=== PATIENT | female | born 1935 | race Caucasian/White ===

== ENCOUNTER 2019-08-16 16:30 | Observation (INO) ==
[2019-08-16] MEDS ORDERED: SODIUM CHLORIDE 0.9% 1000ML 1,000 ML IV SCH (18:30)
--- NOTE | 2019-08-16 18:51 | XRay Report ---
XR chest 1V portable CLINICAL HISTORY: syncope dyspnea COMPARISON STUDY: 08/16/2019 FINDINGS: The bones soft tissues and hemidiaphragms are normal. The cardiomediastinal silhouette is n ormal. The lungs are clear. The pulmonary vasculature is normal. IMPRESSION: Negative chest. ACT 112: Negative or not required by law. The above report was generated using voice recognition software. It may contain grammatical, syntax or spelling errors. Electronically signed by: Zachary Salguero M.D. 08/16/2019 6:50 PM
[2019-08-16 19:50] LABS: Basophils # (auto) 0.01 K/uL (0-0.2); Basophils % (auto) 0.1 %; Eosinophils # (auto) 0.06 K/uL (0-0.5); Eosinophils % (auto) 0.6 %; Hematocrit (blood only) 39.6 % (37-47); Hemoglobin 13.3 g/dL (12.0-16.0); Immature Granulocytes # (auto) 0.02 K/uL (0.00-0.02); Immature Granulocytes % (auto) 0.2 %; Lymphocytes # (auto) 1.38 K/uL (1.2-3.4); Lymphocytes % (auto) 14.8 %; Mean Corpuscular Hemoglobin 31.2 pg (25-34); Mean Corpuscular Hgb Conc 33.6 g/dL (32-36); Mean Platelet Volume 11.1 fL (7.4-10.4); Monocytes # (auto) 1.05 K/uL (0.11-0.59); Monocytes % (auto) 11.2 %; Neutrophils # (auto) 6.83 K/uL (1.4-6.5); Neutrophils % (auto) 73.1 %; Platelet Count 149 K/uL (130-400); RDW Coefficient of Variation 13.9 % (11.5-14.5); RDW Standard Deviation 46.9 fL (36.4-46.3); Red Blood Count 4.26 M/uL (4.2-5.4); White Blood Count 9.35 K/uL (4.8-10.8)
[2019-08-16 19:55] LABS: Appearance Urine Clear (Clear); Bilirubin Urine Negative (Negative); Blood Urine Negative (Negative); Color Urine Yellow; Glucose Urine UA Negative (Negative); Ketones Urine Negative (Negative); Leukocyte Esterase Urine 1+ (Negative); Nitrite Urine Negative (Negative); Protein Urine Negative (Negative); Specific Gravity Urine 1.005 (1.000-1.030); Urobilinogen Urine Negative (Negative)
[2019-08-16 20:02] LABS: Alanine Aminotransferase 17 U/L (12-78); Albumin Level 3.2 gm/dl (3.4-5.0); Aspartate Aminotransferase 14 U/L (15-37); BUN Creatinine Ratio 19.9 (10-20); Blood Urea Nitrogen 16 mg/dl (7-18); Carbon Dioxide 27 mmol/L (21-32); Chloride 98 mmol/L (98-107); Creatinine Clr Calc Pharmacy 47.9 ml/min; Est GFR (African American) 77.8; Est GFR (Non-African American) 67.1; Glucose 117 mg/dl (70-99); Magnesium 2.3 mg/dl (1.8-2.4); Sodium 132 mmol/L (136-145)
[2019-08-16 20:03] LABS: Bacteria Urine Automated Negative (Negative); Cast Urine Automated 0 /lpf (0-5); RBC Urine Automated 0-4 /hpf (0-4)
[2019-08-16 20:13] LABS: Albumin Globulin Ratio 0.8 (0.9-2); Alkaline Phosphatase 85 U/L (45-117); Bilirubin,Total 0.5 mg/dl (0.2-1); Globulin 4.1 gm/dl (2.5-4.0); Total Protein 7.3 gm/dl (6.4-8.2); Troponin I < 0.015 ng/ml (0-0.045)
--- NOTE | 2019-08-16 20:29 | CT Scan Report ---
HEAD CT NONCONTRAST CT DOSE: 537.48 mGy.cm HISTORY: syncope hit head TECHNIQUE: Multiaxial CT images of the head were performed without the use of intravenous contrast. A utomated exposure control was utilized for this study. A dose lowering technique was utilized adheri ng to the principles of ALARA. Comparison: None. Findings: The paranasal sinuses and mastoid air cells are clear. The calvarium and skull base are int act. There is no mass, hematoma, midline shift, acute infarct. White matter hypodensity is nonspecifi c but suggestive of microvascular ischemic change. The ventricles and sulci demonstrate mild age-rela dary involutional changes. Impression: No acute intracranial abnormality. Atrophy and microvascular ischemic changes. ACT 112: Negative or not required by law. Electronically signed by: Carter Edward M.D. 08/16/2019 8:28 PM
[2019-08-16] MEDS ORDERED: LABETALOL HCL IV 5 MG/ML 20ML IV STA (20:53)
--- NOTE | 2019-08-16 23:31 | Emergency Department Note ---
Entered by Bushra Bedolla acting as a scribe for Teo Molina DO History of Present Illness General Chief complaint: Syncope Stated complaint: REF'D BY DOCTOR, FAINTED THIS MORNING Source: patient Limitations: no limitations History of Present Illness Onset (ago): hour(s) (10.5) Location: head Pain Consistency: + other (episode) Maximum Pain Intensity: 8 Quality: + other (syncope ) Associated symptoms: no chest pain, no nausea/vomiting and no shortness of breath The patient is an 83 year old female who presents to the Emergency Room with complaints of a syncope episode that occurred at 08:00 this morning, about 10.5 hours ago. She reports that she felt lightheaded and woozy after making breakfast, noting that she's had a syncopal episode immediately after the symptoms. The patient reports that she fell backwards and hit her head on the handle of the oven door. The patient complains of right upper extremity soreness and back "tightness." She denies any chest pain, SOB, nausea/vomiting, urinary symptoms, and chest palpitations. The patient denies any history of heart disease and HTN. She notes a family history of heart disease. The patient reports that she was seen by her PCP, and she was referred here. Home Medications Home Medications Medication Instructions Recorded Confirmed Type ascorbic acid (vitamin C) 500 mg PO QAM #0 03/16/15 08/16/19 History Aqua-E Concentrate 0 unit PO QAM #0 03/29/18 08/16/19 History calcium carbonate-vitamin D3 1 tab PO QAM #0 03/29/18 08/16/19 History [Calcium 500 + D] cholecalciferol (vitamin D3) 1,000 unit PO QAM #0 03/29/18 08/16/19 History Allergies Allergy/AdvReac Type Severity Reaction Status Date / Time Sulfa (Sulfonamide Allergy Severe Hives Verified 08/16/19 18:41 Antibiotics) Past Med/Surg History Medical History Breast abscess LEFT BREAST, STAPH INFECTION DRAINED UNDER ANESTHESIA Surgical History History of colonoscopy 10 YR AGO S/P cataract extraction and insertion of intraocular lens Right cataract 04/24/18 Social History Preferred Language: Sri Lankan Communication Ability: Effective Procurement Director Required: No Beliefs That Will Affect Care: Taoist Taoist Beliefs: BAPTISM Current Living Situation: Spouse and Other Current Living Situation Comment: 55+ COMMUNITY Feels Safe at Home: Yes Smoking Status: Never smoker Second Hand Exposure: Yes (FATHER SMOKED) ; Hx Alcohol Use: Yes Hx Substance Use: No Review of Systems See HPI for pertinent positives & negatives. and A total of 10 systems reviewed and were otherwise negative Physical Exam Vital Signs Vital Signs - 24 hr 08/16/19 16:59 08/16/19 19:40 08/16/19 19:42 Temperature 36.8 C Temperature Source Oral Pulse Rate 96 H Pulse Rate [Left] 91 H Pulse Rate from SpO2 Sensor Pulse Rhythm Regular Pulse Rhythm [Left] Regular Pulse Strength Normal Respiratory Rate 20 24 Respiratory Effort / Characteristics Non-Labored Spontaneous Non-Labored Respiratory Depth Normal Normal Respiratory Pattern Regular Regular Blood Pressure 196/108 H Blood Pressure [Left Arm] 197/100 H Blood Pressure Mean 137 Blood Pressure Mean [Left Arm] 132 Blood Pressure Position Sitting Pulse Oximetry 95 96 97 Oxygen Delivery Method Room Air Room Air Room Air Sepsis Recent Fever Within 48 Hours No Sepsis New/Unexplained Change in Mental Status No Sepsis Action Taken by Nursing No Action Required 08/16/19 20:00 08/16/19 21:12 08/16/19 21:30 Temperature Temperature Source Pulse Rate 84 91 H 85 Pulse Rate [Left] 92 H Pulse Rate from SpO2 Sensor 85 92 H 86 Pulse Rhythm Pulse Rhythm [Left] Regular Pulse Strength Respiratory Rate 20 20 19 Respiratory Effort / Characteristics Non-Labored Respiratory Depth Normal Respiratory Pattern Regular Blood Pressure 182/94 H 195/95 H 167/75 H Blood Pressure [Left Arm] 195/95 H Blood Pressure Mean 111 159 89 Blood Pressure Mean [Left Arm] 128 Blood Pressure Position Pulse Oximetry 96 95 94 Oxygen Delivery Method Room Air Sepsis Recent Fever Within 48 Hours Sepsis New/Unexplained Change in Mental Status Sepsis Action Taken by Nursing 08/16/19 21:31 08/16/19 22:00 08/16/19 22:30 Temperature Temperature Source Pulse Rate 79 83 Pulse Rate [Left] 86 Pulse Rate from SpO2 Sensor 79 83 Pulse Rhythm Pulse Rhythm [Left] Regular Pulse Strength Respiratory Rate 20 35 H 15 Respiratory Effort / Characteristics Non-Labored Respiratory Depth Normal Respiratory Pattern Regular Blood Pressure 168/77 H 161/75 H Blood Pressure [Left Arm] 167/75 H Blood Pressure Mean 104 88 Blood Pressure Mean [Left Arm] 105 Blood Pressure Position Pulse Oximetry 93 96 96 Oxygen Delivery Method Room Air Sepsis Recent Fever Within 48 Hours Sepsis New/Unexplained Change in Mental Status Sepsis Action Taken by Nursing 08/16/19 23:00 Temperature Temperature Source Pulse Rate 88 Pulse Rate [Left] Pulse Rate from SpO2 Sensor 89 Pulse Rhythm Pulse Rhythm [Left] Pulse Strength Respiratory Rate 17 Respiratory Effort / Characteristics Respiratory Depth Respiratory Pattern Blood Pressure 161/79 H Blood Pressure [Left Arm] Blood Pressure Mean 92 Blood Pressure Mean [Left Arm] Blood Pressure Position Pulse Oximetry 96 Oxygen Delivery Method Sepsis Recent Fever Within 48 Hours Sepsis New/Unexplained Change in Mental Status Sepsis Action Taken by Nursing GENERAL: sitting up in bed, alert, well appearing, well nourished, no distress, non-toxic HEAD: contusion to the right frontal region EYE EXAM: normal conjunctiva OROPHARYNX: no exudate, no erythema, lips, buccal mucosa, and tongue normal and mucous membranes are moist NECK: supple, no nuchal rigidity, no adenopathy, non-tender LUNGS: Clear to auscultation. Normal chest wall mechanics HEART: no murmurs, S1 normal and S2 normal ABDOMEN: abdomen soft, non-tender, normo-active bowel sounds, no masses, no rebound or guarding. BACK: Back is symmetrical on inspection and there is no deformity, no midline tenderness, no CVA tenderness. SKIN: no rashes and no bruising UPPER EXTREMITIES: upper extremities are grossly normal. LOWER EXTREMITIES: No pitting edema. NEURO EXAM: Normal sensorium, cranial nerves II-XII intact, normal speech, no weakness of arms, no weakness of legs. No drift. Finger to nose intact. Gross sensation intact. GCS 15. Course Course ED COURSE: Vital signs were reviewed and showed hypertension. The patients medical record was reviewed The above diagnostic studies were performed and reviewed. ED treatments and interventions as stated above. 1828: The patient was evaluated in room C12B. A complete history and physical examination was performed. 2258: Upon reevaluation, the patient is stable. I discussed my findings with the patient and she understands and agrees with the treatment plan. 2101: [facility], about the patient's case. He will further evaluate the patient. Based on the patients age, coexisting illnesses, exam and lab findings the decision to treat as an inpatient was made. The patient remained stable while under my care. The patient will be evaluated for further management. Administered Medications Discontinued Medications Sodium Chloride (Nss 1000ml) 1,000 mls @ 999 mls/hr IV .Q1H1M KIRK Stop: 08/16/19 19:30 Last Infusion: 08/16/19 20:50 Dose: 0 mls/hr Documented by: [id number] Admin: 08/16/19 19:45 Dose: 999 mls/hr Documented by: [id number] Labetalol HCl (Normodyne) 10 mg IV NOW STA Stop: 08/16/19 20:54 Last Admin: 08/16/19 21:27 Dose: 10 mg Documented by: [id number] Cosigned by: [id number] Medical Decision Making Differential Diagnosis Differential diagnosis includes etiologies such as vasovagal event, infection, hypoglycemia, electrolyte abnormalities, cardiac sources, intracerebral event, toxicologic, neurologic, as well as others were entertained. Medical Records Attestation: I reviewed the patient's medical records. Home Medications Current Medication List: was personally reviewed by me Laboratory Data Attestation: I reviewed the patient's lab results. Result diagrams: 08/16/19 19:25 08/16/19 19:25 Lab Results 08/16/19 08/16/19 08/16/19 Range/Units 19:25 19:25 19:40 WBC 9.35 (4.8-10.8) K/uL RBC 4.26 (4.2-5.4) M/uL Hgb 13.3 (12.0-16.0) g/dL Hct 39.6 (37-47) % MCV 93.0 (80-100) fL MCH 31.2 (25-34) pg MCHC 33.6 (32-36) g/dL RDW Std Deviation 46.9 H (36.4-46.3) fL RDW Coeff of Clarence 13.9 (11.5-14.5) % Plt Count 149 (130-400) K/uL MPV 11.1 H (7.4-10.4) fL Immature Gran % (Auto) 0.2 % Neut % (Auto) 73.1 % Lymph % (Auto) 14.8 % [place] % (Auto) 11.2 % Eos % (Auto) 0.6 % Baso % (Auto) 0.1 % Immature Gran # (Auto) 0.02 (0.00-0.02) K/uL Neut # (Auto) 6.83 H (1.4-6.5) K/uL Lymph # (Auto) 1.38 (1.2-3.4) K/uL [place] # (Auto) 1.05 H (0.11-0.59) K/uL Eos # (Auto) 0.06 (0-0.5) K/uL Baso # (Auto) 0.01 (0-0.2) K/uL Sodium 132 L (136-145) mmol/L Potassium 4.0 (3.5-5.1) mmol/L Chloride 98 (98-107) mmol/L Carbon Dioxide 27 (21-32) mmol/L Anion Gap 7.0 (3-11) BUN 16 (7-18) mg/dl Creatinine 0.82 (0.6-1.2) mg/dl Est Cr Clr Drug Dosing 47.9 ml/min Est GFR ( Amer) 77.8 Est GFR (Non-Af Amer) 67.1 BUN/Creatinine Ratio 19.9 (10-20) Glucose 117 H (70-99) mg/dl Calcium 9.0 (8.5-10.1) mg/dl Magnesium 2.3 (1.8-2.4) mg/dl Total Bilirubin 0.5 (0.2-1) mg/dl AST 14 L (15-37) U/L ALT 17 (12-78) U/L Alkaline Phosphatase 85 (45-117) U/L Troponin I < 0.015 (0-0.045) ng/ml Total Protein 7.3 (6.4-8.2) gm/dl Albumin 3.2 L (3.4-5.0) gm/dl Globulin 4.1 H (2.5-4.0) gm/dl Albumin/Globulin Ratio 0.8 L (0.9-2) TSH 1.440 (0.300-4.500) uIu/ml Urine Color Yellow Urine Appearance Clear (Clear) Urine pH 7.0 (4.5-7.5) Ur Specific [place] 1.005 (1.000-1.030) Urine Protein Negative (Negative) Urine Glucose (UA) Negative (Negative) Urine Ketones Negative (Negative) Urine Blood Negative (Negative) Urine Nitrite Negative (Negative) Urine Bilirubin Negative (Negative) Urine Urobilinogen Negative (Negative) Ur Leukocyte Esterase 1+ H (Negative) Urine WBC (Auto) 1-5 (0-5) /hpf Urine RBC (Auto) 0-4 (0-4) /hpf U Hyaline Cast (Auto) 0 (0-5) /lpf U Epithel Cells (Auto) 10-20 H (0-5) /lpf Urine Bacteria (Auto) Negative (Negative) Imaging Data Radiologist's Impression: Radiology results as stated below per my review and the radiologist's interpretation: XR chest 1V portable CLINICAL HISTORY: syncope dyspnea COMPARISON STUDY: 08/16/2019 FINDINGS: The bones soft tissues and hemidiaphragms are normal. The cardiomediastinal silhouette is normal. The lungs are clear. The pulmonary vasculature is normal. IMPRESSION: Negative chest. ACT 112: Negative or not required by law. The above report was generated using voice recognition software. It may contain grammatical, syntax or spelling errors. Electronically signed by: Zachary Salguero M.D. 08/16/2019 6:[address] CT DOSE: 537.48 mGy.cm HISTORY: syncope hit head TECHNIQUE: Multiaxial CT images of the head were performed without the use of intravenous contrast. Automated exposure control was utilized for this study. A dose lowering technique was utilized adhering to the principles of ALARA. Comparison: None. Findings: The paranasal sinuses and mastoid air cells are clear. The calvarium and skull base are intact. There is no mass, hematoma, midline shift, acute infarct. White matter hypodensity is nonspecific but suggestive of microvascular ischemic change. The ventricles and sulci demonstrate mild age-related involutional changes. Impression: No acute intracranial abnormality. Atrophy and microvascular ischemic changes. ACT 112: Negative or not required by law. Electronically signed by: Carter Edward M.D. 08/16/2019 8:28 PM ECG Data Attestation: I personally reviewed and interpreted this ECG as follows: Indication: + syncope Rate (beats per minute): 90 Rhythm: + sinus rhythm ECG Findings: + Other (normal QTC); no PVCs Blood Pressure Blood Pressure Findings: Elevated blood pressure Blood Pressure Disposition: further management by hospitalist SHANE Narrative Patient is an 83-year-old female who presents the ER for syncopal episode which occurred earlier today. She notes that she felt lightheaded and she passed out. She did hit the back of her head. She has no other complaints at this time. IV was established blood work was obtained. Labs show no significant leukocytosis or anemia. BMP with mild hyponatremia. LFTs bilirubin troponin was negative. TSH unremarkable. UA was negative. Chest x-ray along with CT head was unremarkable. EKG was benign. Patient takes no medications. Blood pressure was 199 on 2 separate occasions. This in combination with her syncopal episode did feel was prudent and further evaluation was warranted by the hospitalist. Patient was given IV labetalol and blood pressures trended down to 160s. Patient was updated bedside and discussed with the hospitalist for observation. Impression & Plan Syncope, Hypertensive urgency, Acute hyponatremia Discharge Plan Visit Data Chief Complaint: Syncope Stated Complaint: REF'D BY DOCTOR, FAINTED THIS MORNING ED Provider: Teo Molina Discharge Problem: Syncope, Hypertensive urgency, Acute hyponatremia Patient Disposition: Being Evaluated by Hospitalist Forms Stand Alone Forms: My [facility] Prescriptions Prescriptions: No Action ascorbic acid (vitamin C) 500 mg Capsule, Extended Release 500 mg PO QAM Qty: 0 RF: 0 cholecalciferol (vitamin D3) 1,000 unit Capsule 1,000 unit PO QAM Qty: 0 RF: 0 calcium carbonate-vitamin D3 [Calcium 500 + D] 500 mg(1,250mg) -200 unit Tablet 1 tab PO QAM Qty: 0 RF: 0 Aqua-E Concentrate 75 unit/mL Drops 0 unit PO QAM Qty: 0 RF: 0 Referrals Referrals: Emiyl Mcdermott DO [Primary Care Provider] - Discharge Problem: Syncope Qualifiers: Syncope type: unspecified Qualified Code(s): R55 - Syncope and collapse The scribe's documentation has been prepared under my direction and personally reviewed by me in its entirety. I confirm that the note above accurately reflect s all work, treatment, procedures, and medical decision making performed by me.
[2019-08-17] MEDS ORDERED: OXYCODONE HCL IR 5 MG TAB (IMMEDIATE RELEASE) PO STA (00:30)
--- NOTE | 2019-08-17 00:30 | History & Physical Report ---
Date of Service August 17, 2019 Assessment & Plan (1) Syncope: Possible orthostasis Possible mild clinical dehydration given hyponatremia Hypertensive urgency secondary to posttraumatic back pain, right shoulder pain Rule out bony injury Asymptomatic pyuria OBS PCU Check orthostatic vitals, TTE for syncope work-up Analgesia Hold maintenance antihypertensives for now until we have objective evidence of chronic BP elevation. CT thoracic/lumbar spine RE posttraumatic back pain Right shoulder x-ray Re: Right shoulder pain PT OT eval Following urine cultures, hold antibiotics for now DVT prophylaxis per Lovenox subcu Full code History of Present Illness Chief Complaint: Syncope, back pain Primary Care Provider: Emily Mcdermott, DO History obtained from patient, family, and records. Medical history significant for skin cancer status post surgery, osteoporosis. Patient's had dry cough symptoms for about 2 days, no fever, no chills. Yesterday morning, patient was getting ready to eat breakfast when she started feeling faint like she was going to fall down. Unwitnessed syncopal event. Patient found by who heard her fall down. Patient may have been out for about 2 minutes as per at the most. Patient denies chest pain, S OB prior to fall. No witnessed seizures, tongue biting. Prior episodes in the past which patient attributes to not drinking enough water. Upper back and right shoulder pain, right-sided headache upon waking up. Patient seen at PCPs office and directed to the ER. At the ER, SBP noted to be 190s. Labetalol given at the ER. 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 Allergies Allergy/AdvReac Type Severity Reaction Status Date / Time Sulfa (Sulfonamide Allergy Severe Hives Verified 08/16/19 18:41 Antibiotics) Home Medications Home Medications Medication Instructions Recorded Confirmed Type ascorbic acid (vitamin C) 500 mg PO QAM #0 03/16/15 08/16/19 History Aqua-E Concentrate 0 unit PO QAM #0 03/29/18 08/16/19 History calcium carbonate-vitamin D3 1 tab PO QAM #0 03/29/18 08/16/19 History [Calcium 500 + D] cholecalciferol (vitamin D3) 1,000 unit PO QAM #0 03/29/18 08/16/19 History Past Med/Surg History Medical History Breast abscess LEFT BREAST, STAPH INFECTION DRAINED UNDER ANESTHESIA Surgical History History of colonoscopy 10 YR AGO S/P cataract extraction and insertion of intraocular lens Right cataract 04/24/18 Social History Preferred Language: Angolan Communication Ability: Effective Grey Tender Required: No Beliefs That Will Affect Care: None Current Living Situation: Spouse Current Living Situation Comment: 55+ COMMUNITY Other Information That Helps Us Care for You: No Feels Safe at Home: Yes Safety Concerns: Feels Safe At This Time Smoking Status: Never smoker Do You Dip or Chew Tobacco: No ; Second Hand Exposure: No ; Tobacco Cessation Education Requested by Patient: No Hx Alcohol Use: No Hx Substance Use: No Review of Systems Review of Systems: As per HPI, all 10 systems reviewed, all other ROS negative Physical Exam Physical Exam: GENERAL: Comfortable, pleasant, looks younger for stated age, no respiratory distress SKIN: Normal color, warm HEENT: [place] palpebral conjunctivae, no ptosis, dry buccal mucosa NECK : Supple, no tenderness CHEST : CTA, no tenderness HEART : RRR, no obvious murmurs BACK : Upper back tenderness ABDOMEN: Some distention, nontender EXTREMITIES : No LE swelling/tenderness, no other conspicuous deformities noted NEUROLOGIC : Coherent, no facial asymmetry, no other gross focality Results & Data Vital Signs (Past 12 Hours) Vital Signs Temp Pulse Pulse Resp BP BP Pulse Ox 08/16/19 23:00 88 17 161/79 H 96 08/16/19 22:30 83 15 161/75 H 96 08/16/19 22:00 79 35 H 168/77 H 96 08/16/19 21:31 86 20 167/75 H 93 08/16/19 21:30 85 19 167/75 H 94 08/16/19 21:12 91 H 92 H 20 195/95 H 195/95 H 95 08/16/19 20:00 84 20 182/94 H 96 08/16/19 19:42 97 08/16/19 19:40 91 H 24 197/100 H 96 08/16/19 16:59 36.8 C 96 H 20 196/108 H 95 Laboratory Results Laboratory Results WBC 9.35 K/uL (4.8-10.8) 08/16/19 19: RBC 4.26 M/uL (4.2-5.4) 08/16/19 19: Hgb 13.3 g/dL (12.0-16.0) 08/16/19 19:25 Hct 39.6 % (37-47) 08/16/19 19: MCV 93.0 fL (80-100) 08/16/19: MCH 31.2 pg (25-34) 08/16/19: MCHC 33.6 g/dL (32-36) 08/16/19: RDW Std Deviation 46.9 fL (36.4-46.3) H 08/16/19: RDW Coeff of Clarence 13.9 % (11.5-14.5) 08/16/19: Plt Count 149 K/uL (130-400) 08/16/19: MPV 11.1 fL (7.4-10.4) H 08/16/19 19:25 Immature Gran % (Auto) 0.2 % 08/16/19 19: Neut % (Auto) 73.1 % 08/16/19: Lymph % (Auto) 14.8 % 08/16/19: [place] % (Auto) 11.2 % 08/16/19:25 Eos % (Auto) 0.6 % 08/16/19: Baso % (Auto) 0.1 % 08/16/19: Immature Gran # (Auto) 0.02 K/uL (0.00-0.02) 08/16/19: Neut # (Auto) 6.83 K/uL (1.4-6.5) H 08/16/19: Lymph # (Auto) 1.38 K/uL (1.2-3.4) 08/16/19: [place] # (Auto) 1.05 K/uL (0.11-0.59) H 08/16/19 19:25 Eos # (Auto) 0.06 K/uL (0-0.5) 08/16/19: Baso # (Auto) 0.01 K/uL (0-0.2) 08/16/19 19:25 Sodium 132 mmol/L (136-145) L 08/16/19 19:25 Potassium 4.0 mmol/L (3.5-5.1) 08/16/19 19:25 Chloride 98 mmol/L (98-107) 08/16/19 19:25 Carbon Dioxide 27 mmol/L (21-32) 08/16/19 19:25 Anion Gap 7.0 (3-11) 08/16/19 19:25 BUN 16 mg/dl (7-18) 08/16/19 19:25 Creatinine 0.82 mg/dl (0.6-1.2) 08/16/19 19:25 Est Cr Clr Drug Dosing 47.9 ml/min 08/16/19 19:25 Est GFR ( Amer) 77.8 08/16/19 19:25 Est GFR (Non-Af Amer) 67.1 08/16/19 19:25 BUN/Creatinine Ratio 19.9 (10-20) 08/16/19 19:25 Glucose 117 mg/dl (70-99) H 08/16/19 19:25 Calcium 9.0 mg/dl (8.5-10.1) 08/16/19 19:25 Magnesium 2.3 mg/dl (1.8-2.4) 08/16/19 19:25 Total Bilirubin 0.5 mg/dl (0.2-1) 08/16/19 19:25 AST 14 U/L (15-37) L 08/16/19 19:25 ALT 17 U/L (12-78) 08/16/19 19:25 Alkaline Phosphatase 85 U/L (45-117) 08/16/19 19:25 Troponin I < 0.015 ng/ml (0-0.045) 08/16/19 19:25 Total Protein 7.3 gm/dl (6.4-8.2) 08/16/19 19:25 Albumin 3.2 gm/dl (3.4-5.0) L 08/16/19 19:25 Globulin 4.1 gm/dl (2.5-4.0) H 08/16/19 19:25 Albumin/Globulin Ratio 0.8 (0.9-2) L 08/16/19 19:25 TSH 1.440 uIu/ml (0.300-4.500) 08/16/19 19:25 Urine Color Yellow 08/16/19 19:40 Urine Appearance Clear (Clear) 08/16/19 19:40 Urine pH 7.0 (4.5-7.5) 08/16/19 19:40 Ur Specific [place] 1.005 (1.000-1.030) 08/16/19 19:40 Urine Protein Negative (Negative) 08/16/19 19:40 Urine Glucose (UA) Negative (Negative) 08/16/19 19:40 Urine Ketones Negative (Negative) 08/16/19 19:40 Urine Blood Negative (Negative) 08/16/19 19:40 Urine Nitrite Negative (Negative) 08/16/19 19:40 Urine Bilirubin Negative (Negative) 08/16/19 19:40 Urine Urobilinogen Negative (Negative) 08/16/19 19:40 Ur Leukocyte Esterase 1+ (Negative) H 08/16/19 19:40 Urine WBC (Auto) 1-5 /hpf (0-5) 08/16/19 19:40 Urine RBC (Auto) 0-4 /hpf (0-4) 08/16/19 19:40 U Hyaline Cast (Auto) 0 /lpf (0-5) 08/16/19 19:40 U Epithel Cells (Auto) 10-20 /lpf (0-5) H 08/16/19 19:40 Urine Bacteria (Auto) Negative (Negative) 08/16/19 19:[address] head: No acute intracranial abnormality. Atrophy and microvascular ischemic changes. Chest x-ray: Negative EKG as per my interpretation: Rate 90, NSR, normal axis, no ischemia (1) Syncope Syncope type: unspecified Qualified Code(s): R55 - Syncope and collapse
[2019-08-17] MEDS ORDERED: NITROGLYCERIN SL 0.4 MG/TAB TAB SL PRN (02:35)
[2019-08-17] MEDS ORDERED: PROMETHAZINE HCL 12.5 MG in SODIUM CHLORIDE 0.9% 50 ML IV PRN (02:35)
[2019-08-17] MEDS ORDERED: SODIUM CHLORIDE 0.9% 1000ML 1,000 ML IV ONE (02:35)
[2019-08-17] MEDS ORDERED: OXYCODONE HCL IR 5 MG TAB (IMMEDIATE RELEASE) PO PRN (02:35)
--- NOTE | 2019-08-17 05:53 | XRay Report ---
XR shoulder RT min 2V routine CLINICAL HISTORY: pain pain COMPARISON: None. DISCUSSION: The bones and joint spaces appear intact. There is no evidence of fracture, dislocation o r bony disease. Minimal degenerative change acromioclavicular joint. IMPRESSION: Minimal degenerative change. No acute process. ACT 112: Negative or not required by law. The above report was generated using voice recognition software. It may contain grammatical, syntax or spelling errors. Electronically signed by: Zachary Salguero M.D. 08/17/2019 5:52 AM
--- NOTE | 2019-08-17 06:05 | CT Scan Report ---
CT thoracic spine wo con CT DOSE: HISTORY: Pain back pain TECHNIQUE: Multiaxial CT images of the thoracic spine were performed and reformatted in the sagittal and coronal plane without the use of contrast. A dose lowering technique was utilized adhering to th e principles of ALARA. COMPARISON: None. FINDINGS: Mild compression deformity T3. Minimal retropulsion of the inferior endplate estimated 2.5 mm. Moderate degenerative disc changes throughout the remainder of the thoracic region. No additional acu te compression deformity. IMPRESSION: 1. Mild compression deformities of T3 with slight posterior retropulsion of the inferior endplate. 2. Mild degenerative disc changes throughout the remainder of the thoracic region. ACT 112: Negative or not required by law. The above report was generated using voice recognition software. It may contain grammatical, syntax or spelling errors. Electronically signed by: Zachary Salguero M.D. 08/17/2019 6:04 AM
--- NOTE | 2019-08-17 06:06 | CT Scan Report ---
CT lumbar spine wo con CT DOSE: 720.27 mGy.cm HISTORY: Pain back pain TECHNIQUE: Multiaxial CT images of the lumbar spine were performed and reformatted in the sagittal an d coronal plane without the use of contrast. A dose lowering technique was utilized adhering to the principles of ALARA. COMPARISON: None. FINDINGS: Significant degenerative disc change L5-S1. Otherwise negative CT of the lumbar spine. No major compromise of the spinal canal. IMPRESSION: Significant degenerative disc change L5-S1. Otherwise negative study. ACT 112: Negative or not required by law. The above report was generated using voice recognition software. It may contain grammatical, syntax or spelling errors. Electronically signed by: Zachary Salguero M.D. 08/17/2019 6:05 AM
[2019-08-17] MEDS: LIDOCAINE 5% 1 PATCH TD SCH (06:12)
[2019-08-17 06:50] LABS: Basophils # (auto) 0.01 K/uL (0-0.2); Basophils % (auto) 0.1 %; Eosinophils % (auto) 1.4 %; Hemoglobin 11.8 g/dL (12.0-16.0); Immature Granulocytes # (auto) 0.02 K/uL (0.00-0.02); Immature Granulocytes % (auto) 0.3 %; Lymphocytes # (auto) 1.61 K/uL (1.2-3.4); Lymphocytes % (auto) 22.1 %; Mean Corpuscular Hemoglobin 30.9 pg (25-34); Mean Corpuscular Hgb Conc 32.8 g/dL (32-36); Mean Corpuscular Volume 94.2 fL (80-100); Mean Platelet Volume 10.7 fL (7.4-10.4); Monocytes # (auto) 0.96 K/uL (0.11-0.59); Monocytes % (auto) 13.2 %; Neutrophils % (auto) 62.9 %; Platelet Count 138 K/uL (130-400); RDW Coefficient of Variation 13.7 % (11.5-14.5); RDW Standard Deviation 47.4 fL (36.4-46.3); Red Blood Count 3.82 M/uL (4.2-5.4)
[2019-08-17 07:22] LABS: BUN Creatinine Ratio 13.4 (10-20); Calcium 8.2 mg/dl (8.5-10.1); Creatinine Clr Calc Pharmacy 47.9 ml/min; Est GFR (African American) 77.8; Est GFR (Non-African American) 67.1; Potassium 3.9 mmol/L (3.5-5.1)
[2019-08-17] MEDS ORDERED: ENOXAPARIN INJ 30 MG/0.3 ML SYR SQ SCH (09:00)
[2019-08-17] MEDS ORDERED: TRAMADOL HCL 50 MG TABLET PO PRN (12:06)
--- NOTE | 2019-08-17 12:11 | Hospitalist Progress Note ---
Date of Service August 17, 2019 Assessment & Plan (1) Syncope: SYNCOPAL EPISODE r/o Orthostasis Orthostatic VS gentle IV fluids given r/o Arrhythmia Tele monitoring If unrevealing patient may need outpatient ZIO Patch monitor r/o Cardiac Structural Abnormalities Echo: pending CVA ruled out: CT head negative ACS ruled out : EKG no signs of acute ischemia unlikely Seizure Hypertensive urgency secondary to posttraumatic back pain, right shoulder pain BP normal at outpatient clinic visit prior to admission given Labetalol IV one dose at the ER, BP improved usually well controlled per patient Mild Thoracic Compression Fracture T 3, Disch Herniation s/p Fall PRN Tylenol, Tramadol PT OT eval DVT prophylaxis SCDs for now in light of recent fall Full code Disposition anticipate d/c home tomorrow when medically stable will need outpatient Senior Director [employer] Case and plan of care discussed with patient and her , daughter and son-in-law in detail at length Questions answered They are comfortable, understanding, agreeable with the plan of care Total time spent around 40 minutes Subjective Follow-up for syncopal episode Seen with patient's family at bedside visiting Patient is awake alert oriented x3, in good spirits, smiling States she feels fine overall Denies headache, dizziness, palpitations, chest pain, shortness of breath, nausea, abdominal pain, dysuria No cough or congestion today Patient reports that she was preparing breakfast at the kitchen, standing, chopping fruits and mixing cereal, when she suddenly felt "clammy" all over, denies feeling dizzy but did feel that she was going to pass out, she then fell while trying to walk to the chair. She reports she may have passed out for a minute but was able to awaken and stand up on her own, back to the chair. No confusion. Family and patient recounts that last June 2019, while at [employer], after prolonged period of standing, the patient felt "clammy" like to feeling of passing out but she sat down and did not pass out. Symptoms resolved after a few minutes. Review of Systems Review of Systems: All systems reviewed & are unremarkable except as noted in HPI & below Physical Exam Physical Exam: General- oriented x 3, not in distress, speaks in sentences with no effort or accessory muscle use Head-positive faint hematoma on the right forehead Eyes- PERRL, EOMI, anicteric ENT- oropharynx clear Neck- supple, no JVD, no adenopathy, no thyromegaly; carotids +2/2, no bruits appreciated Lungs- clear to auscultation bilaterally, no rales/wheezes Heart- normal rate, regular rhythm; no murmur, no gallop, no rub appreciated Abdomen- normal bowel sounds, nondistended, soft, nontender, no masses or hepatosplenomegaly Extremities- no pretibial edema, no calf tenderness; peripheral pulses intact Back-Lidoderm patch in place, mild tenderness upper thoracic area Neuro- alert, oriented x 3; CN 2-12 grossly intact; motor 5/5 bilaterally;sensation 100% on all extremities; no other gross focal neurologic deficits Skin- warm & dry Results & Data Vital Signs (Past 12 Hours) Vital Signs Temp Pulse Pulse Resp BP BP Pulse Ox 08/17/19 07:14 37.3 C 82 17 130/55 L 92 08/17/19 03:03 08/17/19 02:45 37.2 C 81 16 155/61 H 94 08/17/19 02:33 37.1 C 91 H 18 170/87 H 96 08/17/19 01:01 83 16 93 08/17/19 01:00 84 14 153/77 H 93 08/17/19 00:47 92 H 19 171/83 H 90 08/17/19 00:46 91 H 20 177/85 H 08/17/19 00:45 91 H 24 158/80 H 92 08/17/19 00:31 84 19 95 08/17/19 00:30 84 17 162/80 H 95 Pulse Ox 08/17/19 07:14 08/17/19 03:03 95 08/17/19 02:45 08/17/19 02:33 08/17/19 01:01 08/17/19 01:00 08/17/19 00:47 08/17/19 00:46 08/17/19 00:45 08/17/19 00:31 08/17/19 00:30 Laboratory Results Laboratory Results - last 24 hr 08/16/19 08/16/19 08/16/19 19:25 19:25 19:40 WBC 9.35 RBC 4.26 Hgb 13.3 Hct 39.6 MCV 93.0 MCH 31.2 MCHC 33.6 RDW Std Deviation 46.9 H RDW Coeff of Clarence 13.9 Plt Count 149 MPV 11.1 H Immature Gran % (Auto) 0.2 Neut % (Auto) 73.1 Lymph % (Auto) 14.8 [place] % (Auto) 11.2 Eos % (Auto) 0.6 Baso % (Auto) 0.1 Immature Gran # (Auto) 0.02 Neut # (Auto) 6.83 H Lymph # (Auto) 1.38 [place] # (Auto) 1.05 H Eos # (Auto) 0.06 Baso # (Auto) 0.01 Sodium 132 L Potassium 4.0 Chloride 98 Carbon Dioxide 27 Anion Gap 7.0 BUN 16 Creatinine 0.82 Est Cr Clr Drug Dosing 47.9 Est GFR ( Amer) 77.8 Est GFR (Non-Af Amer) 67.1 BUN/Creatinine Ratio 19.9 Glucose 117 H Calcium 9.0 Magnesium 2.3 Total Bilirubin 0.5 AST 14 L ALT 17 Alkaline Phosphatase 85 Troponin I < 0.015 Total Protein 7.3 Albumin 3.2 L Globulin 4.1 H Albumin/Globulin Ratio 0.8 L TSH 1.440 Urine Color Yellow Urine Appearance Clear Urine pH 7.0 Ur Specific [place] 1.005 Urine Protein Negative Urine Glucose (UA) Negative Urine Ketones Negative Urine Blood Negative Urine Nitrite Negative Urine Bilirubin Negative Urine Urobilinogen Negative Ur Leukocyte Esterase 1+ H Urine WBC (Auto) 1-5 Urine RBC (Auto) 0-4 U Hyaline Cast (Auto) 0 U Epithel Cells (Auto) 10-20 H Urine Bacteria (Auto) Negative 08/17/19 08/17/19 06:25 06:25 WBC 7.30 RBC 3.82 L Hgb 11.8 L Hct 36.0 L MCV 94.2 MCH 30.9 MCHC 32.8 RDW Std Deviation 47.4 H RDW Coeff of Clarence 13.7 Plt Count 138 MPV 10.7 H Immature Gran % (Auto) 0.3 Neut % (Auto) 62.9 Lymph % (Auto) 22.1 [place] % (Auto) 13.2 Eos % (Auto) 1.4 Baso % (Auto) 0.1 Immature Gran # (Auto) 0.02 Neut # (Auto) 4.60 Lymph # (Auto) 1.61 [place] # (Auto) 0.96 H Eos # (Auto) 0.10 Baso # (Auto) 0.01 Sodium 138 Potassium 3.9 Chloride 105 Carbon Dioxide 28 Anion Gap 5.0 BUN 11 Creatinine 0.82 Est Cr Clr Drug Dosing 47.9 Est GFR ( Amer) 77.8 Est GFR (Non-Af Amer) 67.1 BUN/Creatinine Ratio 13.4 Glucose 104 H Calcium 8.2 L Magnesium Total Bilirubin AST ALT Alkaline Phosphatase Troponin I Total Protein Albumin Globulin Albumin/Globulin Ratio TSH Urine Color Urine Appearance Urine pH Ur Specific [place] Urine Protein Urine Glucose (UA) Urine Ketones Urine Blood Urine Nitrite Urine Bilirubin Urine Urobilinogen Ur Leukocyte Esterase Urine WBC (Auto) Urine RBC (Auto) U Hyaline Cast (Auto) U Epithel Cells (Auto) Urine Bacteria (Auto) (1) Syncope Syncope type: unspecified Qualified Code(s): R55 - Syncope and collapse
--- NOTE | 2019-08-17 12:53 | Electrocardiogram Report ---
Test Reason : Blood Pressure : / mmHG Vent. Rate : 090 BPM Atrial Rate : 090 BPM P-R Int : 150 ms QRS Dur : 082 ms QT Int : 344 ms P-R-T Axes : 067 015 059 degrees QTc Int : 420 ms Poor data quality, interpretation may be adversely affected Normal sinus rhythm Normal ECG No previous ECGs available Confirmed by Justin Farooq ([id number]) on 08/17/2019 12:52:55 PM Referred By: Emily Mcdermott Confirmed By:Justin Farooq
[2019-08-18] MEDS: ACETAMINOPHEN 325 MG TAB PO PRN ×2 (04:02→14:34)
[2019-08-18 06:14] LABS: Basophils # (auto) 0.02 K/uL (0-0.2); Basophils % (auto) 0.2 %; Eosinophils # (auto) 0.12 K/uL (0-0.5); Eosinophils % (auto) 1.4 %; Hemoglobin 12.6 g/dL (12.0-16.0); Immature Granulocytes # (auto) 0.02 K/uL (0.00-0.02); Immature Granulocytes % (auto) 0.2 %; Lymphocytes # (auto) 1.05 K/uL (1.2-3.4); Lymphocytes % (auto) 12.2 %; Mean Corpuscular Hemoglobin 31.3 pg (25-34); Mean Corpuscular Hgb Conc 33.2 g/dL (32-36); Mean Corpuscular Volume 94.3 fL (80-100); Mean Platelet Volume 11.3 fL (7.4-10.4); Monocytes # (auto) 1.09 K/uL (0.11-0.59); Monocytes % (auto) 12.7 %; Neutrophils # (auto) 6.28 K/uL (1.4-6.5); Neutrophils % (auto) 73.3 %; Platelet Count 158 K/uL (130-400); RDW Coefficient of Variation 13.7 % (11.5-14.5); RDW Standard Deviation 47.6 fL (36.4-46.3); Red Blood Count 4.03 M/uL (4.2-5.4); White Blood Count 8.58 K/uL (4.8-10.8)
[2019-08-18 06:44] LABS: BUN Creatinine Ratio 17.5 (10-20); Calcium 7.9 mg/dl (8.5-10.1); Creatinine Clr Calc Pharmacy 43.2 ml/min; Est GFR (African American) 68.6; Est GFR (Non-African American) 59.2; Potassium 4.1 mmol/L (3.5-5.1)
[2019-08-18] MEDS: LIDOCAINE 5% 1 PATCH TD SCH (09:11)
[2019-08-18] MEDS ORDERED: AMLODIPINE BESYLATE 5 MG TAB PO ONE (12:29)
--- NOTE | 2019-08-18 13:09 | Cardiology Consultation ---
Date of Consultation August 18, 2019 Assessment & Plan (1) Syncope: Patient presents with her second syncopal episode in about a 3-month interval. Her blood pressure is uncharacteristically high for her, it does appear to be trending down however compared to yesterday. At present, I recommend a carotid duplex, this is likely low yield, but I think it would be helpful to exclude significant obstruction. There is no arrhythmia noted on telemetry thus far, however her symptoms are certainly concerning for arrhythmia. I counseled her that she should abstain from driving pending further evaluation of her loss of consciousness episodes, typically for 6 months unless we find an etiology. I am going to arrange for a 2-week cardiac heart monitor to be worn as an outpatient. If this is unrevealing, I would have a low threshold for consideration of EP consultation to consider placing a LINQ implantable loop recorder. Pt stable for discharge from my standpoint if carotid duplex is OK. 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 She and her moved to [place] a few years ago and have family including grandchildren in the area. She is blessed with good health, and is not on any routine prescription medications. Yesterday, she woke up, and reports that she was in her normal state of health. She got up to get some cereal for breakfast, and all of a sudden felt "clammy "and lost consciousness falling backwards, and hitting her back, right shoulder, and head on the oven door. Her heard the noise of her falling, and by the time he came to the kitchen, she was standing by the kitchen sink using the kitchen counter for balance. He subsequently brought her to the emergency department. Work-up on arrival was notable for significant hypertension with initial blood pressure of 196/108. She received 1 dose of labetalol, and her blood pressures have trended down in the interim time. She denies any chest discomfort or shortness of breath. She describes herself as being physically active at baseline, she participates in a [employer] class without any change in activity tolerance. She notes a similar episode of loss of consciousness during a muslim service in June,. On telemetry, sinus rhythm in the range of 60 to 90 bpm has been present, without any significant tachycardia or bradycardia and without any other arrhythmia. Allergies Allergy/AdvReac Type Severity Reaction Status Date / Time Sulfa (Sulfonamide Allergy Severe Hives Verified 08/16/19 18:41 Antibiotics) Home Medications Home Medications Medication Instructions Recorded Confirmed Type ascorbic acid (vitamin C) 500 mg PO QAM #0 03/16/15 08/16/19 History Aqua-E Concentrate 0 unit PO QAM #0 03/29/18 08/16/19 History calcium carbonate-vitamin D3 1 tab PO QAM #0 03/29/18 08/16/19 History [Calcium 500 + D] cholecalciferol (vitamin D3) 1,000 unit PO QAM #0 03/29/18 08/16/19 History Patient History Medical History Breast abscess LEFT BREAST, STAPH INFECTION DRAINED UNDER ANESTHESIA Surgical History History of colonoscopy 10 YR AGO S/P cataract extraction and insertion of intraocular lens Right cataract 04/24/18 Family History Brother Coronary heart disease CABG Social History Preferred Language: Ukrainian Communication Ability: Effective Gift Manager Required: No Beliefs That Will Affect Care: None Current Living Situation: Spouse Current Living Situation Comment: 55+ [facility] Other Information That Helps Us Care for You: No Feels Safe at Home: Yes Safety Concerns: Feels Safe At This Time Smoking Status: Never smoker Do You Dip or Chew Tobacco: No ; Second Hand Exposure: No ; Tobacco Cessation Education Requested by Patient: No Hx Alcohol Use: No Hx Substance Use: No Review of Systems Review of Systems: All systems reviewed & are unremarkable except as noted in HPI & below Physical Exam Physical Exam: Temp Pulse Resp BP Pulse Ox 36.8 C 92 H 22 161/85 H 96 08/18/19 11:44 08/18/19 11:44 08/18/19 11:44 08/18/19 11:44 08/18/19 11:47 Constitutional: WD/WN, vitals as above Neck: trachea midline, no thyromegaly Respiratory: normal respiratory effort, lungs clear to auscultation Cardiovascular: RRR, no murmur, no edema Gastrointestinal (Abdomen): normal bowel sounds, soft, nontender, no hepatosplenomegaly Neurologic: PERRL, EOMI, accommodation nl, no face palsy, no dysarthria Psychiatric: A+Ox3, euthymic affect Results & Data Vital Signs (Past 12 Hours) Vital Signs Temp Pulse Resp BP Pulse Ox 08/18/19 11:47 96 08/18/19 11:44 36.8 C 92 H 22 161/85 H 98 08/18/19 07:27 37.0 C 77 18 113/52 L 94 08/18/19 03:31 38.8 C H 91 H 16 146/74 H 91 Laboratory Results CBC 08/18/19 Range/Units 05:29 WBC 8.58 (4.8-10.8) K/uL RBC 4.03 L (4.2-5.4) M/uL Hgb 12.6 (12.0-16.0) g/dL Hct 38.0 (37-47) % Plt Count 158 (130-400) K/uL Neut # (Auto) 6.28 (1.4-6.5) K/uL Lymph # (Auto) 1.05 L (1.2-3.4) K/uL [place] # (Auto) 1.09 H (0.11-0.59) K/uL Eos # (Auto) 0.12 (0-0.5) K/uL Baso # (Auto) 0.02 (0-0.2) K/uL Comprehensive Metabolic Panel 08/18/19 Range/Units 05:29 Sodium 132 L (136-145) mmol/L Potassium 4.1 (3.5-5.1) mmol/L Chloride 101 (98-107) mmol/L Carbon Dioxide 27 (21-32) mmol/L BUN 16 (7-18) mg/dl Creatinine 0.91 (0.6-1.2) mg/dl Glucose 114 H (70-99) mg/dl Calcium 7.9 L (8.5-10.1) mg/dl Intake and Output 08/17/19 08/18/19 08/18/19 22:59 06:59 14:59 Intake Total 1399 Balance 1399 Intake: IV 1000 / 1000 Nss 1000ML 1,000 ml @ 60 mls/hr 1000 / 1000 IV .[id number] ONE Rx#:[id number] Oral 400 / 795 Other: Weight 56.4 kg (1) Syncope Syncope type: unspecified Qualified Code(s): R55 - Syncope and collapse
--- NOTE | 2019-08-18 16:59 | Ultrasound Report ---
US carotid doppler BI HISTORY: Mental status change syncope COMPARISON: None. TECHNIQUE: Real-time, grayscale, and color Doppler sonography of the carotid arteries was performed. Imaging reviewed in the transverse and longitudinal planes. All measurements were calculated based on NASCET criteria. FINDINGS: Antegrade flow is seen in the bilateral vertebral arteries. The brachial pressures are hemodynamically similar. Mild plaque formation bilaterally The peak systolic velocity within the right ICA is 57. The right systolic ratio is 0.5. The peak systolic velocity within the left ICA is 110. The left systolic ratio is 0.98. IMPRESSION: No hemodynamically significant stenosis seen within the carotid arteries. Mild bilateral plaque forma tion ACT 112: Negative or not required by law. The above report was generated using voice recognition software. It may contain grammatical, syntax or spelling errors. Electronically signed by: Zachary Salguero M.D. 08/18/2019 4:57 PM
--- NOTE | 2019-08-18 17:45 | Hospitalist Progress Note ---
Date of Service August 18, 2019 Assessment & Plan (1) Syncope: SYNCOPAL EPISODE, status post fall 2 episodes in a 3-month period Patient's symptoms and presentation may represent underlying arrhythmia During observation in the hospital, telemetry monitoring did not reveal any arrhythmia No recurrence of presyncope or syncopal episodes Echocardiogram: No significant valvular abnormalities, mild concentric LVH, left ventricular wall motion is normal, EF 55 to 60% Carotid Doppler: No significant stenosis Gear Machine Operator consulted, Dr. Bryson, recommend 2-week cardiac monitoring to be arranged by the cardiology clinic If unrevealing, patient will be referred to faith doctor for implantable a&p technician Advised not to drive for at least 6 months or until work-up for syncope has been completed Orthostasis ruled out CVA ruled out: CT head negative Acute coronary syndrome ruled out: EKG no signs of ischemia Unlikely seizure episodes Hypertensive urgency secondary to posttraumatic back pain, right shoulder pain BP systolic 190s during admission, systolic 150s during observation in telemetry unit given Labetalol IV one dose at the ER, BP improved Will start amlodipine 2.5 mg p.o. daily Continue to monitor as an outpatient, and titrate amlodipine accordingly Mild Thoracic Compression Fracture T 3, Disch Herniation s/p Fall Thoracic spine CT: 1. Mild compression deformities of T3 with slight posterior retropulsion of the inferior endplate. 2. Mild degenerative disc changes throughout the remainder of the thoracic region. No acute fracture on shoulder x-ray, lumbar spine CT scan Pain improving Continue to monitor as an outpatient Disposition Discharge to home Follow-up with primary care physician this week, patient to be called by schedule Zio patch placement as an outpatient Case and plan of care discussed with patient and her , daughter and son-in-law in detail at length All questions answered They are comfortable, understanding, agreeable with the plan of care Total time spent around 40 minutes Subjective Follow-up for syncope Seen resting in bed, comfortable, in good spirits, very pleasant States she feels fine overall, back to baseline No recurrence of syncope or presyncope Denies chest pain palpitations, shortness of breath, dizziness Ambulating the room with no problems Back pain improving, no neurologic symptoms Denies other symptoms States she is ready and would like to be discharged today Review of Systems Review of Systems: All systems reviewed & are unremarkable except as noted in HPI & below Physical Exam Physical Exam: General- oriented x 3, not in distress, speaks in sentences with no effort or accessory muscle use Eyes- anicteric Neck- no JVD Lungs- clear breath sounds BL Heart- normal rate, regular rhythm; no murmurs Abdomen- normal bowel sounds, nondistended, soft, tenderness Extremities- no pretibial edema, no calf tenderness Back-Lidoderm patch in place, no tenderness Neuro- alert, oriented x 3; no gross focal neurologic deficits Skin- warm & dry Results & Data Vital Signs (Past 12 Hours) Vital Signs Temp Pulse Resp BP Pulse Ox 08/18/19 15:13 36.9 C 86 18 138/81 95 08/18/19 11:47 96 08/18/19 11:44 36.8 C 92 H 22 161/85 H 98 08/18/19 07:27 37.0 C 77 18 113/52 L 94 (1) Syncope Syncope type: unspecified Qualified Code(s): R55 - Syncope and collapse
--- NOTE | 2019-08-18 18:27 | Discharge Summary ---
Date of Service August 18, 2019 Admission HPI Per Admitting Provider History obtained from patient, family, and records. Medical history significant for skin cancer status post surgery, osteoporosis. Patient's had dry cough symptoms for about 2 days, no fever, no chills. Yesterday morning, patient was getting ready to eat breakfast when she started feeling faint like she was going to fall down. Unwitnessed syncopal event. Patient found by who heard her fall down. Patient may have been out for about 2 minutes as per at the most. Patient denies chest pain, S OB prior to fall. No witnessed seizures, tongue biting. Prior episodes in the past which patient attributes to not drinking enough water. Upper back and right shoulder pain, right-sided headache upon waking up. Patient seen at PCPs office and directed to the ER. At the ER, SBP noted to be 190s. Labetalol given at the ER. 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 Admission Exam Per Admitting Provider GENERAL: Comfortable, pleasant, looks younger for stated age, no respiratory distress SKIN: Normal color, warm HEENT: Cylinder palpebral conjunctivae, no ptosis, dry buccal mucosa NECK : Supple, no tenderness CHEST : CTA, no tenderness HEART : RRR, no obvious murmurs BACK : Upper back tenderness ABDOMEN: Some distention, nontender EXTREMITIES : No LE swelling/tenderness, no other conspicuous deformities noted NEUROLOGIC : Coherent, no facial asymmetry, no other gross focality Principal Diagnosis Syncope Discharge Exam General- oriented x 3, not in distress, speaks in sentences with no effort or accessory muscle use Eyes- anicteric Neck- no JVD Lungs- clear breath sounds BL Heart- normal rate, regular rhythm; no murmurs Abdomen- normal bowel sounds, nondistended, soft, tenderness Extremities- no pretibial edema, no calf tenderness Back-Lidoderm patch in place, no tenderness Neuro- alert, oriented x 3; no gross focal neurologic deficits Skin- warm & dry Discharge Data Allergies Allergy/AdvReac Type Severity Reaction Status Date / Time Sulfa (Sulfonamide Allergy Severe Hives Verified 08/16/19 18:41 Antibiotics) Consultations 08/16/19 21:09 ED Decision to Admit Stat 08/17/19 02:35 Consult Case Management - Discharge Planning Routine 08/18/19 08:05 Consult Cardiology Routine Ordered Studies 08/16/19 18:34 CT head/brain wo con Stat Impression: No acute intracranial abnormality. Atrophy and microvascular ischemic changes. 08/17/19 00:31 CT lumbar spine wo con Urgent IMPRESSION: Significant degenerative disc change L5-S1. Otherwise negative study. CT thoracic spine wo con Urgent 1. Mild compression deformities of T3 with slight posterior retropulsion of the inferior endplate. 2. Mild degenerative disc changes throughout the remainder of the thoracic region. 08/18/19 13:00 US carotid doppler BI Urgent IMPRESSION: No hemodynamically significant stenosis seen within the carotid arteries. Mild bilateral plaque formation. Hospital Course (1) Syncope: SYNCOPAL EPISODE, status post fall 2 episodes in a 3-month period Patient's symptoms and presentation may represent underlying arrhythmia During observation in the hospital, telemetry monitoring did not reveal any arr hythmia No recurrence of presyncope or syncopal episodes Echocardiogram: No significant valvular abnormalities, mild concentric LVH, left ventricular wall motion is normal, EF 55 to 60% Carotid Doppler: No significant stenosis Asp Web Developer consulted, Dr. Bryson, recommend 2-week cardiac monitoring to be arranged by the cardiology clinic If unrevealing, patient will need to be referred to locomotive lubricating systems clerk for implantable monitoring and evaluation advisor Advised not to drive for at least 6 months or until work-up for syncope has been completed Orthostasis ruled out CVA ruled out: CT head negative Acute coronary syndrome ruled out: EKG no signs of ischemia Unlikely seizure episodes Hypertensive urgency secondary to posttraumatic back pain, right shoulder pain BP systolic 190s during admission, systolic 150s during observation in telemetry unit given Labetalol IV one dose at the ER, BP improved started amlodipine 2.5 mg p.o. daily, blood pressure improving Continue to monitor as an outpatient, and titrate amlodipine accordingly Mild Thoracic Compression Fracture T 3, Disch Herniation s/p Fall Thoracic spine CT: 1. Mild compression deformities of T3 with slight posterior retropulsion of the inferior endplate. 2. Mild degenerative disc changes throughout the remainder of the thoracic region. No acute fracture on shoulder x-ray, lumbar spine CT scan Pain improving Continue to monitor as an outpatient Disposition Discharge to home Follow-up with primary care physician this week, patient to be called by scheduling department Zio patch placement as an outpatient care of cardiology clinic Case and plan of care discussed with patient and her in detail and at length All questions answered They are comfortable, understanding, agreeable with the plan of care Total Time Total Time Spent Total Time Spent (In Minutes): 45 minutes Discharge Plan Discharge Items Patient Disposition: Home - Self-Care Reason For Visit: HTN URGENCY SYNCOPE Discharge Diagnosis: SYNCOPE Activity: As commented below Activity Comment: RESUME ACTIVITY GRADUALLY TOLERATED, NO HEAVY EXERTION Lifting: Wait until after follow-up appointment Exercise/Sports: Wait until after follow-up appointment Driving/Machine Use: No driving until evaluation for passing out has been completed, and cleared by primary care physician Non-emergency contact: Primary Care Provider Call non-emergency contact if: you have any medication questions, your symptoms worsen, your pain is not controlled, your pain is worsening, your pain is unusual for you, your pain is concerning for you and you have a fever Follow-up/Referrals: Emily Mcdermott DO [Primary Care Provider] - Diet: Heart Healthy Addtl Attending Provider Instructions: Your new medication is for blood pressure control: Amlodipine 2.5 mg by mouth daily. Always stay well-hydrated. Do not stand up too quickly. No driving for at least 6 months, until evaluation for loss of consciousness has been completed and cleared by primary care physician. Call primary care physician or return to the ER immediately if with recurrence of symptoms, worsening of back pain. Follow-up with primary care physician this coming week. The clinic will be calling you for an appointment. Pending Studies at Discharge: Yes Studies:: Heart monitor placement by cardiology clinic. The clinic will be montserrat ng you for details. Stand-Alone Forms: My [facility] [employer], Smoking Cessation Medications and DC Order Prescriptions: New amlodipine 2.5 mg tablet 2.5 mg PO DAILY Qty: 30 RF: 2 Continued ascorbic acid (vitamin C) 500 mg Capsule, Extended Release 500 mg PO QAM Qty: 0 RF: 0 cholecalciferol (vitamin D3) 1,000 unit Capsule 1,000 unit PO QAM Qty: 0 RF: 0 calcium carbonate-vitamin D3 [Calcium 500 + D] 500 mg(1,250mg) -200 unit Tablet 1 tab PO QAM Qty: 0 RF: 0 Aqua-E Concentrate 75 unit/mL Drops 0 unit PO QAM Qty: 0 RF: 0 Discharge Orders: Discharge Order (Routine); Ordered 08/18/19 Ordered By: Shukri Clements Admission Data Admit Date/Time: 08/17/19 00:35 Attending Provider: Shukri Clements Admit Provider: Mikie Noland Primary Care Provider: Emily Mcdermott Other Providers: Mikie Noland ; Lul Bryson Other Interventions: Discharge Summary Assessment (RN) Last Done: 08/18/19 18:10
== END 2019-08-18 18:32 | disposition home or self-care (01) ==
LOC: ED 16:30 → 2E 16:30

== ENCOUNTER 2024-07-20 08:19 | Inpatient (IN) ==
[2024-07-20 08:48] LABS: Basophils # (auto) 0.03 K/uL (0.00-0.20); Basophils % (auto) 0.6 %; Eosinophils # (auto) 0.13 K/uL (0.00-0.50); Eosinophils % (auto) 2.7 %; Hematocrit (blood only) 44.3 % (37.0-47.0); Hemoglobin 14.6 g/dl (12.0-16.0); Immature Granulocytes # (auto) 0.02 K/uL (0.01-0.20); Immature Granulocytes % (auto) 0.4 %; Lymphocytes # (auto) 1.14 K/uL (1.20-3.40); Lymphocytes % (auto) 23.3 %; Mean Corpuscular Hemoglobin 31.1 pg (25.0-34.0); Mean Corpuscular Volume 94.5 fL (80.0-100.0); Mean Platelet Volume 10.7 fL (9.4-12.4); Monocytes # (auto) 0.51 K/uL (0.11-0.59); Monocytes % (auto) 10.4 %; Neutrophils # (auto) 3.06 K/uL (1.40-6.50); Neutrophils % (auto) 62.6 %; Platelet Count 145 K/uL (130-400); RDW Coefficient of Variation 13.6 % (11.5-14.5); RDW Standard Deviation 47.4 fL (36.4-46.3); Red Blood Count 4.69 M/uL (4.20-5.40); White Blood Count 4.89 K/ul (4.8-10.8)
--- NOTE | 2024-07-20 08:57 | Emergency Department Note ---
Impression & Plan Chest pain, Hypertension, Leg weakness ED Provider Note Provider: Donnell Rea MD CHIEF COMPLAINT: Chest discomfort, leg twitching HISTORY OF PRESENT ILLNESS: Patient is a 88-year-old female past history of hypertension and hyponatremia presenting here today the ambulance from home. Patient states she was well yesterday without complaint or illness. States she got up around 6 AM and walked to the bathroom. On the way back to the bathroom developed pain to the right and left chest constant in nature. No syncope or falls. Denies discoordination on the way to the bed. No shortness of breath. No radiation of the pain to the abdomen jaw back or arms. No history of similar pain reported. No syncope. After getting back into bed did notice that her legs seem to be a little bit jumpy but not really having cramps. Maybe had this happen once before but she does not remember all details and this is not normal. No significant numbness or tingling reported. Called her daughter regarding this around 7:15 AM and ambulance was called. Patient reports maybe 6 out of 10 pain initially although pain is maybe 1 out of 10 right now. States that she was given 4 baby aspirin in the ambulance. Do not yet have breakfast this morning. No cardiac history reported for the patient. Noted to be hypertensive here however states that she was told that she does not need her blood pressure medicine anymore by her doctor. Not currently on antihypertensives. Did travel to the [facility] the beginning of June. Daughter who arrives states patient has had some memory issues but was however walking okay and not complaining of any pain yesterday evening when she dropped her off around 7:30 PM. PAST MEDICAL HISTORY: As noted above MEDICATIONS: Reviewed home medications with her and states she stopped her blood pressure medicine sometime ago as she was told she did not need SOCIAL HISTORY: Non-smoker, PHYSICAL EXAM: GENERAL: alert and oriented in no acute distress on stretcher Head: normocephalic and atraumatic EYES: No injection, discharge or icterus. EOMI. NECK: Trachea midline. ENT: Mucous membranes pink and moist. LUNGS: Airway patent. No retractions. Breath sounds clear with good air entry bilaterally. HEART: Regular rate and rhythm. No chest wall tenderness ABDOMEN: Soft and non-tender, without guarding or rebound. SKIN: Acyanotic, warm, dry, without rashes EXTREMITIES: Without swelling, tenderness or deformity NEUROLOGICAL: No aphasia. No facial droop or slurred speech. Normal strength and tone in the upper extremities. Maybe some mild weakness 3/5 in the left lower extremity. Intact strength in the right lower extremity. Sensation to gross touch normal in all extremities prickly lower extremities. EK bpm normal sinus rhythm. No PVC or PAC. No acute ST segment elevation or depression with a QTc of 444. CONTINUOUS CARDIAC MONITORING: was ordered and showed a heart rate of 70s to 80s bpm in normal sinus rhythm Patient's laboratory studies and imaging reviewed. Differential includes Cardiac ischemia, aortic dissection, pulmonary embolism, pneumothorax, pneumonia, pericarditis, myocarditis, esophageal rupture, GERD, cholecystitis, pancreatitis, musculoskeletal, electrolyte abnormality, DVT as well as other pathologies. IMPRESSION/MEDICAL DECISION MAKING: Patient with minimal discomfort now maybe 1 out of 10. Does not describe it necessarily as a sharp or pressure. No radiation. Benign abdomen. Lower suspicion for acute intra-abdominal pathology based on exam and history. EKG obtained without significant abnormality notable. Is hypertensive here. Reports that she was told she did not need her blood pressure medicine anymore. Reviewed last office note available from March 08 from the [facility]. Records at that time indicate that there were some concerns about memory. Does have some baseline kidney dysfunction creatinine of 1.1 then and [facility] 1.2. Do not see any clear documentation the patient versus to stop her antihypertensives. Do question with the documented concerns about memory if she is actually supposed to have stopped her amlodipine. Patient without evidence of significant swelling in the lower extremities on exam here. Patient is not describing cramping but a little bit of jumpiness of the legs. Not involving the arms. Doubt DVT based on exam. No travel over the last several weeks. Also not hypoxic or having significant shortness of breath and lower suspicion for PE. Not having severe tearing chest pain and doubt dissection. No other neurological symptoms. Doubt acute CVA or meningitis. Doubt seizure at this time. Will see if electrolytes are abnormal or signs of thyroid dysfunction. Troponin was sent and chest x-ray obtained in addition to basic labs and LFTs/lipase. No nausea or vomiting reported. Blood work obtained today and reassuring. No findings of significant anemia or leukocytosis with a normal platelet count today. Doubt hepatitis or pancreatitis based on history and labs. No significant electrolyte abnormality signs of acute renal dysfunction today. Troponin returns today at 17. No priors for comparison. 1 view chest x-ray per my interpretation without evidence of pneumothorax, pneumonia, cardiomegaly, or free air. No mediastinal widening noted. Testing here without obvious evidence of electrolyte abnormality or findings to indicate cause of some "jumpiness "and twitching occasionally at the lower extremities. Reviewed no other neurological deficit. Does seem to be fairly hypertensive. Blood work reassuring other than very slightly elevated troponin of 17 however no prior baseline unsure if this is her chronic level as it is still quite low. While here patient had to urinate. Was too weak to stand even with assistance. Straight cath performed for clear urine sent for UA. Again no report of any significant abdominal or back pain. Does have neurology appointment in August given some of the memory issues for further evaluation. Will obtain a head CT and angiogram to exclude an occult bleed or vascular abnormality. Seems atypical but cannot entirely exclude CVA. Again not giving other symptoms of back discomfort concern for cauda equina or spinal abscess/infection. Patient again not reporting any dizziness symptoms. Daughter reports she is noted recently increasing memory issues. Seems like the patient probably did get up and use the bathroom earlier but is quite weak now. Given the nonspecific nature, questionable last known well, and lack of focality do not believe the patient qualifies for any thrombolytics or stroke alert at this point. As were doing CT angiograms will complete a CT of the chest to exclude PE. Not again having back or abdominal pain and doubt aortic dissection. CTA of the head and neck and CT head per radiology report are reassuring without acute abnormalities notable. CT of the chest without evidence of PE questioning some bronchitis but no pneumonia findings. Some esophageal thickening is noted. Will give a dose of some Protonix. Discussed with patient and her daughter at bedside findings. Recommended given her age, poorly controlled hypertension, still slight chest discomfort with borderline troponin here of 17, and her ambulatory dysfunction we bring her in for further evaluation and care. Still need to further elucidate why her increased leg weakness has occurred. Question of the chest pain may have would be more esophageal in nature. DIAGNOSIS: Chest pain, hypertension, leg weakness DISPOSITION: Hospitalist will evaluate Patient was agreeable with this plan. Past Med/Surg History Problem List (Updated 07/20/24 @ 13:[address] PA-C) Stroke-like symptoms Leg weakness (Acute) Hypertension (Acute) Chest pain (Acute) Non-healing wound of left lower extremity (Acute) Syncope (Acute) Hypertensive urgency (Acute) Acute hyponatremia (Acute) Encounter for pre-operative examination Finger avulsion (Acute) Medical History (Updated 07/20/24 @ 13:[address] PA-C) Breast abscess LEFT BREAST, STAPH INFECTION DRAINED UNDER ANESTHESIA Surgical History S/P cataract extraction and insertion of intraocular lens Right cataract 04/24/18 History of colonoscopy 10 YR AGO Family History Brother Coronary heart disease CABG Social History Smoking Status: Never smoker Second Hand Exposure: No; Do You Dip or Chew Tobacco: No; Hx Alcohol Use: No Hx Substance Use: No Preferred Language: Georgian Communication Ability: Effective [employer] Required: No Beliefs That Will Affect Care: None Current Living Situation: Alone Current Living Situation Comment: 55+ COMMUNITY Feels Safe at Home: Yes Assistive Devices: None Allergies Allergies Allergy/AdvReac Type Severity Reaction Status Date / Time Sulfa (Sulfonamide Allergy Severe Hives Verified 10/10/22 10:00 Antibiotics) Home Meds Home Medications Medication Instructions Recorded Confirmed ascorbic acid (vitamin C) 500 mg 500 mg PO QAM ##0 03/16/15 07/20/24 capsule,extended release calcium 500 mg (as 1 tab PO QAM ##0 03/29/18 07/20/24 carbonate)-vitamin D3 5 mcg (200 unit) tablet (Calcium 500 + D) cholecalciferol (vitamin D3) 25 1,000 unit PO QAM ##0 03/29/18 07/20/24 mcg (1,000 unit) capsule amlodipine 2.5 mg tablet 2.5 mg PO UD 07/20/24 07/20/24 carboxymethylcellulose sodium 0.5 1 drp ophthalmic (eye) TID 07/20/24 07/20/24 % eye drops (Refresh Tears) Results & Data (ED) Vital Signs Vital Signs - 24 hr 07/20/24 08:19 07/20/24 08:24 07/20/24 08:32 Temperature 36.7 C Temperature Source Oral Pulse Rate 79 Respiratory Rate 19 Blood Pressure 177/104 H Blood Pressure Mean 128 Pulse Oximetry 94 95 96 Oxygen Delivery Method Room Air Room Air Room Air Sepsis Recent Fever Within 48 Hours No Sepsis New/Unexplained Change in Mental Status N/A Sepsis Action Taken by Nursing No Action Required 07/20/24 08:34 07/20/24 09:00 07/20/24 09:30 Temperature Temperature Source Pulse Rate 75 Respiratory Rate Blood Pressure 169/75 H 182/92 H Blood Pressure Mean 111 122 Pulse Oximetry Oxygen Delivery Method Sepsis Recent Fever Within 48 Hours Sepsis New/Unexplained Change in Mental Status Sepsis Action Taken by Nursing 07/20/24 09:30 07/20/24 09:33 07/20/24 09:38 Temperature Temperature Source Pulse Rate 73 Respiratory Rate 22 Blood Pressure 182/92 H 167/89 H Blood Pressure Mean 122 122 Pulse Oximetry Oxygen Delivery Method Sepsis Recent Fever Within 48 Hours Sepsis New/Unexplained Change in Mental Status Sepsis Action Taken by Nursing 07/20/24 09:42 07/20/24 09:51 07/20/24 09:54 Temperature Temperature Source Pulse Rate 80 75 76 Respiratory Rate 17 13 24 Blood Pressure Blood Pressure Mean Pulse Oximetry Oxygen Delivery Method Sepsis Recent Fever Within 48 Hours Sepsis New/Unexplained Change in Mental Status Sepsis Action Taken by Nursing 07/20/24 10:00 07/20/24 10:06 Temperature Temperature Source Pulse Rate 76 Respiratory Rate 24 Blood Pressure 173/94 H Blood Pressure Mean 111 Pulse Oximetry 95 Oxygen Delivery Method Sepsis Recent Fever Within 48 Hours Sepsis New/Unexplained Change in Mental Status Sepsis Action Taken by Nursing Laboratory Data 07/20/24 08:26 07/20/24 08:26 Lab Results 07/20/24 07/20/24 Range/Units 08:26 09:39 WBC 4.89 (4.8-10.8) K/ul RBC 4.69 (4.20-5.40) M/uL Hgb 14.6 (12.0-16.0) g/dl Hct 44.3 (37.0-47.0) % MCV 94.5 (80.0-100.0) fL MCH 31.1 (25.0-34.0) pg MCHC 33.0 (32.0-36.0) g/dL RDW Std Deviation 47.4 H (36.4-46.3) fL RDW Coeff of Clarence 13.6 (11.5-14.5) % Plt Count 145 (130-400) K/uL MPV 10.7 (9.4-12.4) fL Immature Gran % (Auto) 0.4 % Neut % (Auto) 62.6 % Lymph % (Auto) 23.3 % [place] % (Auto) 10.4 % Eos % (Auto) 2.7 % Baso % (Auto) 0.6 % Neut # (Auto) 3.06 (1.40-6.50) K/uL Lymph # (Auto) 1.14 L (1.20-3.40) K/uL [place] # (Auto) 0.51 (0.11-0.59) K/uL Eos # (Auto) 0.13 (0.00-0.50) K/uL Baso # (Auto) 0.03 (0.00-0.20) K/uL Immature Gran # (Auto) 0.02 (0.01-0.20) K/uL PT 10.0 (9.0-12.0) Seconds INR 0.9 (0.9-1.1) Sodium 140 (136-145) mmol/L Potassium 4.0 (3.5-5.1) mmol/L Chloride 106 (98-107) mmol/L Carbon Dioxide 28 (21-32) mmol/L Anion Gap 6 (3-11) BUN 26 H (6-23) mg/dl Creatinine 0.93 (0.6-1.2) mg/dl Est Cr Clr Drug Dosing 36.7 ml/min eGFR 59.86 BUN/Creatinine Ratio 28.0 H (10-20) Glucose 112 H (70-99(Fasting)) mg/dl Calcium 8.9 (8.6-10.3) mg/dl Magnesium 2.2 (1.7-2.4) mg/dl Total Bilirubin 0.5 (0.2-1.0) mg/dl AST 20 (13-39) U/L ALT 20 (7-52) U/L Alkaline Phosphatase 72 (34-104) U/L Troponin I High Sens 17.2 H (0-14) pg/ml Total Protein 7.0 (6.0-8.3) gm/dl Albumin 3.8 (3.4-5.0) gm/dl Globulin 3.2 (2.5-4.0) gm/dl Albumin/Globulin Ratio 1.2 (0.9-2) Lipase 27 (11-82) U/L TSH 1.122 (0.300-4.500) uIu/ml Urine Color Yellow Urine Appearance Clear (Clear) Urine pH 7.5 (4.5-7.5) Ur Specific [place] 1.009 (1.000-1.030) Urine Protein Negative (Negative) Urine Glucose (UA) Negative (Negative) Urine Ketones Negative (Negative) Urine Blood Negative (Negative) Urine Nitrite Negative (Negative) Urine Bilirubin Negative (Negative) Urine Urobilinogen Negative (Negative) Ur Leukocyte Esterase Negative (Negative) Administered Medications Discontinued Medications Pantoprazole Sodium (Protonix) 40 mg in 10 mls @ 5 mls/min IV NOW ONE Stop: 07/20/24 11:15 Last Admin: 07/20/24 12:41 Dose: 5 mls/min Documented By: GLORIA Ioversol (Optiray 320 125ml) 112 ml IV ONCE ONE Stop: 07/20/24 10:16 Last Admin: 07/20/24 10:16 Dose: 112 ml Documented By: CAMRON Imaging Data Radiologist's Impression: Chest X-Ray 07/20/24 08:29 XR chest 1V portable HISTORY: 88 years-old Female Chest pain, nonspecific COMPARISON: CTA chest of same day TECHNIQUE: AP view of the chest FINDINGS: Cardiac silhouette is enlarged. Ill-defined interstitial coarsening corresponds with the groundglass densities seen on the same day CTA chest. No pneumothorax, pleural effusion or overt pulmonary edema. IMPRESSION: 1. No airspace consolidation typical for pneumonia. 2. Please refer to the CTA chest of same day for additional findings. ACT 112: Negative or not required by law. The above report was generated using voice recognition software. It may contain grammatical, syntax or spelling errors. Electronically signed by: Vernon Srinivasan M.D. 07/20/2024 10:38 AM Chest CTA 07/20/24 10:03 CT angio chest PE protocol HISTORY: 88 years-old Female with PE, CP, leg weakness. Acute chest pain with shortness of breath TECHNIQUE: Multiple CTA images of the chest were obtained after the intravenous administration of 112 ml Optiray. Coronal and sagittal MIPS were obtained from the axial data set and were submitted for review. All measurements were obtained according to NASCET criteria. A dose lowering technique was utilized adhering to the principles of ALARA. COMPARISON: CT thoracic spine 08/17/2019 FINDINGS: CTA: Moderate cardiomegaly. No pericardial effusion. There is prominent atherosclerosis of the descending and imaged upper abdominal aorta. No thoracic aortic aneurysm or dissection. No pulmonary emboli. CT CHEST: Unremarkable thyroid. Calcified mediastinal and hilar lymph nodes. There is circumferential wall thickening noted throughout the majority of the esophagus. There is no pneumothorax, pleural effusion or pulmonary edema. Mild biapical pleural-parenchymal scarring. Ground glass densities with intermixed mosaic attenuation. Areas of mucous plugging are noted within the lung bases. Bronchial wall thickening. No suspicious pulmonary nodules or masses. 4 mm subpleural solid nodule within the lateral segment right middle lobe on image 65 is of low clinical suspicion. Calcified granulomata spleen and liver. No acute fracture. Healed chronic lateral left rib fractures. IMPRESSION: 1. No pulmonary emboli. 2. Findings suggestive of bronchitis bronchitis with mucus plugging, bilateral atelectasis and air trapping. 3. No pleural effusion or airspace consolidation typical for pneumonia. 4. Prior granulomatous disease. 5. Nonspecific diffuse esophageal wall thickening suspicious for esophagitis. ACT 112: Negative or not required by law. The above report was generated using voice recognition software. It may contain grammatical, syntax or spelling errors. Electronically signed by: Vernon Srinivasan M.D. 07/20/2024 11:[address] 07/20/24 10:03 CT angio head w con, CT head/brain wo con, CT angio neck with con CLINICAL HISTORY: 88 years-old Female with leg weakness. Acute stroke like symptoms with lower extremity muscle spasms and hypertension COMPARISON STUDY: CT head 08/16/2019, CT thoracic spine 08/17/2019. TECHNIQUE: Unenhanced axial CT scan of the brain is performed. Subsequently, following the IV administration of 112 cc of Optiray, CT angiogram of the head and was performed. Images are reviewed in the axial, sagittal, and coronal planes. 3-D MIPS images are created and assessed. IV contrast was administered without complication. All measurements were obtained according to NASCET criteria. A dose lowering technique was utilized adhering to the principles of ALARA. CT DOSE: 1387.1 mGy.cm FINDINGS: CT BRAIN: There is no acute intracranial hemorrhage, midline shift, hydrocephalus, intracranial mass, territorial ischemia or abnormal extra-axial collections. No abnormal intra-axial or extra-axial enhancement. Involutional changes with chronic microvascular ischemic disease. Mastoid air cells and middle ear cavities are clear. No calvarial fracture. Paranasal sinuses are clear. Benign- appearing 10 mm calcified lesion of the superior left frontal scalp on image [address] ANGIOGRAM OF THE HEAD AND NECK: Atherosclerosis of the thoracic aortic arch. The imaged pulmonary arteries unremarkable. Common and internal carotid arteries are patent. Atherosclerosis of the supraclinoid segment right ICA on image 109 causes moderate stenosis. Atherosclerosis of the left greater than right carotid bulbs and proximal internal carotid arteries. Dominant right vertebral artery. The vertebral arteries are patent bilaterally. The bilateral anterior and middle cerebral arteries are also patent. Moderate multifocal stenoses throughout the left posterior cerebral artery. No aneurysm, dissection or arterial occlusion identified. Lung apices are clear without pneumothorax. Biapical pleural parenchymal scarring. Unremarkable soft tissues. Moderate chronic T3 compression deformity with progressive vertebral body height loss. Degenerative changes of the spine. Mild nonspecific proximal esophageal wall thickening. IMPRESSION: 1. No acute intracranial abnormality. 2. Unremarkable CTA of the head and neck. 3. Nonspecific esophageal wall thickening. Correlate clinically to exclude esophagitis. ACT 112: Negative or not required by law. The above report was generated using voice recognition software. It may contain grammatical, syntax or spelling errors. Electronically signed by: Vernon Srinivasan M.D. 07/20/2024 11:03 AM Head CTA 07/20/24 10:03 CT angio head w con, CT head/brain wo con, CT angio neck with con CLINICAL HISTORY: 88 years-old Female with leg weakness. Acute stroke like symptoms with lower extremity muscle spasms and hypertension COMPARISON STUDY: CT head 08/16/2019, CT thoracic spine 08/17/2019. TECHNIQUE: Unenhanced axial CT scan of the brain is performed. Subsequently, following the IV administration of 112 cc of Optiray, CT angiogram of the head and was performed. Images are reviewed in the axial, sagittal, and coronal planes. 3-D MIPS images are created and assessed. IV contrast was administered without complication. All measurements were obtained according to NASCET criteria. A dose lowering technique was utilized adhering to the principles of ALARA. CT DOSE: 1387.1 mGy.cm FINDINGS: CT BRAIN: There is no acute intracranial hemorrhage, midline shift, hydrocephalus, intracranial mass, territorial ischemia or abnormal extra-axial collections. No abnormal intra-axial or extra-axial enhancement. Involutional changes with chronic microvascular ischemic disease. Mastoid air cells and middle ear cavities are clear. No calvarial fracture. Paranasal sinuses are clear. Benign- appearing 10 mm calcified lesion of the superior left frontal scalp on image [address] ANGIOGRAM OF THE HEAD AND NECK: Atherosclerosis of the thoracic aortic arch. The imaged pulmonary arteries unremarkable. Common and internal carotid arteries are patent. Atherosclerosis of the supraclinoid segment right ICA on image 109 causes moderate stenosis. Atherosclerosis of the left greater than right carotid bulbs and proximal internal carotid arteries. Dominant right vertebral artery. The vertebral arteries are patent bilaterally. The bilateral anterior and middle cerebral arteries are also patent. Moderate multifocal stenoses throughout the left posterior cerebral artery. No aneurysm, dissection or arterial occlusion identified. Lung apices are clear without pneumothorax. Biapical pleural parenchymal scarring. Unremarkable soft tissues. Moderate chronic T3 compression deformity with progressive vertebral body height loss. Degenerative changes of the spine. Mild nonspecific proximal esophageal wall thickening. IMPRESSION: 1. No acute intracranial abnormality. 2. Unremarkable CTA of the head and neck. 3. Nonspecific esophageal wall thickening. Correlate clinically to exclude esophagitis. ACT 112: Negative or not required by law. The above report was generated using voice recognition software. It may contain grammatical, syntax or spelling errors. Electronically signed by: Vernon Srinivasan M.D. 07/20/2024 11:03 AM Neck CTA 07/20/24 10:03 CT angio head w con, CT head/brain wo con, CT angio neck with con CLINICAL HISTORY: 88 years-old Female with leg weakness. Acute stroke like symptoms with lower extremity muscle spasms and hypertension COMPARISON STUDY: CT head 08/16/2019, CT thoracic spine 08/17/2019. TECHNIQUE: Unenhanced axial CT scan of the brain is performed. Subsequently, following the IV administration of 112 cc of Optiray, CT angiogram of the head and was performed. Images are reviewed in the axial, sagittal, and coronal planes. 3-D MIPS images are created and assessed. IV contrast was administered without complication. All measurements were obtained according to NASCET criteria. A dose lowering technique was utilized adhering to the principles of ALARA. CT DOSE: 1387.1 mGy.cm FINDINGS: CT BRAIN: There is no acute intracranial hemorrhage, midline shift, hydrocephalus, intracranial mass, territorial ischemia or abnormal extra-axial collections. No abnormal intra-axial or extra-axial enhancement. Involutional changes with chronic microvascular ischemic disease. Mastoid air cells and middle ear cavities are clear. No calvarial fracture. Paranasal sinuses are clear. Benign- appearing 10 mm calcified lesion of the superior left frontal scalp on image [address] ANGIOGRAM OF THE HEAD AND NECK: Atherosclerosis of the thoracic aortic arch. The imaged pulmonary arteries unremarkable. Common and internal carotid arteries are patent. Atherosclerosis of the supraclinoid segment right ICA on image 109 causes moderate stenosis. Atherosclerosis of the left greater than right carotid bulbs and proximal internal carotid arteries. Dominant right vertebral artery. The vertebral arteries are patent bilaterally. The bilateral anterior and middle cerebral arteries are also patent. Moderate multifocal stenoses throughout the left posterior cerebral artery. No aneurysm, dissection or arterial occlusion identified. Lung apices are clear without pneumothorax. Biapical pleural parenchymal scarring. Unremarkable soft tissues. Moderate chronic T3 compression deformity with progressive vertebral body height loss. Degenerative changes of the spine. Mild nonspecific proximal esophageal wall thickening. IMPRESSION: 1. No acute intracranial abnormality. 2. Unremarkable CTA of the head and neck. 3. Nonspecific esophageal wall thickening. Correlate clinically to exclude esophagitis. ACT 112: Negative or not required by law. The above report was generated using voice recognition software. It may contain grammatical, syntax or spelling errors. Electronically signed by: Vernon Srinivasan M.D. 07/20/2024 11:03 AM Discharge Plan Visit Data Chief Complaint: Chest Pain Stated Complaint: CHEST PAIN, UNSTEADY ON FEET ED Provider: Donnell Rea Discharge Problem: Chest pain, Hypertension, Leg weakness Patient Disposition: Admitted As Inpatient Discharge Instructions Interventions: ED Discharge Assessment Last Done: 07/20/24 14:45 Discharge Problem: Chest pain Qualifiers: Chest pain type: unspecified Qualified Code(s): R07.9 - Chest pain, unspecified Hypertension Qualifiers: Hypertension type: primary hypertension Qualified Code(s): I10 - Essential (primary) hypertension
[2024-07-20 09:01] LABS: Albumin Globulin Ratio 1.2 (0.9-2); Albumin Level 3.8 gm/dl (3.4-5.0); Bilirubin,Total 0.5 mg/dl (0.2-1.0); Calcium 8.9 mg/dl (8.6-10.3); Creatinine Clr Calc Pharmacy 36.7 ml/min; Globulin 3.2 gm/dl (2.5-4.0); Magnesium 2.2 mg/dl (1.7-2.4)
[2024-07-20 09:07] LABS: Troponin I High Sensitivity 17.2 pg/ml (0-14)
[2024-07-20 09:16] LABS: INR 0.9 (0.9-1.1); Thyroid Stimulating Hormone 1.122 uIu/ml (0.300-4.500)
[2024-07-20 10:14] LABS: Appearance Urine Clear (Clear); Bilirubin Urine Negative (Negative); Blood Urine Negative (Negative); Color Urine Yellow; Glucose Urine UA Negative (Negative); Ketones Urine Negative (Negative); Leukocyte Esterase Urine Negative (Negative); Nitrite Urine Negative (Negative); Protein Urine Negative (Negative); Specific Gravity Urine 1.009 (1.000-1.030); Urobilinogen Urine Negative (Negative); pH Urine 7.5 (4.5-7.5)
[2024-07-20] MEDS: OPTIRAY 320 125ml IV ONE (10:16)
--- NOTE | 2024-07-20 10:39 | XRay Report ---
XR chest 1V portable HISTORY: 88 years-old Female Chest pain, nonspecific COMPARISON: CTA chest of same day TECHNIQUE: AP view of the chest FINDINGS: Cardiac silhouette is enlarged. Ill-defined interstitial coarsening corresponds with the groundglass densities seen on the same day CTA chest. No pneumothorax, pleural effusion or overt pulmonary edema. IMPRESSION: 1. No airspace consolidation typical for pneumonia. 2. Please refer to the CTA chest of same day for additional findings. ACT 112: Negative or not required by law. The above report was generated using voice recognition software. It may contain grammatical, syntax o r spelling errors. Electronically signed by: Vernon Srinivasan M.D. 07/20/2024 10:38 AM
--- NOTE | 2024-07-20 11:06 | CT Scan Report ---
CT angio head w con, CT head/brain wo con, CT angio neck with con CLINICAL HISTORY: 88 years-old Female with leg weakness. Acute stroke like symptoms with lower ext remity muscle spasms and hypertension COMPARISON STUDY: CT head 08/16/2019, CT thoracic spine 08/17/2019. TECHNIQUE: Unenhanced axial CT scan of the brain is performed. Subsequently, following the IV adminis tration of 112 cc of Optiray, CT angiogram of the head and was performed. Images are reviewed in the axial, sagittal, and coronal planes. 3-D MIPS images are created and assessed. IV contrast was admini stered without complication. All measurements were obtained according to NASCET criteria. A dose lowe ring technique was utilized adhering to the principles of ALARA. CT DOSE: 1387.1 mGy.cm FINDINGS: CT BRAIN: There is no acute intracranial hemorrhage, midline shift, hydrocephalus, intracranial mass, territori al ischemia or abnormal extra-axial collections. No abnormal intra-axial or extra-axial enhancement. Involutional changes with chronic microvascular ischemic disease. Mastoid air cells and middle ear ca vities are clear. No calvarial fracture. Paranasal sinuses are clear. Benign-appearing 10 mm calcifie d lesion of the superior left frontal scalp on image [address] ANGIOGRAM OF THE HEAD AND NECK: Atherosclerosis of the thoracic aortic arch. The imaged pulmonary arteries unremarkable. Common and i nternal carotid arteries are patent. Atherosclerosis of the supraclinoid segment right ICA on image 1 09 causes moderate stenosis. Atherosclerosis of the left greater than right carotid bulbs and proxima l internal carotid arteries. Dominant right vertebral artery. The vertebral arteries are patent bilat erally. The bilateral anterior and middle cerebral arteries are also patent. Moderate multifocal sten oses throughout the left posterior cerebral artery. No aneurysm, dissection or arterial occlusion lien ntified. Lung apices are clear without pneumothorax. Biapical pleural parenchymal scarring. Unremarkable soft tissues. Moderate chronic T3 compression deformity with progressive vertebral body height loss. Degen erative changes of the spine. Mild nonspecific proximal esophageal wall thickening. IMPRESSION: 1. No acute intracranial abnormality. 2. Unremarkable CTA of the head and neck. 3. Nonspecific esophageal wall thickening. Correlate clinically to exclude esophagitis. ACT 112: Negative or not required by law. The above report was generated using voice recognition software. It may contain grammatical, syntax o r spelling errors. Electronically signed by: Vernon Srinivasan M.D. 07/20/2024 11:03 AM
--- NOTE | 2024-07-20 11:12 | CT Scan Report ---
CT angio chest PE protocol HISTORY: 88 years-old Female with PE, CP, leg weakness. Acute chest pain with shortness of breath TECHNIQUE: Multiple CTA images of the chest were obtained after the intravenous administration of 112 ml Optiray. Coronal and sagittal MIPS were obtained from the axial data set and were submitted for review. All measurements were obtained according to NASCET criteria. A dose lowering technique was u tilized adhering to the principles of ALARA. COMPARISON: CT thoracic spine 08/17/2019 FINDINGS: CTA: Moderate cardiomegaly. No pericardial effusion. There is prominent atherosclerosis of the descending and imaged upper abdominal aorta. No thoracic aortic aneurysm or dissection. No pulmonary emboli. CT CHEST: Unremarkable thyroid. Calcified mediastinal and hilar lymph nodes. There is circumferential wall thic kening noted throughout the majority of the esophagus. There is no pneumothorax, pleural effusion or pulmonary edema. Mild biapical pleural-parenchymal scarring. Ground glass densities with intermixed m osaic attenuation. Areas of mucous plugging are noted within the lung bases. Bronchial wall thickenin g. No suspicious pulmonary nodules or masses. 4 mm subpleural solid nodule within the lateral segment right middle lobe on image 65 is of low clinical suspicion. Calcified granulomata spleen and liver. No acute fracture. Healed chronic lateral left rib fractures. IMPRESSION: 1. No pulmonary emboli. 2. Findings suggestive of bronchitis bronchitis with mucus plugging, bilateral atelectasis and air tr apping. 3. No pleural effusion or airspace consolidation typical for pneumonia. 4. Prior granulomatous disease. 5. Nonspecific diffuse esophageal wall thickening suspicious for esophagitis. ACT 112: Negative or not required by law. The above report was generated using voice recognition software. It may contain grammatical, syntax o r spelling errors. Electronically signed by: Vernon Srinivasan M.D. 07/20/2024 11:10 AM
--- NOTE | 2024-07-20 11:40 | History & Physical Report ---
Date of Service July 20, 2024 Assessment & Plan (1) Stroke-like symptoms: (2) Leg weakness: (3) Hypertension: (4) Chest pain: Plan This is an 88-year-old female with PMH of hypertension, CKD 3, prediabetes, memory changes without formal dementia diagnosis and other medical problems listed below who presents from home after episode of chest pain earlier today. LLE weakness L>R, noted since arrival and unclear last known well given patient lives alone with memory impairment (estimates 6AM today) CT head, CTA head/neck without acute deficits Non-compliant with amlodipine for past 6 weeks after running out No known CVA hx but has formal eval with neuro in Aug for dementia Given aspirin en route Plavix 75mg x 1 now, start statin Brain MRI, echo with bubble study, neuro consulted PT/OT/speech evals Neuro checks, fall precautions Fasting lipid panel, a1c in AM HTN Non-compliant with amlodipine for past 6 weeks after running out Continue to hold amlodipine 2.5mg for now to allow for permissive HTN Chest pain Episode this AM around 6AM, has resolved Received aspirin en route Continuing aspirin, statin as above EKG without acute changes HS trop 17.2 Trend troponin, telemetry, echo as above Esophagitis Seen on CTA chest - given 40mg IV protonix in ED Asymptomatic Dysphagia screen as above, speech eval ordered ?Bronchitis CTA chest with suggestion of bronchitis, however asymptomatic and O2 sat 98% on room air. No tx indicated for now DVT Ppx: SQ heparin Code status: FULL PCP: Baldemar Dispo: Admitted to PCU Patient seen in collaboration with Dr. Argueta. Please see addendum. I spent a total of 75 minutes coordinating, documenting, and providing care for this patient excluding time spent in the performance of separately billed services. History of Present Illness Chief Complaint: CP Primary Care Provider: Emily Mcdermott, This is an 88-year-old female with PMH of hypertension, CKD 3, prediabetes, memory changes without formal dementia diagnosis and other medical problems listed below who presents from home after episode of chest pain earlier today. Slept well but when ambulating back from the bathroom this morning developed chest pain, which prompted ED visit. Patient lives alone and was in normal state of health when she went to bed. Did ambulate to the bathroom around 6 AM and when she got back in bed felt chest tightness across her chest that lasted for at least a few minutes but is unable to determine full timeline. Pain was nonradiating. Denies any associated shortness of breath, nausea, vomiting or diaphoresis. Was able to get a hold of her daughter by 7 AM and she called EMS to bring patient in for further evaluation of chest pain. When EMS arrived, patient was weak getting out of bed and had difficulty ambulating. Was unable to determine when she developed that weakness but thinks it was early this morning. Was given aspirin en route. When evaluated for admission, patient no longer had chest pain at rest. Was noted by ED staff to have lower extremity weakness, L>R when they tried to ambulate her. Patient is not completely sure when that started but has gotten much more significant since 6AM. This is not typical for her as she ambulates independently at baseline. The ED staff tried to ambulate her earlier, noted weakness on left extremity. Now having difficulty lifting left leg off the bed. Patient ambulates independently at baseline. Ran out of amlodipine mid-May and has not refilled. Otherwise takes vitamins only. Due for formal neuro evaluation in August given progressive memory changes. Denies any fever, chills, cough, congestion, chest pain, palpitations, shortness of breath, nausea, vomiting, abdominal pain, dysuria, diarrhea or constipation. Denies any personal history of known coronary or stroke history. Allergies Allergy/AdvReac Type Severity Reaction Status Date / Time Sulfa (Sulfonamide Allergy Severe Hives Verified 10/10/22 10:00 Antibiotics) Home Medications Medication Instructions Recorded Confirmed Type ascorbic acid (vitamin C) 500 mg 500 mg PO QAM ##0 03/16/15 07/20/24 History capsule,extended release calcium 500 mg (as 1 tab PO QAM ##0 03/29/18 07/20/24 History carbonate)-vitamin D3 5 mcg (200 unit) tablet (Calcium 500 + D) cholecalciferol (vitamin D3) 25 1,000 unit PO QAM ##0 03/29/18 07/20/24 History mcg (1,000 unit) capsule amlodipine 2.5 mg tablet 2.5 mg PO UD 07/20/24 07/20/24 History carboxymethylcellulose sodium 0.5 1 drp ophthalmic (eye) TID 07/20/24 07/20/24 History % eye drops (Refresh Tears) Past Med/Surg History Problem List (Updated 07/20/24 @ 13:[address] PA-C) Stroke-like symptoms Leg weakness (Acute) Hypertension (Acute) Chest pain (Acute) Non-healing wound of left lower extremity (Acute) Syncope (Acute) Hypertensive urgency (Acute) Acute hyponatremia (Acute) Encounter for pre-operative examination Finger avulsion (Acute) Medical History (Updated 07/20/24 @ 13:[address] PA-C) Breast abscess LEFT BREAST, STAPH INFECTION DRAINED UNDER ANESTHESIA Surgical History S/P cataract extraction and insertion of intraocular lens Right cataract 04/24/18 History of colonoscopy 10 YR AGO Family History Brother Coronary heart disease CABG Social History Smoking Status: Never smoker Second Hand Exposure: No; Do You Dip or Chew Tobacco: No; Hx Alcohol Use: No Hx Substance Use: No Preferred Language: Swedish Communication Ability: Effective Clinical Data Research Required: No Beliefs That Will Affect Care: None Current Living Situation: Spouse Current Living Situation Comment: 55+ COMMUNITY Feels Safe at Home: Yes Assistive Devices: None Review of Systems Review of Systems: At least ten systems reviewed and negative except as noted in the HPI. Physical Exam Physical Exam: General Appearance: WD/WN, vitals as above, NAD, sitting up in bed, pleasant, conversing easily Head: normocephalic, atraumatic Eyes: normal inspection, PERRL, conjunctivae normal, anicteric sclerae ENT: external ear and nose normal, oropharynx normal Neck: normal visual inspection, trachea midline, no thyromegaly Respiratory: normal respiratory effort, diminished breath sounds bilaterally, , no wheeze, rales. No accessory muscle use Cardiovascular: regular rate, rhythm, normal peripheral pulses, no BLE edema. Vessels: no JVD Chest: normal inspection of chest Abdomen/GI: normal bowel sounds, soft, nontender, no hepatosplenomegaly Extremities/Musculoskeletal: no cyanosis or clubbing, extremities motor st rengt 5/5 Neurologic: PERRL, EOMI, accommodation nl, no face palsy, no dysarthria, CN's II-XI intact bilaterally. BUE active ROM, 5/5 strength. RLE 5/5 strength, LLE 3+/5, sensation intact Psychiatric: A+Ox3, euthymic affect Skin: no rashes, normal color, warm/dry Results & Data Results & Data Vital Signs (Past 12 Hours) Vital Signs Temp Pulse Resp BP Pulse Ox O2 Del Method 07/20/24 10:06 76 24 95 07/20/24 10:00 173/94 H 07/20/24 09:54 76 24 07/20/24 09:51 75 13 07/20/24 09:42 80 17 07/20/24 09:38 167/89 H 07/20/24 09:33 73 22 07/20/24 09:30 182/92 H 07/20/24 09:30 182/92 H 07/20/24 09:00 169/75 H 07/20/24 08:34 75 07/20/24 08:32 96 Room Air 07/20/24 08:24 95 Room Air 07/20/24 08:19 36.7 C 79 19 177/104 H 94 Room Air Laboratory Results Short CBC 07/20/24 Range/Units 08:26 WBC 4.89 (4.8-10.8) K/ul Hgb 14.6 (12.0-16.0) g/dl Hct 44.3 (37.0-47.0) % Plt Count 145 (130-400) K/uL BMP 07/20/24 08:26 Sodium 140 Potassium 4.0 Chloride 106 Carbon Dioxide 28 BUN 26 H Creatinine 0.93 Glucose 112 H Calcium 8.9 Liver Function 07/20/24 Range/Units 08:26 Total Bilirubin 0.5 (0.2-1.0) mg/dl AST 20 (13-39) U/L ALT 20 (7-52) U/L Alkaline Phosphatase 72 (34-104) U/L Albumin 3.8 (3.4-5.0) gm/dl Urine 07/20/24 Range/Units 09:39 Urine Color Yellow Urine Appearance Clear (Clear) Urine pH 7.5 (4.5-7.5) Ur Specific [place] 1.009 (1.000-1.030) Urine Protein Negative (Negative) Urine Glucose (UA) Negative (Negative) ECG Additional Comments: NSR [address] changes Code Status & VTE Plan VTE Prophylaxis Plan VTE Prophylaxis will be ordered: Yes (3) Hypertension Hypertension type: primary hypertension Qualified Code(s): I10 - Essential (primary) hypertension (4) Chest pain Chest pain type: unspecified Qualified Code(s): R07.9 - Chest pain, unspecifi ed
--- NOTE | 2024-07-20 11:57 | Electrocardiogram Report ---
Test Reason : Blood Pressure : */* mmHG Vent. Rate : 74 BPM Atrial Rate : 74 BPM P-R Int : 150 ms QRS Dur : 74 ms QT Int : 400 ms P-R-T Axes : 76 26 61 degrees QTcB Int : 444 ms Normal sinus rhythm Low voltage QRS Borderline ECG When compared with ECG of 16-Aug-2019 19:15, No significant change was found Confirmed by Ladarius Bella ([id number]) on 07/20/2024 11:57:26 AM Referred By: REFERRED SELF Confirmed By: Ladarius Bella
[2024-07-20] MEDS: PANTOprazole 40 MG/10 ML SYR IV ONE (12:41)
[2024-07-20 13:52] LABS: Adenovirus PCR Not Detected (NotDetected); Bordetella parapertussis PCR Not Detected (NotDetected); Bordetella pertussis PCR Not Detected (NotDetected); Chlamydia pneumoniae PCR Not Detected (NotDetected); Coronavirus 229E PCR Not Detected (NotDetected); Coronavirus CoV-2 (COVID19)PCR Not Detected (NotDetected); Coronavirus HKU1 PCR Not Detected (NotDetected); Coronavirus NL63 PCR Not Detected (NotDetected); Coronavirus OC43PCR Not Detected (NotDetected); Human Metapneumovirus PCR Not Detected (NotDetected); Influenza A PCR Not Detected (NotDetected); Influenza B PCR Not Detected (NotDetected); Mycoplasma pneumoniae PCR Not Detected (NotDetected); Parainfluenza Virus 1 PCR Not Detected (NotDetected); Parainfluenza Virus 2 PCR Not Detected (NotDetected); Parainfluenza Virus 3 PCR Not Detected (NotDetected); Parainfluenza Virus 4 PCR Not Detected (NotDetected); Respiratory Syncytial VirusPCR Not Detected (NotDetected); Rhinovirus/Enterovirus PCR Not Detected (NotDetected)
[2024-07-20] MEDS ORDERED: PHARMACIST DISCHARGE MED REC CONSULT PRN (14:25)
[2024-07-20] MEDS ORDERED: ONDANSETRON INJ 2 MG/ML 2 ML VIAL IV PRN (14:25)
[2024-07-20] MEDS ORDERED: POLYETHYLENE (MIRALAX) 17 GM PACK PO PRN (14:25)
[2024-07-20] MEDS ORDERED: INFLUENZA VACC TS2024-25(65y+)/PF (IIV3) 0.5mL Syr IM ONE (14:57)
--- NOTE | 2024-07-20 16:09 | Magnetic Resonance Report ---
EXAM: MR brain wo con CLINICAL HISTORY: left lower extremity weakness, memory issues TECHNIQUE: MRI of the brain was performed without contrast with multiplanar sequences obtained. COMPARISON: CT 09/12/2019 FINDINGS: Brain Parenchyma: Periventricular white matter signal lateration are likely related to small vessel disease together with mild global brain atrophy represent aging brain changes No evidence of acute infarction or hemorrhage. Normal nguyen-white matter differentiation. No mass lesions or focal cortical abnormalities identified. Ventricles and Sulci: Prominant ventricular system , cortical sulci and basal cisterns. No evidence of hydrocephalus . Posterior Fossa: Cerebellum and brainstem appear normal without evidence of mass lesions or signal abnormalities. Cranial Nerves: Normal course and appearance of cranial nerves identified. Orbits and Skull Base: Incidental oblong shape 13x7mm lesion seen in the left paraphryngeal space require dedicated study for proper evaluation. Small left lobe region epidermal cyst stable IMPRESSION: 1. No acute intracranial abnormality identified. 2. Changes related to small vessel disease with mild aging brain atrophy. Stable 3. Incidental oblong shape 13x7mm lesion seen in the left paraphryngeal space require dedicated study for proper evaluation. New findings Electronically signed by Poonam Corea 07-20-2024 4:09 PM
[2024-07-20] MEDS: CLOPIDOGREL BISULFATE 75 MG TAB PO ONE (17:27)
[2024-07-20] MEDS: ACETAMINOPHEN 325 MG TAB PO PRN (19:57)
[2024-07-20] MEDS: ATORVASTATIN 40 MG TAB PO SCH (20:55)
[2024-07-20] MEDS: MELATONIN 3 MG TAB PO PRN (20:56)
[2024-07-20] MEDS: HEPARIN SOD 5,000 UNIT/0.5 ML VIAL SQ SCH (21:00)
[2024-07-20] MEDS: ARTIFICIAL TEARS OP SCH (21:08)
--- NOTE | 2024-07-21 02:23 | Magnetic Resonance Report ---
EXAM: MR lumbar spine wo con CLINICAL HISTORY: left lower extremity weakness No syncope or falls, her legs seem to be a little bit jumpy but not really having cramps No significant numbness or tingling reported patient was not holding still, moving legs and back during the exam, spoke to her and she said she would try but still moves, used some propeller sequences, best images possible TECHNIQUE: MRI of the lumbar spine was performed without the administration of intravenous contrast acquiring multiple sequences. COMPARISON: Prior CT study dated 08/17/2019. FINDINGS: Vertebral Alignment: Normal alignment of the lumbar spine without evidence of fracture or malalignment. No evidence of scoliosis is observed. Marrow signals are normal. Vertebral Bodies and Intervertebral Discs: Mild spondylosis of the lumbar spine with fine marginal osteophytosis and desiccated all examined disc materials. [id number].5.1.1 T12 /OBX.5.1.1OBX.5.1.2 L2 vertebral body hemangiomas are seen following fat intensity./OBX.5.1.2/OBX.5.1 Normal vertebral body height, no fracture identified. No lytic or sclerotic lesions. Normal bone marrow signal intensity. Intervertebral discs demonstrate normal hydration and no evidence of herniation or degenerative changes. Uecel-sn-bhjxs analysis: T12-L1: There is no significant disc pathology. No spinal canal stenosis. No neural foraminal stenosis.No ligamentum flavum hypertrophy and facet joint arthropathy. L1-L2: There is no significant disc pathology. No spinal canal stenosis. No neural foraminal stenosis.No ligamentum flavum hypertrophy and facet joint arthropathy. L2-L3: There is a 2.4 mm disc bulge that flattens the ventral theca with subtle lower extent exit neural foraminal encroachment. No spinal canal stenosis. No gross neural foraminal stenosis.Mild ligamentum flavum hypertrophy and minimal facet joint effusion were noted. L3-L4: There is a 2.5 mm disc bulge that flattens the ventral theca with subtle lower extent exit neural foraminal encroachment, No spinal canal stenosis. No gross neural foraminal stenosis.No ligamentum flavum hypertrophy and facet joint arthropathy. L4-L5: There is a 5.8 mm diffuse disc bulge that compresses the ventral theca with moderate bilateral exit neural foraminal encroachment. Moderate spinal canal stenosis. Mild bilateral neural foraminal stenosis, bilateral ligamentum flavum hypertrophy, and facet joint arthropathy with effusion noted. L5-S1: There is a 3.4 mm diffuse disc bulge indents the ventral theca with mild bilateral lower extent exit neural formainal encroachment No spinal canal stenosis. No ligamentum flavum hypertrophy and facet joint arthropathy. Spinal Cord and Nerve Roots: Conus medullaris terminates at the L1 level without abnormality. Nerve roots appear unremarkable bilaterally. The lower thoracic spinal cord, conus medullaris, and cauda equina nerve roots are unremarkable. Soft Tissues: Paraspinal soft tissues appear normal without evidence of abnormal signal intensity or mass lesions. IMPRESSION: 1. Mild spondylosis of the Lumbar spine. 2. Multilevel degenerative disc lesions as described above, are more pronounced in L4-5 disc level. 3. L4-5 degenerative spinal canal stenosis noted. 4. T12 and L2 vertebral body hemangiomas appreciated. Electronically signed by Poonam Corea 07-21-2024 02:20 AM
[2024-07-21 08:09] LABS: Hematocrit (blood only) 42.5 % (37.0-47.0); Hemoglobin 14.3 g/dl (12.0-16.0); Mean Corpuscular Hemoglobin 31.6 pg (25.0-34.0); Mean Corpuscular Hgb Conc 33.6 g/dL (32.0-36.0); Mean Corpuscular Volume 93.8 fL (80.0-100.0); Mean Platelet Volume 11.2 fL (9.4-12.4); Platelet Count 153 K/uL (130-400); RDW Coefficient of Variation 13.4 % (11.5-14.5); RDW Standard Deviation 46.4 fL (36.4-46.3); Red Blood Count 4.53 M/uL (4.20-5.40); White Blood Count 6.86 K/ul (4.8-10.8)
[2024-07-21 08:25] LABS: BUN Creatinine Ratio 26.2 (10-20); Calcium 8.3 mg/dl (8.6-10.3); Chol HDL Ratio 2.8 (0-5); Creatinine Clr Calc Pharmacy 40.4 ml/min; Potassium 3.8 mmol/L (3.5-5.1)
[2024-07-21 08:26] LABS: Estimated Average Glucose 114 mg/dl; Hemoglobin A1C 5.6 % (4.5-5.6)
--- NOTE | 2024-07-21 08:33 | Electrocardiogram Report ---
Test Reason : Blood Pressure : */* mmHG Vent. Rate : 75 BPM Atrial Rate : 75 BPM P-R Int : 150 ms QRS Dur : 74 ms QT Int : 422 ms P-R-T Axes : 80 47 79 degrees QTcB Int : 471 ms Normal sinus rhythm Biatrial enlargement Abnormal ECG When compared with ECG of 20-Jul-2024 08:22, Low voltage QRS no longer present Confirmed by Ladarius Bella ([id number]) on 07/21/2024 8:33:25 AM Referred By: REFERRED SELF Confirmed By: Ladarius Bella
[2024-07-21] MEDS ORDERED: amLODIPine BESYLATE 5 MG TAB PO SCH (09:30)
--- NOTE | 2024-07-21 09:31 | Hospitalist Progress Note ---
Date of Service July 21, 2024 Assessment & Plan (1) Paraparesis of both lower limbs: Plan: Etiology of this so far cannot be explained by the MRI of the brain or MRI of the lumbar spine. However both studies were without enhancement, I will complete the workup with ordering MRI of the cervical spine and thoracic spine with and without contrast. Will discontinue treatment for stroke as MRI did not show any finding.However I am interested getting an echocardiogram. PT OT has already been consulted which will see the patient tomorrow. (2) Urinary retention: Plan: This was discovered yesterday in the emergency room when patient was ambulated and was taken to the bathroom and she was unable to void, Kessler catheter was introduced. Again this has never been noticed before and patient does not reported before. This seems to be because of a neurological involvement of some acute nature. Continue with draining catheter and complete the neurological workup. (3) Hypertension: Plan: Blood pressure is controlled, restart home medication with amlodipine 2.5 mg daily (4) Chest pain: Plan: Initial troponin was slightly elevated but the second 1 was normal, echocardiogram showed grade 1 diastolic LV dysfunction in the ejection fraction of 65 to 70% with no wall motion abnormality. No further workup is needed at this point, EKG was pretty much unremarkable with biatrial enlargement, no ST-T changes, some low voltage QRS but no ST-T changes. (5) Neck mass: Plan: Patient was found to have incidentally a left parapharyngeal mass, nature of this is not quite clear, I have called ENT for consult for further review. Plan Will review the case with neurology, awaiting their input, await MRI of the cervical spine and thoracic spine with and without contrast, ENT consult has already been notified to be done tomorrow for the incidental finding of left parapharyngeal mass. Continue with Kessler catheter. Admission and Anticipated Discharge Date Admission Date: July 20, 2024 Subjective Patient is a very pleasant 88-year-old female with prior history of CKD stage III, hypertension and some cognitive impairment likely related to her age who all of a sudden yesterday started developing bilateral lower extremity weakness to the point that she was unable to ambulate, she also remembers having some chest discomfort and throat discomfort. Prior to this she has been pretty much ambulatory and independent, I had a chance to speak to her daughter at bedside today and she confirmed the information provided by patient herself. On my examination patient was found to have significant lower extremity weakness bilaterally. Patient was admitted for the workup of stroke, MRI of the brain was done which was unremarkable showing no acute event. There was some element of chronic small vessel disease. Incidentally she was found to have an oblong shape 13 x 7 mm lesion in the left parapharyngeal space. Patient was seen and examined, clinically stable awaiting completion of the workup. Physical Exam Physical Exam: VITALS: Reviewed. WEIGHT/BMI reviewed. GEN: Healthy appearing, well-developed, NAD.memory, mood, and affect. NECK: Supple, did not feel any mass on examination of the neck CV: RRR, no m/r/g. LUNGS: CTAB, no w/r/c. ABD: Soft, NT/ND, NBS, no masses or organomegaly. SKIN: Warm, well perfused. No skin rashes or abnormal lesions. MSK: No deformities, Normal gait. EXT: No clubbing, cyanosis, or edema. NEURO: Patient has normal sensory and motor exam in upper extremities b ilaterally, cranial nerves II to XII intact, on lower extremity, she has motor strength of 3/5 on bilateral lower extremities. She probably is a little worse on the left side. Results & Data Results & Data Vital Signs (Past 12 Hours) Vital Signs Temp Pulse Pulse Resp BP Pulse Ox O2 Del Method 07/21/24 08:24 36.6 C 77 18 146/80 H 99 Room Air 07/21/24 07:12 67 07/21/24 02:41 36.6 C 77 16 145/75 H 95 Room Air 07/20/24 23:40 92 H 07/20/24 22:25 36.8 C 85 18 142/60 H 98 Room Air Laboratory Results Laboratory Results - last 24 hr 07/20/24 07/20/24 07/20/24 09:39 12:45 15:18 WBC RBC Hgb Hct MCV MCH MCHC RDW Std Deviation RDW Coeff of Clarence Plt Count MPV Sodium Potassium Chloride Carbon Dioxide Anion Gap BUN Creatinine Est Cr Clr Drug Dosing eGFR BUN/Creatinine Ratio Glucose Estimat Average Glucose Hemoglobin A1c Calcium Troponin I High Sens 19.8 H Triglycerides Cholesterol LDL Cholesterol, Calc VLDL Cholesterol, Calc HDL Cholesterol Cholesterol/HDL Ratio Urine Color Yellow Urine Appearance Clear Urine pH 7.5 Ur Specific [place] 1.009 Urine Protein Negative Urine Glucose (UA) Negative Urine Ketones Negative Urine Blood Negative Urine Nitrite Negative Urine Bilirubin Negative Urine Urobilinogen Negative Ur Leukocyte Esterase Negative Adenovirus (PCR) Not Detected B. pertussis DNA (PCR) Not Detected B.parapertussis DNA PCR Not Detected C. pneumoniae DNA (PCR) Not Detected Coronavirus OC43 (PCR) Not Detected Coronavirus HKU1 (PCR) Not Detected Coronavirus 229E (PCR) Not Detected SARS-CoV-2 (PCR) Not Detected Coronavirus NL63 (PCR) Not Detected Human Metapneumovir PCR Not Detected Influenza Type A (PCR) Not Detected Influenza Type B (PCR) Not Detected M. pneumoniae (PCR) Not Detected Parainfluenza 1 (PCR) Not Detected Parainfluenza 2 (PCR) Not Detected Parainfluenza 3 (PCR) Not Detected Parainfluenza 4 (PCR) Not Detected RSV (PCR) Not Detected Entero/Rhino (PCR) Not Detected 07/20/24 07/21/24 20:25 07:24 WBC 6.86 RBC 4.53 Hgb 14.3 Hct 42.5 MCV 93.8 MCH 31.6 MCHC 33.6 RDW Std Deviation 46.4 H RDW Coeff of Clarence 13.4 Plt Count 153 MPV 11.2 Sodium 137 Potassium 3.8 Chloride 106 Carbon Dioxide 25 Anion Gap 6 BUN 22 Creatinine 0.84 Est Cr Clr Drug Dosing 40.4 eGFR 67.63 BUN/Creatinine Ratio 26.2 H Glucose 116 H Estimat Average Glucose 114 Hemoglobin A1c 5.6 Calcium 8.3 L Troponin I High Sens 12.6 D Triglycerides 123 Cholesterol 207 H LDL Cholesterol, Calc 107 VLDL Cholesterol, Calc 25 HDL Cholesterol 75 Cholesterol/HDL Ratio 2.8 Urine Color Urine Appearance Urine pH Ur Specific [place] Urine Protein Urine Glucose (UA) Urine Ketones Urine Blood Urine Nitrite Urine Bilirubin Urine Urobilinogen Ur Leukocyte Esterase Adenovirus (PCR) B. pertussis DNA (PCR) B.parapertussis DNA PCR C. pneumoniae DNA (PCR) Coronavirus OC43 (PCR) Coronavirus HKU1 (PCR) Coronavirus 229E (PCR) SARS-CoV-2 (PCR) Coronavirus NL63 (PCR) Human Metapneumovir PCR Influenza Type A (PCR) Influenza Type B (PCR) M. pneumoniae (PCR) Parainfluenza 1 (PCR) Parainfluenza 2 (PCR) Parainfluenza 3 (PCR) Parainfluenza 4 (PCR) RSV (PCR) Entero/Rhino (PCR) Diagnostic Findings Chest X-Ray 07/20/24 08:29 XR chest 1V portable HISTORY: 88 years-old Female Chest pain, nonspecific COMPARISON: CTA chest of same day TECHNIQUE: AP view of the chest FINDINGS: Cardiac silhouette is enlarged. Ill-defined interstitial coarsening corresponds with the groundglass densities seen on the same day CTA chest. No pneumothorax, pleural effusion or overt pulmonary edema. IMPRESSION: 1. No airspace consolidation typical for pneumonia. 2. Please refer to the CTA chest of same day for additional findings. ACT 112: Negative or not required by law. The above report was generated using voice recognition software. It may contain grammatical, syntax or spelling errors. Electronically signed by: Vernon Srinivasan M.D. 07/20/2024 10:38 AM Chest CTA 07/20/24 10:03 CT angio chest PE protocol HISTORY: 88 years-old Female with PE, CP, leg weakness. Acute chest pain with shortness of breath TECHNIQUE: Multiple CTA images of the chest were obtained after the intravenous administration of 112 ml Optiray. Coronal and sagittal MIPS were obtained from the axial data set and were submitted for review. All measurements were obtained according to NASCET criteria. A dose lowering technique was utilized adhering to the principles of ALARA. COMPARISON: CT thoracic spine 08/17/2019 FINDINGS: CTA: Moderate cardiomegaly. No pericardial effusion. There is prominent atherosclerosis of the descending and imaged upper abdominal aorta. No thoracic aortic aneurysm or dissection. No pulmonary emboli. CT CHEST: Unremarkable thyroid. Calcified mediastinal and hilar lymph nodes. There is circumferential wall thickening noted throughout the majority of the esophagus. There is no pneumothorax, pleural effusion or pulmonary edema. Mild biapical p leural-parenchymal scarring. Ground glass densities with intermixed mosaic attenuation. Areas of mucous plugging are noted within the lung bases. Bronchial wall thickening. No suspicious pulmonary nodules or masses. 4 mm subpleural solid nodule within the lateral segment right middle lobe on image 65 is of low clinical suspicion. Calcified granulomata spleen and liver. No acute fracture. Healed chronic lateral left rib fractures. IMPRESSION: 1. No pulmonary emboli. 2. Findings suggestive of bronchitis bronchitis with mucus plugging, bilateral atelectasis and air trapping. 3. No pleural effusion or airspace consolidation typical for pneumonia. 4. Prior granulomatous disease. 5. Nonspecific diffuse esophageal wall thickening suspicious for esophagitis. ACT 112: Negative or not required by law. The above report was generated using voice recognition software. It may contain grammatical, syntax or spelling errors. Electronically signed by: Vernon Srinivasan M.D. 07/20/2024 11:[address] 07/20/24 10:03 CT angio head w con, CT head/brain wo con, CT angio neck with con CLINICAL HISTORY: 88 years-old Female with leg weakness. Acute stroke like symptoms with lower extremity muscle spasms and hypertension COMPARISON STUDY: CT head 08/16/2019, CT thoracic spine 08/17/2019. TECHNIQUE: Unenhanced axial CT scan of the brain is performed. Subsequently, following the IV administration of 112 cc of Optiray, CT angiogram of the head and was performed. Images are reviewed in the axial, sagittal, and coronal planes. 3-D MIPS images are created and assessed. IV contrast was administered without complication. All measurements were obtained according to NASCET criteria. A dose lowering technique was utilized adhering to the principles of ALARA. CT DOSE: 1387.1 mGy.cm FINDINGS: CT BRAIN: There is no acute intracranial hemorrhage, midline shift, hydrocephalus, intracranial mass, territorial ischemia or abnormal extra-axial collections. No abnormal intra-axial or extra-axial enhancement. Involutional changes with chronic microvascular ischemic disease. Mastoid air cells and middle ear cavities are clear. No calvarial fracture. Paranasal sinuses are clear. Benign- appearing 10 mm calcified lesion of the superior left frontal scalp on image [address] ANGIOGRAM OF THE HEAD AND NECK: Atherosclerosis of the thoracic aortic arch. The imaged pulmonary arteries unremarkable. Common and internal carotid arteries are patent. Atherosclerosis of the supraclinoid segment right ICA on image 109 causes moderate stenosis. Atherosclerosis of the left greater than right carotid bulbs and proximal internal carotid arteries. Dominant right vertebral artery. The vertebral arteries are patent bilaterally. The bilateral anterior and middle cerebral arteries are also patent. Moderate multifocal stenoses throughout the left posterior cerebral artery. No aneurysm, dissection or arterial occlusion identified. Lung apices are clear without pneumothorax. Biapical pleural parenchymal scarring. Unremarkable soft tissues. Moderate chronic T3 compression deformity with progressive vertebral body height loss. Degenerative changes of the spine. Mild nonspecific proximal esophageal wall thickening. IMPRESSION: 1. No acute intracranial abnormality. 2. Unremarkable CTA of the head and neck. 3. Nonspecific esophageal wall thickening. Correlate clinically to exclude esophagitis. ACT 112: Negative or not required by law. The above report was generated using voice recognition software. It may contain grammatical, syntax or spelling errors. Electronically signed by: Vernon Srinivasan M.D. 07/20/2024 11:03 AM Head CTA 07/20/24 10:03 CT angio head w con, CT head/brain wo con, CT angio neck with con CLINICAL HISTORY: 88 years-old Female with leg weakness. Acute stroke like symptoms with lower extremity muscle spasms and hypertension COMPARISON STUDY: CT head 08/16/2019, CT thoracic spine 08/17/2019. TECHNIQUE: Unenhanced axial CT scan of the brain is performed. Subsequently, following the IV administration of 112 cc of Optiray, CT angiogram of the head and was performed. Images are reviewed in the axial, sagittal, and coronal planes. 3-D MIPS images are created and assessed. IV contrast was administered without complication. All measurements were obtained according to NASCET criteria. A dose lowering technique was utilized adhering to the principles of ALARA. CT DOSE: 1387.1 mGy.cm FINDINGS: CT BRAIN: There is no acute intracranial hemorrhage, midline shift, hydrocephalus, intracranial mass, territorial ischemia or abnormal extra-axial collections. No abnormal intra-axial or extra-axial enhancement. Involutional changes with chronic microvascular ischemic disease. Mastoid air cells and middle ear cavities are clear. No calvarial fracture. Paranasal sinuses are clear. Benign- appearing 10 mm calcified lesion of the superior left frontal scalp on image [address] ANGIOGRAM OF THE HEAD AND NECK: Atherosclerosis of the thoracic aortic arch. The imaged pulmonary arteries unremarkable. Common and internal carotid arteries are patent. Atherosclerosis of the supraclinoid segment right ICA on image 109 causes moderate stenosis. Atherosclerosis of the left greater than right carotid bulbs and proximal internal carotid arteries. Dominant right vertebral artery. The vertebral arteries are patent bilaterally. The bilateral anterior and middle cerebral arteries are also patent. Moderate multifocal stenoses throughout the left post erior cerebral artery. No aneurysm, dissection or arterial occlusion identified. Lung apices are clear without pneumothorax. Biapical pleural parenchymal scarring. Unremarkable soft tissues. Moderate chronic T3 compression deformity with progressive vertebral body height loss. Degenerative changes of the spine. Mild nonspecific proximal esophageal wall thickening. IMPRESSION: 1. No acute intracranial abnormality. 2. Unremarkable CTA of the head and neck. 3. Nonspecific esophageal wall thickening. Correlate clinically to exclude esophagitis. ACT 112: Negative or not required by law. The above report was generated using voice recognition software. It may contain grammatical, syntax or spelling errors. Electronically signed by: Vernon Srinivasan M.D. 07/20/2024 11:03 AM Neck CTA 07/20/24 10:03 CT angio head w con, CT head/brain wo con, CT angio neck with con CLINICAL HISTORY: 88 years-old Female with leg weakness. Acute stroke like sy mptoms with lower extremity muscle spasms and hypertension COMPARISON STUDY: CT head 08/16/2019, CT thoracic spine 08/17/2019. TECHNIQUE: Unenhanced axial CT scan of the brain is performed. Subsequently, following the IV administration of 112 cc of Optiray, CT angiogram of the head and was performed. Images are reviewed in the axial, sagittal, and coronal planes. 3-D MIPS images are created and assessed. IV contrast was administered without complication. All measurements were obtained according to NASCET criteria. A dose lowering technique was utilized adhering to the principles of ALARA. CT DOSE: 1387.1 mGy.cm FINDINGS: CT BRAIN: There is no acute intracranial hemorrhage, midline shift, hydrocephalus, intracranial mass, territorial ischemia or abnormal extra-axial collections. No abnormal intra-axial or extra-axial enhancement. Involutional changes with chronic microvascular ischemic disease. Mastoid air cells and middle ear cavities are clear. No calvarial fracture. Paranasal sinuses are clear. Benign- appearing 10 mm calcified lesion of the superior left frontal scalp on image [address] ANGIOGRAM OF THE HEAD AND NECK: Atherosclerosis of the thoracic aortic arch. The imaged pulmonary arteries unremarkable. Common and internal carotid arteries are patent. Atherosclerosis of the supraclinoid segment right ICA on image 109 causes moderate stenosis. Atherosclerosis of the left greater than right carotid bulbs and proximal internal carotid arteries. Dominant right vertebral artery. The vertebral arteries are patent bilaterally. The bilateral anterior and middle cerebral arteries are also patent. Moderate multifocal stenoses throughout the left posterior cerebral artery. No aneurysm, dissection or arterial occlusion identified. Lung apices are clear without pneumothorax. Biapical pleural parenchymal scarring. Unremarkable soft tissues. Moderate chronic T3 compression deformity with progressive vertebral body height loss. Degenerative changes of the spine. Mild nonspecific proximal esophageal wall thickening. IMPRESSION: 1. No acute intracranial abnormality. 2. Unremarkable CTA of the head and neck. 3. Nonspecific esophageal wall thickening. Correlate clinically to exclude esophagitis. ACT 112: Negative or not required by law. The above report was generated using voice recognition software. It may contain grammatical, syntax or spelling errors. Electronically signed by: Vernon Srinivasan M.D. 07/20/2024 11:03 AM Brain MRI 07/20/24 13:07 EXAM: MR brain wo con CLINICAL HISTORY: left lower extremity weakness, memory issues TECHNIQUE: MRI of the brain was performed without contrast with multiplanar sequences obtained. COMPARISON: CT 09/12/2019 FINDINGS: Brain Parenchyma: Periventricular white matter signal lateration are likely related to small vessel disease together with mild global brain atrophy represent aging brain changes No evidence of acute infarction or hemorrhage. Normal nguyen-white matter differentiation. No mass lesions or focal cortical abnormalities identified. Ventricles and Sulci: Prominant ventricular system , cortical sulci and basal cisterns. No evidence of hydrocephalus . Posterior Fossa: Cerebellum and brainstem appear normal without evidence of mass lesions or signal abnormalities. Cranial Nerves: Normal course and appearance of cranial nerves identified. Orbits and Skull Base: Incidental oblong shape 13x7mm lesion seen in the left paraphryngeal space require dedicated study for proper evaluation. Small left lobe region epidermal cyst stable IMPRESSION: 1. No acute intracranial abnormality identified. 2. Changes related to small vessel disease with mild aging brain atrophy. Stable 3. Incidental oblong shape 13x7mm lesion seen in the left paraphryngeal space require dedicated study for proper evaluation. New findings Electronically signed by Poonam Corea 07-20-2024 4:09 PM Lumbar Spine MRI 07/20/24 20:28 EXAM: MR lumbar spine wo con CLINICAL HISTORY: left lower extremity weakness No syncope or falls, her legs seem to be a little bit jumpy but not really having cramps No significant numbness or tingling reported patient was not holding still, moving legs and back during the exam, spoke to her and she said she would try but still moves, used some propeller sequences, best images possible TECHNIQUE: MRI of the lumbar spine was performed without the administration of intravenous contrast acquiring multiple sequences. COMPARISON: Prior CT study dated 08/17/2019. FINDINGS: Vertebral Alignment: Normal alignment of the lumbar spine without evidence of fracture or malalignment. No evidence of scoliosis is observed. Marrow signals are normal. Vertebral Bodies and Intervertebral Discs: Mild spondylosis of the lumbar spine with fine marginal osteophytosis and desiccated all examined disc materials. [id number] T12 /OBX.5.1.1OBX.5.1.2 L2 vertebral body hemangiomas are seen following fat intensity./OBX.5.1.2/OBX.5.1 Normal vertebral body height, no fracture identified. No lytic or sclerotic lesions. Normal bone marrow signal intensity. Intervertebral discs demonstrate normal hydration and no evidence of herniation or degenerative changes. [id number]-rs-uitor analysis: T12-L1: There is no significant disc pathology. No spinal canal stenosis. No neural foraminal stenosis.No ligamentum flavum hypertrophy and facet joint arthropathy. L1-L2: There is no significant disc pathology. No spinal canal stenosis. No neural foraminal stenosis.No ligamentum flavum hypertrophy and facet joint arthropathy. L2-L3: There is a 2.4 mm disc bulge that flattens the ventral theca with subtle lower extent exit neural foraminal encroachment. No spinal canal stenosis. No gross neural foraminal stenosis.Mild ligamentum flavum hypertrophy and minimal facet joint effusion were noted. L3-L4: There is a 2.5 mm disc bulge that flattens the ventral theca with subtle lower extent exit neural foraminal encroachment, No spinal canal stenosis. No gross neural foraminal stenosis.No ligamentum flavum hypertrophy and facet joint arthropathy. L4-L5: There is a 5.8 mm diffuse disc bulge that compresses the ventral theca with moderate bilateral exit neural foraminal encroachment. Moderate spinal canal stenosis. Mild bilateral neural foraminal stenosis, bilateral ligamentum flavum hypertrophy, and facet joint arthropathy with effusion noted. L5-S1: There is a 3.4 mm diffuse disc bulge indents the ventral theca with mild bilateral lower extent exit neural formainal encroachment No spinal canal stenosis. No ligamentum flavum hypertrophy and facet joint arthropathy. Spinal Cord and Nerve Roots: Conus medullaris terminates at the L1 level without abnormality. Nerve roots appear unremarkable bilaterally. The lower thoracic spinal cord, conus medullaris, and cauda equina nerve roots are unremarkable. Soft Tissues: Paraspinal soft tissues appear normal without evidence of abnormal signal intensity or mass lesions. IMPRESSION: 1. Mild spondylosis of the Lumbar spine. 2. Multilevel degenerative disc lesions as described above, are more pronounced in L4-5 disc level. 3. L4-5 degenerative spinal canal stenosis noted. 4. T12 and L2 vertebral body hemangiomas appreciated. Electronically signed by Poonam Corea 07-21-2024 02:20 AM Medications Administered Current Inpatient Medications Acetaminophen (Acetaminophen 325 Mg Tab) 650 mg PO Q4H PRN PRN Reason: Pain or Fever Stop: 08/19/24 14:24 Last Admin: 07/20/24 19:57 Dose: 650 mg Artificial Tears (Artificial Tears) 1 drops OP TID [facility] Stop: 08/19/24 20:59 Last Admin: 07/20/24 21:08 Dose: 1 drops Aspirin (Aspirin 81 Mg Ectab) 81 mg PO QAM [facility] Stop: 08/20/24 08:59 Atorvastatin Calcium (Atorvastatin 40 Mg Tab) 40 mg PO QAM [facility] Stop: 08/19/24 20:59 Last Admin: 07/20/24 20:55 Dose: 40 mg Heparin Sodium (Porcine) (Heparin Sod 5,000 Unit/0.5 Ml Vial) 5,000 units SQ Q12 [facility] Stop: 08/19/24 20:59 Last Admin: 07/20/24 21:00 Dose: 5,000 units Melatonin (Melatonin 3 Mg Tab) 3 mg PO HS PRN PRN Reason: Sleep Stop: 08/19/24 19:29 Last Admin: 07/20/24 22:21 Dose: 3 mg Miscellaneous Information (Pharmacist Discharge Med Rec Consult) 1 each N/A UD PRN PRN Reason: Consult Stop: 08/19/24 14:24 Ondansetron HCl (Ondansetron Inj 2 Mg/Ml 2 Ml Vial) 4 mg IV Q6H PRN PRN Reason: Nausea Stop: 08/19/24 14:24 Polyethylene Glycol (Polyethylene (Miralax) 17 Gm Pack) 17 gm PO DAILY PRN PRN Reason: Constipation Stop: 08/19/24 14:24 (3) Hypertension Hypertension type: primary hypertension Qualified Code(s): I10 - Essential (primary) hypertension (4) Chest pain Chest pain type: unspecified Qualified Code(s): R07.9 - Chest pain, unspecified
[2024-07-21] MEDS: ASPIRIN 81 MG ECTAB PO SCH (09:50)
--- NOTE | 2024-07-21 10:26 | Neurology Consultation ---
Date of Consultation July 21, 2024 Assessment & Plan (1) Paraparesis of both lower limbs: Ann Farmer is an 88 yo F with acute onset lower extremity weakness and urinary retention concerning for GBS vs spinal cord infarct/infection. Suspect infection is less likely given the lack of fever. No back pain or trauma to suspect a compressive cause. Agree with MRI T and C spine with and without. Recommend LP for albuminocytologic dissociation. Recommend transfer to [facility] [place]. -- Arranged transfer to [facility] [place] -- MR T and C spine ordered and pending -- LP should be considered post MRI. -- No specific treatment at this time while investigations are ongoing Telehealth Consultation Telehealth Information Telehealth Information: I performed this visit using a real-time telehealth connection between my location and the patients location ([facility]). After connecting through interactive tele-video, patient was identified by name and date of and/or wristband check.Patient (or authorized healthcare bilingual call center representative) was informed that this was a telemedicine visit and it was being conducted confidentially over secure lines. My office door was closed and no one else was present in the room with me.Patient (or authorized healthcare bilingual call center representative) provided consent to proceed with the visit, expressed an understanding of privacy and security of the telemedicine visit, and gave permission to have a hospital bilingual call center representative in the room in order to assist with the visit and to conduct portions of the visit, as needed. I informed the patient (or authorized healthcare bilingual call center representative) that I reviewed their record and presented the opportunity for them to ask any questions regarding the visit today. The patient agreed to participate. History of Present Illness Reason for Consultation: Lower extremity weakness Requesting Physician: Dr. Argueta Attending Physician: Soila Argueta MD History of Present Illness Ann Farmer is an 88 yo F presenting with lower extremity weakness and urinary retention that began acutely yesterday. The patient lives independently and is able to care for herself and ambulate without difficulty. She woke up to go to the bathroom overnight and felt normal, then in the morning noticed she had difficulty walking. When she first came to [facility] she primarily had weakness of the L leg, but now both legs are affected. She denies any trauma, no back pain, no recent illnesses or fevers. She has no numbness of the legs but has pain when touching her legs, especially the lower legs. She denies any respiratory weakness/shortness of breath, no double vision, dysarthria or dysphagia. No symptoms or weakness in the arms. No hx of lyme disease or tick exposure. Allergies Allergy/AdvReac Type Severity Reaction Status Date / Time Sulfa (Sulfonamide Allergy Severe Hives Verified 10/10/22 10:00 Antibiotics) Home Medications Medication Instructions Recorded Confirmed Type ascorbic acid (vitamin C) 500 mg 500 mg PO QAM ##0 03/16/15 07/20/24 History capsule,extended release calcium 500 mg (as 1 tab PO QAM ##0 03/29/18 07/20/24 History carbonate)-vitamin D3 5 mcg (200 unit) tablet (Calcium 500 + D) cholecalciferol (vitamin D3) 25 1,000 unit PO QAM ##0 03/29/18 07/20/24 History mcg (1,000 unit) capsule amlodipine 2.5 mg tablet 2.5 mg PO UD 07/20/24 07/20/24 History carboxymethylcellulose sodium 0.5 1 drp ophthalmic (eye) TID 07/20/24 07/20/24 History % eye drops (Refresh Tears) Patient History Medical History (Updated 07/21/24 @ 09:31 by Soila Argueta MD) Breast abscess LEFT BREAST, STAPH INFECTION DRAINED UNDER ANESTHESIA Surgical History S/P cataract extraction and insertion of intraocular lens Right cataract 04/24/18 History of colonoscopy 10 YR AGO Family History Brother Coronary heart disease CABG Social History Smoking Status: Never smoker Second Hand Exposure: No; Do You Dip or Chew Tobacco: No; Hx Alcohol Use: No Hx Substance Use: No Preferred Language: Slovak Communication Ability: Effective Auto Garage Attendant Required: No Beliefs That Will Affect Care: None Current Living Situation: Alone Current Living Situation Comment: 55[facility] Feels Safe at Home: Yes Assistive Devices: Cane Results & Data Vital Signs (Past 12 Hours) Vital Signs Temp Pulse Pulse Resp BP Pulse Ox O2 Del Method 07/21/24 08:24 36.6 C 77 18 146/80 H 99 Room Air 07/21/24 07:12 67 07/21/24 02:41 36.6 C 77 16 145/75 H 95 Room Air 07/20/24 23:40 92 H 07/20/24 22:25 36.8 C 85 18 142/60 H 98 Room Air Laboratory Results Abnormal lab results 07/20/24 07/21/24 Range/Units 15:18 07:24 RDW Std Deviation 46.4 H (36.4-46.3) fL BUN/Creatinine Ratio 26.2 H (10-20) Glucose 116 H (70-99(Fasting)) mg/dl Calcium 8.3 L (8.6-10.3) mg/dl Troponin I High Sens 19.8 H (0-14) pg/ml Cholesterol 207 H (0-200) mg/dl Diagnostic Findings MRI brain - Unremarkable MR L-spine - unremarkable for cauda equina
[2024-07-21] MEDS: GADOBUTROL 65ML VIAL IV ONE (11:21)
[2024-07-21] MEDS: CHOLECALCIFEROL 25 MCG (1000 UNITS) TAB PO SCH (12:29)
[2024-07-21] MEDS: CALCIUM 600MG + VIT D 400 IU TAB PO SCH (12:30)
[2024-07-21] MEDS ORDERED: STROKE PATIENT DISCHARGE STA (12:47)
--- NOTE | 2024-07-21 12:51 | Discharge Summary ---
Discharge Summary Date of Service July 21, 2024 Principal Dx & Hospital Course #1 = Principal Diagnosis (1) Paraparesis of both lower limbs: (2) Urinary retention: (3) Hypertension: (4) Chest pain: (5) Neck mass: Notes For Next Care Provider Medication Changes From Visit No medication change Admission HPI Per Admitting Provider Patient is a very pleasant 88-year-old female with prior history of CKD stage III, hypertension and some cognitive impairment likely related to her age who all of a sudden yesterday started developing bilateral lower extremity weakness to the point that she was unable to ambulate, she also remembers having some chest discomfort and throat discomfort. Prior to this she has been pretty much ambulatory and independent, I had a chance to speak to her daughter at bedside today and she confirmed the information provided by patient herself. On my examination patient was found to have significant lower extremity weakness bilaterally. Patient was admitted for the workup of stroke, MRI of the brain was done which was unremarkable showing no acute event. There was some element of chronic small vessel disease. Incidentally she was found to have an oblong shape 13 x 7 mm lesion in the left parapharyngeal space. 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 Johnson communicated with me and would like patient to be transferred to [facility], he will be the accepting physician there. I ordered MRI of the C-spine and T-spine with and without contrast which are done but yet to be interpreted. I also consulted ENT for the incidental finding of left parapharyngeal mass however in the light of his transfer to [facility], I recommend this to be done at destination facility. Updated Medication List Medication Instructions Recorded Confirmed Type ascorbic acid (vitamin C) 500 mg 500 mg PO QAM ##0 03/16/15 07/20/24 History capsule,extended release calcium 500 mg (as 1 tab PO QAM ##0 03/29/18 07/20/24 History carbonate)-vitamin D3 5 mcg (200 unit) tablet (Calcium 500 + D) cholecalciferol (vitamin D3) 25 1,000 unit PO QAM ##0 03/29/18 07/20/24 History mcg (1,000 unit) capsule carboxymethylcellulose sodium 0.5 1 drp ophthalmic (eye) TID 07/20/24 07/20/24 History % eye drops (Refresh Tears) Hospital Stay Data Consultations 07/20/24 11:27 ED Decision to Admit Stat 07/20/24 13:07 Consult Neurology Routine Diagnostic Imagining Performed 07/20/24 10:03 CT angio chest PE protocol Stat CT angio head w con Stat CT angio neck with con Stat CT head/brain wo con Stat 07/20/24 13:07 MR brain wo con Urgent 07/20/24 20:28 MRI Lumbar Spine [MR lumbar spine wo con] Stat 07/21/24 09:11 MRI Spine [MR cervical spine wo/w con] Stat MRI Spine [MR thoracic spine wo/w con] Stat Pending Results Patient Have Any Pending Studies at Discharge: Yes Discharge Instructions Given to Patient (Per Discharging Provider) Patient to be transferred to acute medical care under care by neurology service, Dr. Johnson Total Time Total Time Spent Total Time Spent (In Minutes): 45 minutes
--- NOTE | 2024-07-21 14:18 | Magnetic Resonance Report ---
MR cervical spine wo/w con HISTORY: 88 years-old Female Paraparesis of acute onset acute neck pain COMPARISON: CT neck 07/20/2024 TECHNIQUE: Multiplanar multisequence MRI the cervical spine was obtained with and without IV contrast FINDINGS: Study is motion degraded. There is no abnormal enhancement. The imaged posterior fossa structures roxana ear unremarkable. No epidural fluid collections identified. There is a lobular 1.7 cm T2 hyperintense structure noted within the left paravertebral space on image 13 series 7. Mild mucosal thickening of the maxillary sinuses. No acute fracture, subluxation, endplate erosion or marrow replacing process. Chronic appearing T3 compression deformity with retropulsion, further discussed on the same day thor acic spine MR. Normal signal of the cervical spinal cord. C2-C3: Mild intervertebral disc space narrowing with moderate facet arthrosis. Central canal is paten t. Mild bilateral foraminal narrowing. C3-C4: Mild intervertebral disc space narrowing. Tiny posterior disc osteophyte complex. Severe facet arthrosis. Patent central canal. Severe left with moderate right foraminal narrowing. C4-C5: Severe intervertebral disc space narrowing. Circumferential disc osteophyte complex with advan monisha facet arthrosis. AP dimension of the thecal sac measures 6 mm. Mild to moderate central canal marley nosis. Severe bilateral foraminal narrowing. C5-C6: Moderate intervertebral disc space narrowing. Posterior disc osteophyte complex with advanced facet arthrosis. AP dimension of the thecal sac measures 7 mm. Mild to moderate central canal stenosi s. Severe bilateral foraminal narrowing. C6-C7: Moderate intervertebral disc space narrowing with posterior annular disc bulge and advanced fa cet arthrosis. Mild central canal stenosis with AP dimension of the thecal sac measuring 7 mm. Severe right with mild to moderate left foraminal narrowing. C7-T1: 4 mm anterolisthesis secondary to the chronic severe facet arthrosis. Mild intervertebral disc space narrowing with posterior annular disc bulge and disc space uncovering Central canal is patent. No significant neural foraminal narrowing. IMPRESSION: 1. Motion degraded exam without acute fracture, subluxation or bone marrow edema. 2. Normal signal of the cervical spinal cord. 3. No abnormal enhancement. 4. Discogenic degeneration and facet arthrosis as above with multilevel central canal and foraminal n arrowing. ACT 112: Negative or not required by law. The above report was generated using voice recognition software. It may contain grammatical, syntax o r spelling errors. Electronically signed by: Vernon Srinivasan M.D. 07/21/2024 2:16 PM
--- NOTE | 2024-07-21 14:25 | Magnetic Resonance Report ---
MR thoracic spine wo/w con HISTORY: 88 years-old Female Paraparesis of acute onset acute mid back pain without reported trauma. COMPARISON: Cervical spine MRI of same day, CT chest 07/20/2024, CT thoracic spine 08/17/2019. TECHNIQUE: Multiplanar multisequence MRI of the thoracic spine was obtained with and without IV contr ast. FINDINGS: The intrathoracic structures are better seen on yesterday's CTA of the chest. A urinary bladder pacnho ter is noted. Colonic diverticulosis. The paraspinal structures appear unremarkable. Normal signal wi thin the visualized thoracic spinal cord, study however is motion degraded. There is no abnormal enha ncement. No epidural fluid collections are seen. There are a few scattered vertebral body hemangiomat a noted. No acute fracture, subluxation, endplate erosion or marrow replacing process. There is a chronic T3 compression deformity with approximately 30% vertebral body height loss and 4 m m retropulsion. There is increased thoracic kyphosis centered at this level. Additionally, there is a posterior disc osteophyte complex at this interspace with moderate facet arthrosis. Mild central can al stenosis with AP dimension of the thecal sac measuring 7 mm with deformity upon the ventral aspect of the thoracic spinal cord. There is no additional significant central canal or foraminal narrowing identified. IMPRESSION: 1. Motion degraded exam without acute fracture, subluxation or significant bone marrow edema. 2. Chronic T3 compression deformity with 4 mm retropulsion. There is increased thoracic kyphosis at t his level with mild central canal stenosis resulting in deformity upon the ventral thoracic spinal co rd. 3. No abnormal enhancement. ACT 112: Negative or not required by law. The above report was generated using voice recognition software. It may contain grammatical, syntax o r spelling errors. Electronically signed by: Vernon Srinivasan M.D. 07/21/2024 2:23 PM
[2024-07-21 15:25] VITALS: BP 130/71; PULSE 75; RESP 16; TEMP 98.2; O2SAT 97
--- OUTSIDE RECORDS SUMMARY | 2024-07-22 02:03 | External Medical Summary | Summary of Care ---
Author Name Unknown Organization [facility] Address [address] [place] [address] Phone [phone] Care Team Providers Care Refrigeration Operator Name Role Phone Emily Mcdermott DO Primary Care Provider Reason for Visit * Reason Comments Outpatient Testing Encounter Details Date Type Department Care Team (Late st Contact Info) Description 03/14/2024 8:40 AM EDT Laboratory Laboratory [facility] [address] [place] [id number] [facility] [address] [place] [address] Stage 3a chronic kidney disease (HCC); Prediabetes; Screening for lipoid disorders Allergies Active Allergy Reactions Criticality Noted Date Comments Sulfacetamide Sodium-Sulfur Hives 03/14/20 12 documented as of this encounter (statuses as of 03/14/2024) Medications Medication Sig Dispensed Refills Start Date End Date Status vitamin e (AQUASOL E) 400 UNIT Capsule Take 1 Capsule by mouth in the morning. Active Calcium Carb-Cholecalciferol (CALCIUM + D3) 600-200 MG-UNIT per tablet Take 1 Tablet by mouth in the morning. Active Denosumab 60 MG/ML Subcutaneous Solution Prefilled Syringe Inject 60 mg under the skin once. Active [place]-3 Fish Oil 1200 MG Oral Capsule Take by mouth. Activ e Vitamin C 500 MG Oral Capsule Take by mouth. 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[place]), KA-type lesion R kovacs 05/2017 Osteoporosis without current pathological fractu re 04/27/2012 documented as of this encounter (statuses as of 03/14/2024) Resolved Problems Problem Noted Date Diagnosed Date Resolved Date Chronic kidney disease, stage 3a 02/21/2022 03/24/2022 Overview: Per CKD protocol Stage 3 chronic kidney disease 02/09/2022 02/24/2022 Overview: Per CKD protocol Hypertensive kidney disease with stage 3a chronic kidney disease 02/03/2021 08/19/2022 Compression fracture of T3 vertebra 09/28/2019 08/19/2022 Viral URI 08/31/2019 02/03/2020 Kidney disease, chronic, sta ge III (GFR 30-59 ml/min) 03/27/2018 06/25/2020 Overview: Per CKD protocol #1 - documented as of this encounter (statuses as of 03/14/2024) Immunizations Name Administration Dates Next Due COVID-19 mRNA, LNP-s, No Pre serve, 2-Dose Series (Moderna) 06/29/2021,10/07/2020,09/09/2020 COVID-19, MRNA-LNP, 23-24, P F, 30 MCG/0.3 mL, 12 YRS AND ABOVE, IM (PFIZER-Comirnaty) 05/12/2023 Diptheria/Tetanus (Adult) 11/26/2009,05/24/2000 Pneumococcal Conjugate Vacc, 13 Valent (Prevnar) 03/31/2015 Pneumococcal Polysaccharide PPV23 (Pneumovax) 04/30/2003 Season Influenza, Quad, PF, Adjuvanted, 65+ Yrs, IM (FLUAD) 04/27/2023,05/01/2020 Seasonal Influenza, PF, 6 M & above, IM , (FluLaval or Fluzone) 05/03/2018 Seasonal Influenza, Quadriva lent Hd (Fluzone Hd) 04/27/2022,05/01/2021 Seasonal Influenza, Quadriva lent, No Preserve, IM 05/20/2017,05/18/2016,05/30/2015 05/30/2016 Seasonal Influenza, Split, I IV3, With Preserve, Inj 04/25/2014,03/30/2013,05/07/2012,04/16,04/29/2010,06/28/2006 TDAP (age 10 and older)(Boostrix) 04/14/2017 Varicella Zoster Vaccine (Adult) 12/30/2008 Zoster Vaccine Recombinant (Shingrix) 08/03/2020 ,04/02/2020 documented as of this encounter Social History Tobacco Use Types Packs/Day Years Used Date Smoking Tobacco: Never Smokeless Tobacco: Never Alcohol Use Standard Drinks/Week Comments Not Currently 0.8 (1 standard drink = 0.6 oz p ure alcohol) rare PHQ-2 Answer Date Recorded PHQ Adult Total Score 0 02/18/2021 Hunger Vital Sign Answer Date Recorded Within the past 12 months, y ou worried that your food would run out before you got the money to buy more. Never true 08/24/19 24 Within the past 12 months, t he food you bought just didn't last and you didn't have money to get more. Never true 08/24/2023 Childcare Answer Date Recorded Do you feel overwhelmed with taking care of a child, family member or friend? No 08/24/2023 Does your family need help f inding childcare? (Household - for ages 0-17 years) Not on file 08/24/2023 Clothing Answer Date Recorded Have you been unable to get clothing when it was really needed? No 08/24/2023 Is your family able to get c lothes or diapers when needed? (Household - for ages 0-17 years) Not on file 08/24/2023 Personal Safety Answer Date Recorded Do you feel unsafe or have concerns for your saf ety? No 08/24/2023 Do you have concerns for you r family's safety? (Household - for ages 0-17 years) Not on file 08/24/2023 Utilities Answer Date Recorded Do you have trouble paying y our heating, water, or electric bill? No 08/24/2023 Is your family able to pay t he heat, water, or electric bill? (Household - for ages 0-17 years) Not on file 08/24/2023 Does your family have access to good internet? (Household - for ages 0-17 years) Not on file 08/24/2023 Employment Status Answer Date Recorded Are you unemployed or without regular income? No 08/24/2023 Does the household have a re gular source of income? (Household - for ages 0-17 years) Not on file 08/24/2023 Social Connections Answer Date Recorded How often do you feel lonely or isolated from th ose around you? Rarely 08/24/2023 Financial Resource Strain Answer Date R ecorded Do you have any trouble payi ng for your medications, or do you think you might in the future? No 08/24/2023 Does your family have troubl e paying for medicine? (Household - for ages 0-17 years) Not on file 08/24/2023 Transportation Needs Answer Date Record ed READ ONLY Do you have troubl e getting a ride to medical visits or work? Never True 08/24/2023 Does your family have a hard time getting a ride to doctors visits? (Household - for ages 0-17 years) Not on file 08/24/2023 Has lack of transportation k ept you from medical appointments, meetings, work, or from getting things needed for daily living? Check all that apply. (Adult - for ages 18 years and over) Not on file 08/24/2023 Do you (or your family) have trouble finding or paying for a ride (transportation)? (Household - for ages 0-17 years) Not on file 08/24/2023 Housing Stability Answer Date Recorded Do you currently live in a s helter or have no steady place to sleep at night? No 08/24/2023 READ ONLY Do you think you a re at risk of becoming homeless? No 08/24/2023 Does your family worry about paying for your home or becoming homeless? (Household - for ages 0-17 years) Not on file 0 08/24/2023 Are you homeless or worried that you might be in the future? (Adult - for ages 18 years and over) Not on file Are you (or your family) lebron eless or worried that you might be in the future? (Household - for ages 0-17 years) Not on file Food Insecurity Answer Date Recorded Do you need food for this week? No 08/24/2023 Are you able to get enough f ood for your family? (Household - for ages 0-17 years) Not on file 08/24/2023 Does your family need food t his week? (Household - for ages 0-17 years) Not on file 08/24/2023 Do you always have enough fo od for your family? (Household - for ages 0-17 years) Not on file 08/24/2023 Sex and Gender Information Value Date Recorded Sex Assigned at Female 11/16/2023 5:14 PM EDT Gender Identity Female 11/16/2023 5:14 PM EDT Sexual Orientation Straight 11/16/2023 5: 14 PM EDT Job Start Date Occupation Industry Not on file Not on file Not on file documented as of this encounter Plan of Treatment Upcoming Encounters Date Type Department Care Team (Late st Contact Info) Description 04/11/2024 10:30 AM EDT Imaging Radiology [address] [facility] [place] [address] 06/11/2024 10:00 AM EDT Office Visit Rheumatology [facility] [address] [place], [place] [address] Quincy Chau CRNP [address] [facility] [place] [address] 09/06/2024 2:00 PM EST Office Visit Neurology [facility] [address] [facility] [place] [address] Misty Hernandez CRNP [address] [place] [address] 09/09/2024 1:00 PM EST Office Visit Family Practice [facility] [address] [facility] [place], [place] [address] Emily Mcdermott DO [address] [facility] [address] [facility] [place] [address] 12/09/2024 9:45 AM EDT Office Visit Dermatology [facility] [address] [facility] [place] [address] Greg Sousa MD [address] [facility] [place] [address] Pending Results Name Type Priority Associated Diagnoses Date /Time PROTEIN/ CREATININE RATIO, URINE Lab Routine Stage 3a chronic kidney disease (HCC) 03/14/2024 8:36 AM EDT HEMOGLOBIN A1C Lab Routine Prediabetes 03/14/2024 8:36 AM EDT ALBUMIN / CREATININE RATIO, URINE Lab Routine Stage 3a chronic kidney disease (HCC) 03/14/2024 8:36 AM EDT LIPID PANEL WITH DIRECT LDL IF TG IS HIGH Lab Routine Screening for lipoid disorders 03/14/2024 8:36 AM EDT BASIC METABOLIC PANEL Lab Routine Stage 3a chronic kidney disease (HCC) 03/14/2024 8:36 AM EDT Health Maintenance Due Date Last Done Comments Depression Screening 02/18/2022 02/18/2021 Albumin/Creatinine Ratio 02/11/2023 02/11/2022 CKD PHOS USE SMARTSET 77625 02/11/2023 07/0 08/2021, 02/03/2020, 10/30/2018 HbA1c 02/11/2023 02/11/2022, 02/04/2021 COVID-19 Vaccine ( season) 2023 05/12/2023, 06/29/2021, 10/07/2020, Additional history exists CKD HGB USE SMARTSET 85390 02/23/202403/14, 02/22/2023, 02/11/2022, Additional history exists Influenza Vaccine (FLU shot) (#1) 2024 04/27/2023, 04/27/2022, 05/01/2021, Additional history exists DXA Scan 09/18/2025 09/18/2023, 08/16, 09/11/2019, Additional history exists DTaP,Tdap,and Td Vaccines (2 - Td or Tdap) 04/14/2027 04/14/2017, 11/26/2009, 05/24/2000 Pneumococcal Vaccine: 65+ Years Completed 03/31/2015, 04/30/2003 Zoster Vaccines Completed 08/03/2020, 03/15, 12/30/2008 VITAMIN D LEVEL ONCE IN A LIFETIME-USE SMARTSET# [id number] Completed 06/06/2023, 02/11/2022, 02/04/2021, Additional history exists HPV (Gardasil) Vaccine Aged Out No lo nger eligible based on patient's age to complete this topic Hepatitis B Vaccine Aged Out No longe r eligible based on patient's age to complete this topic MENINGOCOCCAL (MENACTRA/MENVEO) Aged Out No longer eligible based on patient's age to complete this topic documented as of this encounter Medical Devices Not on filedocumented as of this encounter Procedures Procedure Name Priority Date/Time Associated Diagnosis Comments HGB Routine 03/14/2024 8:36 AM EDT Stage 3a chronic kidney disease (HCC) documented in this encounter Results * HGB (03/14/2024 8:36 AM EDT) HGB 14.6 12.0 - 15.3 g/dL 03/14/2024 8:46 AM EDT [facility] 56-02 Blood Venous blood specimen / Unknown Venipuncture / Unknown 03/14/2024 8:36 AM EDT 03/14/2024 8:36 AM EDT Emily Mcdermott DO LAB BLOOD ORDER [facility] 56-[address] [place] [address] documented in this encounter Visit Diagnoses Diagnosis Stage 3a chronic kidney disease (HCC) Prediabetes Other abnormal glucose Screening for lipoid disorders documented in this encounter Care Teams Refrigeration Operator Relationship Specialty Start Date End Date Emily Mcdermott DO [address] [place] [address] PCP - General Family Medicine 03/19/18 documented as of this encounter
--- OUTSIDE RECORDS SUMMARY | 2024-07-22 02:03 | External Medical Summary ---
Author Name Unknown Address Unknown Organization [id number]:[facility] [place] [place] [address] Laboratory Report Ordering Provider Test Date Status BRAYDEN STAPLETON 06/07/2024 11:18:19 Final Observation Date Value Abnormality Reference (Units ) Status BUN 06/07/2024 11:18:19 31 Above high normal 6-20 (mg/dL) Final Creatinine 06/07/2024 11:18:19 1.2 Above high normal 0.5-1.0 (mg/dL) Final Glomerular filtration rate/1.73 sq M.predicted [Volume Rate/Area] in Serum, Plasma or Blood by Creatinine-based formula (CKD-EPI) 06/07/2024 11:18:19 46 Below low normal >=60 (mL/min) Final eGFR is calculated based on the CKD-EPI 2020 equation. Sodium 06/07/2024 11:18:19 140 135-146 (m mol/L) Final Potassium 06/07/2024 11:18:19 5.0 3.5-5.1 (m mol/L) Final Cl 06/07/2024 11:18:19 101 98-107 (mm ol/L) Final CO2 06/07/2024 11:18:19 27 22-32 (mmo l/L) Final Anion gap 06/07/2024 11:18:19 12 7-15 (mmol /L) Final Glucose 06/07/2024 11:18:19 104 70-120 (mg /dL) Final Calcium 06/07/2024 11:18:19 9.5 8.4-10.2 ( mg/dL) Final Performing Location [facility] [place] [address]
--- OUTSIDE RECORDS SUMMARY | 2024-07-22 02:03 | External Medical Summary ---
Author Name Unknown Address Unknown Organization K01[facility] [place] [address] [place] [address] Laboratory Report Ordering Provider Test Date Status BRAYDEN STAPLETON 03/14/2024 08:36:42 Final Normal: <150 mg/ g creatinine
High: 150-500 mg/g creatinine
Very High: >500 mg/g creatinine
Nephrotic: >3000 mg/g creatinine Observation Date Value Abnormality Reference (Units ) Status Protein/Creatinine [Ratio] in Urine 03/14/2024 08:36:42 260 Above high normal <150 (mg/g ) Final Protein, Urine 03/14/2024 08:36:42 13 (mg/dL) Final Creatinine, Urine 03/14/2024 08:36:42 50 (mg/dL) Final Performing Location [facility] [place] [address] [place] [address]
--- OUTSIDE RECORDS SUMMARY | 2024-07-22 02:03 | External Medical Summary | Summary of Care ---
Author Name Unknown Organization [facility] Address [address] [place] [address] Phone [phone] Care Team Providers Care Shaper Hand Name Role Phone Baldemar Emily Harman DO Primary Care Provider Reason for Visit * Reason Onset Date Comments Rheum Follow Up Follow up - FLACO Hamm Medication Administration prolia Medication Administration 06/11/2024 Prolia * Precert (Diagnostic Medical) (Within 30 days (routine)) - Authorized Specialty Diagnoses / Procedures Referred By Contac t Referred To Contact Diagnoses Age-related osteoporosis without current pathological fracture Procedures LA DENOSUMAB INJECTION [facility] [place] [place] [address] [facility] [employer] [place] [address] Referral ID Status Reason Start Date Expiration Date V isits Requested Visits Authorized [id number] Authorized Precert 05/16/2024 05/16/2025 2 2 Encounter Details Date Type Department Care Team (Late st Contact Info) Description 06/11/2024 10:00 AM EDT Office Visit Rheumatology [address] [place], [place] [address] [facility] [employer] [facility] [place] [address] Senile osteoporosis* Allergies Active Allergy Reactions Criticality Noted Date Comments Sulfacetamide Sodium-Sulfur Hives 03/14/20 12 documented as of this encounter (statuses as of 06/11/2024) Medications Medication Sig Dispensed Refills Start Date End Date Status vitamin e (AQUASOL E) 400 UNIT Capsule Take 1 Capsule by mouth in the morning. Active Calcium Carb-Cholecalcifer ol (CALCIUM + D3) 600-200 MG-UNIT per tablet Take 1 Tablet by mouth in the morning. Active Denosumab 60 MG/ML Subcutaneous Solution Prefilled Syringe Inject 60 mg under the skin once. Active [place]-3 Fish Oil 1200 MG Oral Capsule Take by mouth. Active Vitamin C 500 MG Oral Capsule Take by mouth. Active amLODIPine Besylate 2.5 MG Oral Tablet (Norvasc)Indicatio ns:HTN, goal below 140/90 TAKE 1 TABLET BY MOUTH EVERY DAY IN THE MORNING 90 Tablet 2 12/09/2023 Active Nirmatrelvir&Riton avir 300/100 20 x 150 MG & 10 x 100MG Oral Tablet Therapy Pack (Paxlovid (300/100)) Take 2 pink tablets of Nirmatrelvir and 1 white tablet of Ritonavir two times a day by mouth. 30 Tablet 04/01/2024 Discontinue d(Medicatio n List Clean Up) Hospital, Clinic, or Other Facility Administered Medication Ordered Dose Route Frequency Start Date End Date Status Denosumab (Prolia) subcut inj 60 mgIndications:Senile osteoporosis 60 mg SC ONCE 06/11/2024 06/11/2024 Ended documented as of this encounter (statuses as of 06/11/2024) Active Problems Problem Noted Date Diagnosed Date Memory changes 09/05/2023 Prediabetes 02/03/2021 Stage 3a chronic kidney disease 06/22/2020 Overview: Per CKD protocol - - HTN, goal below 140/90 08/31/2019 Senile osteoporosis 08/01/2017 Hx of nonmelanoma skin cancer 11/29/2012 Overview: 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[place]), KA-type lesion R kovacs 05/2017 Osteoporosis without current pathological fractu re 04/27/2012 documented as of this encounter (statuses as of 06/11/2024) Resolved Problems Problem Noted Date Diagnosed Date [...] as of this encounter (statuses as of 06/11/2024) Immunizations Name Administration Dates Next Due COVID-19 mRNA, LNP-s, No Pre serve, 2-Dose Series (Moderna) 06/29/2021,10/07/2020,09/09/2020 COVID-19, MRNA-LNP, 23-24, P F, 30 MCG/0.3 mL, 12 YRS AND ABOVE, IM (PFIZER-Comirnaty) 05/12/2023 Diptheria/Tetanus (Adult) 11/26/2009,05/24/2000 Pneumococcal Conjugate Vacc, 13 Valent (Prevnar) 03/31/2015 Pneumococcal Polysaccharide PPV23 (Pneumovax) 04/30/2003 Season Influenza, Quad, PF, Adjuvanted, 65+ Yrs, IM (FLUAD) 04/27/2023,05/01/2020 Seasonal Influenza Vac., MDV , IM, 0.5 mL (Fluzone) 04/25/2014,03/30/2013,05/07/2012,04/16,04/29/2010,06/28/2006 Seasonal Influenza, PF, 6 M & above, IM , (FluLaval or Fluzone) 05/03/2018 Seasonal Influenza, Quadriva lent Hd (Fluzone Hd) 04/27/2022,05/01/2021 Seasonal Influenza, Quadriva lent, No Preserve, IM 05/20/2017,05/18/2016,05/30/2015 05/30/2016 TDAP (age 10 and older)(Boostrix) 04/14/2017 Varicella Zoster Vaccine (Adult) 12/30/2008 Zoster Vaccine Recombinant (Shingrix) 08/03/2020 ,04/02/2020 documented as of this encounter Social History Tobacco Use Types Packs/Day Years Used Date Smoking Tobacco: Never Smokeless Tobacco: Never Tobacco Cessation:Counseling Given: Not Answered Alcohol Use Standard Drinks/Week Comments Not Currently [...] file Not on file Not on file Travel History Travel Start Travel End [place] 05/22/2024 05/29/2024 documented as of this encounter Last Filed Vital Signs Vital Sign Reading Time Taken Comments Blood Pressure - - Pulse - - Temperature 36.6 C (97.8 F) 06/11/2024 9:53 AM ED T Respiratory Rate - - Oxygen Saturation - - Inhaled Oxygen Concentration - - Weight 50.3 kg (111 lb) 06/11/2024 9:53 AM EDT Height - - Body Mass Index 19.66 09/05/2023 10:09 AM EST documented in this encounter Patient Instructions * Patient Instructions* Quincy Chau CRNP - 06/11/2024 10:12 AM EDT Medication Information: Prolia The following information was verbally provided to the patient and afterwards, a copy of the ACR medication guide was provided to supplement with more extensive information: Denosumab (Prolia) is a biologic medication used to prevent fragile bones, also known as osteoporosis, and bone fractures. It is available as an injection given twice a year along with vitamin D and calcium supplementation. The most common side effects observed are back pain, pain in hands and feet, and cystitis. More serious side effects include the increased risk of infections, osteonecrosis of the jaw, hypocalcemia, atypical femoral fractures, multiple vertebral fractures, and elevated cholesterol (rare) severe allergic reactions. Please make your physician aware if you are or planning to become , have kidney/liver damage, have current infection, any new cancer or malignancy, planning to get any vaccinations, or if you have new or changed medications on your medication list as these factors may impact your care plan. This medication may take up to 6-12 weeks to see an effect on your joints. For your safety, we will monitor you routinely through a series of blood work, dental exams, etc. For further inquiries, please refer to the medication information provided to you as well as your rheumatology care team. Vitamin D Level < 20 50,000 units twice weekly x 30 doses Level 20-30 50,000 units once weekly x 15 doses Level 30-35 800- 1,000 units QD (OTC) Level normal Level > 60 Provider referral Calcium (Post-Menopausal) Women 1,200 mg QD (600 mg BID) Men 1,000 mg PO (500 mg BID) Types of Calcium Calcium citrate Can be taken with or without food Calcium carbonate Absorbed better with meals Dietary Calcium Milk, cheese, yogurt, as well as green vegetables, such as kale and broccoli, oranges, beans, almonds documented in this encounter Progress Notes * Quincy Chau CRNP - 06/11/2024 9:52 AM EDT [facility] ([facility]): follow up Supervised by: Dr. Jovanni Muniz Previous Visit Plan from 06/06/2023 reviewed. Reason for visit: Patient seen today for further follow-up/evaluation of osteoporosis. She is due for 13th Prolia today. Receive Prolia in the past with no adverse effects. Denies interval falls or fractures. Denies dental concerns or thigh pains. Denies recent illnesses or ABT. Reports her husbandpassed away this past November, offered condolences. No concerns today. Bone Health Summary: Risks: Falls since last [facility] visit: no Personal History of Fx since last [facility] Visit: no Prevention: Exercise : 3 or more times weekly: Yes Nutrition: eats calcium rich foods, Yes Gait: unsteady with walking, No, use of cane/walker, No, Calcium and Vitamin D supplements in adequate doses: Yes Current Smoker: No Chronic Glucocorticoid use: No Rheumatoid Arthritis: No Alcohol 3 or more per day: No ROS: . Constitutional: normal . Head normal . Eyes: dryness . Ears, nose, throat, mouth: normal . Cardiovascular: normal . Respiratory: normal . Gastrointestinal: normal . Musculoskeletal: normal . Neurologic: normal . Skin: normal . Psychiatric: normal . Endocrine: normal . Hematologic/lymphatic: normal . Allergic/immunologic: normal . Genitourinary: normal All other ROS reviewed and negative. Pertinent positives listed in HPI. Medications: Current Outpatient Medications Medication Sig Dispense Refill vitamin e (AQUASOL E) 400 UNIT Capsule Take 1 Capsule by mouth in the morning. Calcium Carb-Cholecalciferol (CALCIUM + D3) 600-200 MG-UNIT per tablet Take 1 Tablet by mouth in the morning. Denosumab 60 MG/ML Subcutaneous Solution Prefilled Syringe Inject 60 mg under the skin once. [place]-3 Fish Oil 1200 MG Oral Capsule Take by mouth. Vitamin C 500 MG Oral Capsule Take by mouth. amLODIPine Besylate 2.5 MG Oral Tablet (Norvasc) TAKE 1 TABLET BY MOUTH EVERY DAY IN THE MORNING 90Tablet 2 Nirmatrelvir&Ritonavir 300/100 20 x 150 MG & 10 x 100MG Oral Tablet Therapy Pack (Paxlovid (300/100)) Take 2 pink tablets of Nirmatrelvir and 1 white tablet of Ritonavir two times a day by mouth. 30 Tablet 0 Current Facility-Administered Medications Medication Dose Route Frequency Provider Last Rate Last Admin Denosumab (Prolia) subcut inj 60 mg 60 mg Subcutaneous Once Social History: Social History Tobacco Use Smoking status: Never Smokeless tobacco: Never Vaping Use Vaping status: Never Used Substance Use Topics Alcohol use: Not Currently Alcohol/week: 0.8 standard drinks of alcohol Types: 1 5 oz of wine per week Comment: rare Drug use: No PHYSICAL EXAM: General appearance: NAD Eyes: Normal Heme/Lymph: goiter: No Musculoskeletal: Kyphosis Yes Heart: normal Lungs: normal Neuro: no focal findings Diagnostic Testing: Results of labs and DXA were reviewed and discussed with the patient. Labs: 06/07/2024 Satisfactory: 25-OH Vitamin D 39 calcium 9.5 creatinine 1.2 DXA Result: 09/18/2023 Lumbar spine: 0.942 gms/cm2 T-score: -1.0 Left femoral neck: 0.561 gms/cm2 T-score: -2.6 Assessment: (M81.0) Senile osteoporosis (primary encounter diagnosis) Plan: 25-HYDROXY VITAMIN D, CREATININE, CALCIUM She received her 13th prolia injection today and tolerated well. No signs or symptoms and muscle strength 12/16. Labs are up to date. Will continue to monitor DXA every 2 year. Next DEXA due in September,. I recommend continuation of a healthy diet with calcium rich foods as well as calcium and vitamin D supplement. Patient encouraged to participate in weight-bearing exercise (i.e., walking). Discussed fall avoidance measures and recommend fall prevention. Although falls are never planned, I discussed with the patient the goal of therapy to slow down / stop the process of osteoporosis from progressing. Patient voiced understanding of the discussion. Discussed the above in detail with the patient. All questions were answered. Plan: The following items are ordered or are in progress: 1. Education: Osteoporosis education was provided by the [facility] team (topics included disease process, DXA, calcium/vitamin D, osteoporosis medications - including administration instructions and risks/benefits, weight bearing exercise, fall prevention/safety). The patient was provided with [facility] patient education instruction sheet(s): Prolia. 2. Prevention: . Eye Examination recommended annually, as good vision may help to prevent falls . Exercise recommended: standing, walking, light lifting . Fall Prevention/Safety Education recommended and discussed . Continue calcium rich foods (goal of 3 servings daily) 3. Osteoporosis Medications : Prolia 60 mg subcutaneously was administered today. The patient tolerated the injection well. Continue Calcium 600mg/Vitamin D 400 IU twice daily Continue Prolia 60mg subcutaneous injection every 6 months 4. Bone Density Testing: due 2 year(s) from previous 5. Laboratory: Yearly 25-OH Vitamin D calcium creatinine 6. Followup: Return in at least 6 months plus one day on Nurse Schedule for Prolia 7. Discussed the above in detail with the patient. All questions answered. 8. Contact clinic with any questions or concerns [facility] Team The patient was discussed with me. I agree with the findings and plan as documented by Quincy KING in this note. Jovanni Muniz MD Rheumatology Department documented in this encounter Nursing Notes * Maricarmen Dumont LPN - 06/11/2024 9:53 AM EDT Chief Complaint Patient presents with Rheum Follow Up Follow up - [facility] Medication Administration prolia Patient denies being on any antibiotics, no current infections, no upcoming surgeries or dental procedures, no open wounds or sores, no current fractures. documented in this encounter Plan of Treatment Upcoming Encounters Date Type Department Care Team (Late st Contact Info) Description 09/06/2024 2:00 PM EST Office Visit Neurology [facility] [address] [facility] [place] [address] Misty Hernandez CRNP [address] [place] [address] 09/09/2024 1:00 PM EST Office Visit Family Practice [facility] [place] [address] [facility] [place] [address] Emily Mcdermott DO [address] [facility] [place] [address] 12/09/2024 9:45 AM EDT Office Visit Dermatology [facility] [address] [facility] [place] [address] Greg Sousa MD [address] [facility] [place] [address] 12/11/2024 1:30 PM EDT Nurse Only Rheumatology [address] [place] [address] Pf, Nurse Rheum [facility] [place] [address] Scheduled Orders Name Type Priority Associated Diagnoses Orde r Schedule 25-HYDROXY VITAMIN D Lab Routine Senile osteoporosis Expected: 05/14/2025, Expires: 06/11/2025 CREATININE Lab Routine Senile osteoporosis Expected: 05/14/2025, Expires: 06/11/2025 CALCIUM Lab Routine Senile osteoporosis Expected: 05/14/2025, Expires: 06/11/2025 Health Maintenance Due Date Last Done Comments Adult Wellness Visit 11/24/2003 Depression Screening 02/18/2022 02/18/2021 COVID-19 Vaccine ( season) 2024 05/12/2023, 06/29/2021, 10/07/2020, Additional history exists Influenza Vaccine (FLU shot) (#1) 2024 04/27/2023, 04/27/2022, 05/01/2021, Additional history exists Albumin/Creatinine Ratio 03/14/2025 03/14/2024, 070 08/2021 CKD HGB USE SMARTSET 36476 03/14/202503/14, 02/22/2023, 02/11/2022, Additional history exists CKD PHOS USE SMARTSET 44836 03/14/2025 08/0 08/2023, 02/11/2022, 02/03/2020, Additional history exists HbA1c 03/14/2025 03/14/2024, 0708/2021, 02/04/2021 DXA Scan 09/18/2025 09/18/2023, 08/16, 09/11/2019, Additional history exists DTap/Tdap Vaccines (2 - Td or Tdap) 04/14/2027 04/14/2017, 11/26/2009, 05/24/2000 Pneumococcal Vaccine: 65+ Years Completed 03/31/2015, 04/30/2003 Zoster Vaccines Completed 08/03/2020, 03/15, 12/30/2008 VITAMIN D LEVEL ONCE IN A LIFETIME-USE SMARTSET# [id number] Completed 06/07/2024, 06/06/2023, 02/11/2022, Additional history exists HPV (Gardasil) Vaccine Aged [...] Not on filedocumented as of this encounter Visit Diagnoses Diagnosis Senile osteoporosis- Primary documented in this encounter Administered Medications Inactive Administered Medications - up to 3 most recent administrations Medication Order MAR Action Action Date Dose Rate Site Denosumab (Prolia) subcut inj 60 mg 60 mg, Subcutaneous, ONCE, On Mon06/11/24 at 1000, For 1 dose Given 06/11/2024 10:07 AM EDT 60 mg Arm Left Upper documented in this encounter Care Teams Shaper Hand Relationship Specialty Start Date End Date Emily Mcdermott DO [address] [place] [address] PCP - General Family Medicine 03/19/18 documented as of this encounter
--- OUTSIDE RECORDS SUMMARY | 2024-07-22 02:03 | External Medical Summary | Summary of Care ---
Author Name Unknown Organization [facility] Address [address] [place] [address] Phone [phone] Care Team Providers Care Fullerette Name Role Phone Emily Mcdermott DO Primary Care Provider Reason for Visit * Reason Comments Outpatient Testing Encounter Details Date Type Department Care Team (Late st Contact Info) Description 06/07/2024 11:20 AM EDT Laboratory Laboratory [facility] [address] [place] [id number] [facility] [address] [place] [address] Screening for lipoid disorders; Stage 3a chronic kidney disease (HCC); HTN, goal below 140/90; Senile osteoporosis Allergies Active Allergy Reactions Criticality Noted Date Comments Sulfacetamide Sodium-Sulfur Hives 03/14/20 12 documented as of this encounter (statuses as of 06/07/2024) Medications Medication Sig Dispensed Refills Start Date End Date Status vitamin e (AQUASOL E) 400 UNIT Capsule Take 1 Capsule by mouth in the morning. Active Calcium Carb-Cholecalcifero l (CALCIUM + D3) 600-200 MG-UNIT per tablet Take 1 Tablet by mouth in the morning. Active Denosumab 60 MG/ML Subcutaneous Solution Prefilled Syringe Inject 60 mg under the skin once. Active [place]-3 Fish Oil 1200 MG Oral Capsule Take by mouth. Active Vitamin C 500 MG Oral Capsule Take by mouth. Active amLODIPine Besylate 2.5 MG Oral Tablet (Norvasc)Indication s:HTN, goal below 140/90 TAKE 1 TABLET BY MOUTH EVERY DAY IN THE MORNING 90 Tablet 2 12/09/2023 Active Nirmatrelvir&[place]ona vir 300/100 20 x 150 MG & 10 x 100MG Oral Tablet Therapy Pack (Paxlovid (300/100)) Take 2 pink tablets of Nirmatrelvir and 1 white tablet of Ritonavir two times a day by mouth. 30 Tablet 04/01/2024 Active Hospital, Clinic, or Other Facility Administered Medication Ordered Dose Route Frequency Start Date End Date Status Denosumab (Prolia) subcut inj 60 mgIndications:Senile osteoporosis 60 mg SC ONCE 06/11/2024 06/11/2024 Active documented as of this encounter (statuses as of 06/07/2024) Active Problems Problem Noted Date Diagnosed Date [...] as of this encounter (statuses as of 06/07/2024) Resolved Problems Problem Noted Date Diagnosed Date [...] as of this encounter (statuses as of 06/07/2024) Immunizations Name Administration Dates Next Due COVID-19 [...] No 08/24/2023 Does the household have a [facility] source of income? (Household - for ages [...] 05/22/2024 05/29/2024 documented as of this encounter Plan of Treatment Upcoming Encounters Date Type Department Care Team (Late st Contact Info) Description 06/11/2024 10:00 AM EDT Office Visit Rheumatology [facility] [place] [address] [place] [address] Qiuncy Chau CRNP [facility] [place] [address] 09/06/2024 2:00 PM EST Office Visit Neurology [facility] [address] [facility] [place] [address] Mitsy Hernandez CRNP [address] [place] [address] 09/09/2024 1:00 PM EST Office Visit Family Practice [facility] [address] [facility] [place] [address] Emily Mcdermott, [address] [facility] [place] [address] 12/09/2024 9:45 AM EDT Office Visit Dermatology [facility] [address] [facility] [place] [address] Greg Sousa MD [address] [facility] [place] [address] Pending Results Name Type Priority Associated Diagnoses Date /Time LIPID PANEL WITH DIRECT LDL IF TG IS HIGH Lab Routine Screening for lipoid disorders 06/07/2024 11:18 AM EDT BASIC METABOLIC PANEL Lab Routine Stage 3a chronic kidney disease (HCC) HTN, goal below 140/90 06/07/2024 11:18 AM EDT 25-HYDROXY VITAMIN D Lab Routine Senile osteoporosis 06/07/2024 11:18 AM EDT Health Maintenance Due Date Last Done Comments Adult Wellness Visit 11/24/2003 Depression Screening 02/18/2022 02/18/2021 COVID-19 Vaccine ( season) 2024 05/12/2023, 06/29/2021, 10/07/2020, Additional history exists Influenza Vaccine (FLU shot) (#1) 2024 04/27/2023, 04/27/2022, 05/01/2021, Additional history exists Albumin/Creatinine Ratio 03/14/2025 03/14/2024, 07/0 08/2021 CKD HGB USE SMARTSET 61801 03/14/202503/14, 02/22/2023, 02/11/2022, Additional history exists CKD PHOS USE SMARTSET [id number] 03/14/2025 08/0 08/2023, 02/11/2022, 02/03/2020, Additional history exists HbA1c 03/14/2025 03/14/2024, 07/0 08/2021, 02/04/2021 DXA Scan 09/18/2025 09/18/2023, 08/16, 09/11/2019, Additional history exists DTap/Tdap Vaccines (2 - Td or Tdap) 04/14/2027 04/14/2017, 11/26/2009, 05/24/2000 Pneumococcal Vaccine: 65+ Years Completed 03/31/2015, 04/30/2003 Zoster Vaccines Completed 08/03/2020, 03/15, 12/30/2008 VITAMIN D LEVEL ONCE IN A LIFETIME-USE SMARTSET# [id number] Completed 06/06/2023, 02/11/2022, 02/04/2021, Additional history exists [...] as of this encounter Visit Diagnoses Diagnosis Screening for lipoid disorders Stage 3a chronic kidney disease (HCC) HTN, goal below 140/90 Unspecified essential hypertension Senile osteoporosis documented in this encounter Care Teams Fullerette Relationship Specialty Start Date End Date Emily Mcdermott DO [address] [place] [address] PCP - General Family Medicine 03/19/18 documented as of this encounter
--- OUTSIDE RECORDS SUMMARY | 2024-07-22 02:03 | External Medical Summary ---
Author Name Unknown Address Unknown Organization K01:[facility] [address] [facility] [address] Laboratory Report Ordering Provider Test Date Status BRAYDEN STAPLETON 06/07/2024 11:18:19 Final Observation Date Value Abnormality Reference (Units ) Status Triglyceride 06/07/2024 11:18:19 123 <=174 ( mg/dL) Final Triglyceride Reference Range s (mg/dL):
<150 Acceptable
150-174 Borderline high
175-499 High
>=500 Very high Cholesterol 06/07/2024 11:18:19 205 Above high normal <200 (mg/dL) Final Total Cholesterol Reference Ranges (mg/dL):
<200 Desirable
200-239 Borderline high
>=240 High HDL 06/07/2024 11:18:19 79 >49 (mg/dL ) Final HDL Cholesterol Reference Ra nges (mg/dL):
>=60 High (Desirable)
<50 Low (Undesirable) For Females
<40 Low (Undesirable) For Males NON-HDL CHOLESTEROL 06/07/2024 11:18:19 126 <=159 (mg/dL) Final Non-HDL Cholesterol Referenc e Range (mg/dL):
<100 Target level for high risk ASCVD patient
<130 Optimal for general population
130-159 Near optimal for general population
160-189 Borderline High
190-219 High
>=220 Very High LDL, (calculated) 06/07/2024 11:18:19 101 <= 129 (mg/dL) Final LDL Cholesterol Reference Ra nges (mg/dL):
<70 Target level for high risk ASCVD patient
<100 Optimal for general population
100-129 Near optimal for general population
130-159 Borderline high
160-189 High
>=190 Very high Performing Location [facility] [address] [facility] [address]
--- OUTSIDE RECORDS SUMMARY | 2024-07-22 02:03 | External Medical Summary | Summary of Care ---
Author Name Unknown Organization [facility] Address [address] [facility] [address] Phone [phone] Care Team Providers Care Marketing Support Coordinator Name Role Phone Baldemar Diaz Ghazal Primary Care Provider Encounter Details Date Type Department Care Team (Late st Contact Info) Description 03/11/2024 Orders Only PATIENT PORTAL DO NOT DELETE THIS DEPT USED BY [place] [id number] Allergies Active Allergy Reactions Criticality Noted Date Comments Sulfacetamide Sodium-Sulfur Hives 03/14/20 12 documented as of this encounter (statuses as of 03/11/2024) Medications Medication Sig Dispensed Refills Start Date End Date Status vitamin e (AQUASOL E) 400 UNIT Capsule Take 1 Capsule by mouth in the morning. Active Calcium Carb-Cholecalciferol (CALCIUM + D3) 600-200 MG-UNIT per tablet Take 1 Tablet by mouth in the morning. Active Denosumab 60 MG/ML Subcutaneous Solution Prefilled Syringe Inject 60 mg under the skin once. Active [place]-3 Fish Oil 1200 MG Oral Capsule Take by mouth. Activ e Vitamin C 500 MG Oral Capsule Take by mouth. 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 [place] [address] Quincy Chau CRNP [address] [facility] [place] [address] 09/06/2024 2:00 PM EST Office Visit Neurology [facility] [address] [place] [address] Misty Hernandez CRNP [address] [place] [address] 09/09/2024 1:00 PM EST Office Visit Family Practice [facility] [address] [place] [address] Emily Mcdermott, [address] [facility] [place] [address] 12/09/2024 9:45 AM EDT Office Visit Dermatology [facility] [address] [place] [address] Greg Sousa MD [address] [place] [address] Health Maintenance Due Date Last Done Comments Depression Screening 02/18/2022 02/18/2021 Albumin/Creatinine Ratio 02/11/2023 02/11/2022 CKD PHOS USE SMARTSET 54214 02/11/2023 07/0 08/2021, 02/03/2020, 10/30/2018 HbA1c 02/11/2023 02/11/2022, 02/04/2021 COVID-19 Vaccine ( season) 2023 05/12/2023, 06/29/2021, 10/07/2020, Additional history exists CKD HGB USE SMARTSET 70730 02/23/202402/22, 02/11/2022, 02/18/2021, Additional history exists Influenza Vaccine (FLU shot) (#1) 2024 04/27/2023, 04/27/2022, 05/01/2021, Additional history exists DXA Scan 09/18/2025 09/18/2023, 08/16, 09/11/2019, Additional history exists DTaP,Tdap,and Td Vaccines (2 - Td or Tdap) 04/14/2027 04/14/2017, 11/26/2009, 05/24/2000 Pneumococcal Vaccine: 65+ Years Completed 03/31/2015, 04/30/2003 Zoster Vaccines Completed 08/03/2020, 03/15, 12/30/2008 VITAMIN D LEVEL ONCE IN A LIFETIME-USE SMARTSET# [id number] Completed 06/06/2023, 02/11/2022, 02/04/2021, Additional history exists [...] Not on filedocumented as of this encounter Care Teams Marketing Support Coordinator Relationship Specialty Start Date End Date Eimly Mcdermott DO [address] [place] [address] PCP - General Family Medicine 03/19/18 documented as of this encounter
--- OUTSIDE RECORDS SUMMARY | 2024-07-22 02:03 | External Medical Summary ---
Author Name Unknown Address Unknown Organization [id number][place] [place] [address] [facility] [address] [facility] [address] Laboratory Report Ordering Provider Test Date Status BRAYDEN STAPLETON 03/14/2024 08:36:42 Final Observation Date Value Abnormality Reference (Units ) Status HbA1C 03/14/2024 08:36:42 5.8 Above high normal 4. 0-5.6 (%) Final The use of HbA1c to monitor glycemic status is based on normal hemoglobin and HbA composition. This test should not be used in patients with abnormal hemoglobin that affects the half life of the red blood cell or the in vivo glycation rates. Glucose, estimated average 03/14/2024 08:36:42 120 <126 (mg/dL) Final Performing Location [facility] [place] [address] [facility] [address]
--- OUTSIDE RECORDS SUMMARY | 2024-07-22 02:03 | External Medical Summary ---
Author Name Unknown Address Unknown Organization [id number]:[facility] [place] [address] [place] [address] Laboratory Report Ordering Provider Test Date Status BRAYDEN STAPLETON 03/14/2024 08:36:42 Final Normal: <30 mg/g creatinine< br/>High: 30-300 mg/g creatinine
Very High: >300 mg/g creatinine
Nephrotic: >2200 mg/g creatinine Observation Date Value Abnormality Reference (Units ) Status Albumin, Urine 03/14/2024 08:36:42 5.00 (mg/dL) Final Creatinine, Urine 03/14/2024 08:36:42 50 (mg/dL) Final Albumin/Creatinine [Mass Ratio] in Urine 03/14/2024 08:36:42 100 Above high normal <30 (mg/g Creat) Final Performing Location [facility] [place] - [address] [place] [address]
--- OUTSIDE RECORDS SUMMARY | 2024-07-22 02:03 | External Medical Summary ---
Author Name Unknown Address Unknown Organization [id number]:[facility] [place] [address] Laboratory Report Ordering Provider Test Date Status BRAYDEN STAPLETON 03/14/2024 08:36:42 Final Observation Date Value Abnormality Reference (Units ) Status Phosphate 03/14/2024 08:36:42 3.1 2.5-4.8 (m g/dL) Final Performing Location [facility] [place] [address]
--- OUTSIDE RECORDS SUMMARY | 2024-07-22 02:03 | External Medical Summary ---
Author Name Unknown Address Unknown Organization [id number]:[facility] [place] [address] [place] [address] Laboratory Report Ordering Provider Test Date Status DAMON GARZA 06/07/2024 11:18:19 Final Deficient: <20 ng/mL
Ins ufficient: 20-29 ng/mL
Recommended/Optimum:30-50 ng/mL

Vitamin D intoxication is rare. If suspicious of Vitamin D toxicity, evaluation of serum Calcium and PTH is recommended. Observation Date Value Abnormality Reference (Units ) Status 25-OH Vitamin D total 06/07/2024 11:18:19 39 >19 (ng/mL) Final Performing Location [facility] [place] [address] [place] [address]
--- OUTSIDE RECORDS SUMMARY | 2024-07-22 02:03 | External Medical Summary ---
Author Name Unknown Address Unknown Organization [id number]:[facility] [place] [address] Laboratory Report Ordering Provider Test Date Status BRAYDEN STAPLETON 03/14/2024 08:36:42 Final Observation Date Value Abnormality Reference (Units ) Status Hemoglobin 03/14/2024 08:36:42 14.6 12.0-15.3 (g/dL) Final Performing Location [facility] [place] [address]
--- OUTSIDE RECORDS SUMMARY | 2024-07-22 02:03 | External Medical Summary | Summary of Care ---
Author Name Unknown Organization [facility] Address [address] [place] [address] Phone [phone] Care Team Providers Care Outside Parts Salesman Name Role Phone Emily Mcdermott DO Primary Care Provider Reason for Visit * Reason Onset Date Comments Advice 12/15/2023 Encounter Details Date Type Department Care Team (Late st Contact Info) Description 12/15/2023 Telephone Family Practice [facility] [address] [place] [address] Emily Mcdermott DO [address] [facility] [place] [address] Advice Allergies Active Allergy Reactions Criticality Noted Date Comments Sulfacetamide Sodium-Sulfur Hives 03/14/20 12 documented as of this encounter (statuses as of 03/15/2024) Medications Medication Sig Dispensed Refills Start Date End Date Status vitamin e (AQUASOL E) 400 UNIT Capsule Take 1 Capsule by mouth in the morning. Active Calcium Carb-Cholecalciferol (CALCIUM + D3) 600-200 MG-UNIT per tablet Take 1 Tablet by mouth in the morning. Active Denosumab 60 MG/ML Subcutaneous Solution Prefilled Syringe Inject 60 mg under the skin once. Active [place]-3 Fish Oil 1200 MG Oral Capsule Take by mouth. Activ e Vitamin C 500 MG Oral Capsule Take by mouth. 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 Annual Wellness Visit If Acute Visit Type is needed, were surrounding clinics offered to patient (Yes/No)? N/A Was patient offered appointments with other available providers (Yes/No)? Yes See Call Details? (Yes or No): Would like to be seen at [facility] locations. documented in this encounter Plan of Treatment Upcoming Encounters Date Type Department Care Team (Late st Contact Info) Description 04/11/2024 10:30 AM EDT Imaging Radiology [address] 132 [facility] [place] [address] 06/11/2024 10:00 AM EDT Office Visit Rheumatology [address] [place] [address] Quincy Chau, CHRISTINE 2520 [facility] [place], [place] [address] 09/06/2024 2:00 PM EST Office Visit Neurology [facility] [address] [place] [address] Misty Hernandez CRNP [address] [place] [address] 09/09/2024 1:00 PM EST Office Visit Family Practice [facility] [address] [facility] [place] [address] Emily Mcdermott DO 200 [facility] [place], [place] [address] 12/09/2024 9:45 AM EDT Office Visit Dermatology [facility] 200 [facility] [place], [place] [address] Greg Sousa MD 200 [facility] [place], [place] [address] Health Maintenance Due Date Last Done Comments Depression Screening 02/18/2022 02/18/2021 COVID-19 Vaccine ( season) 2023 05/12/2023, 06/29/2021, 10/07/2020, Additional history exists Influenza Vaccine (FLU shot) (#1) 2024 04/27/2023, 04/27/2022, 05/01/2021, Additional history exists Albumin/Creatinine Ratio 03/14/2025 03/14/2024, 08/2021 CKD HGB USE SMARTSET 30441 03/14/202503/14, 02/22/2023, 02/11/2022, Additional history exists CKD PHOS USE SMARTSET 61454 03/14/2025 080 08/2023, 02/11/2022, 02/03/2020, Additional history exists HbA1c 03/14/2025 03/14/2024, 08/2021, 02/04/2021 DXA Scan 09/18/2025 09/18/2023, 08/16, 09/11/2019, Additional history exists DTaP,Tdap,and Td Vaccines (2 - Td or Tdap) 04/14/2027 04/14/2017, 11/26/2009, 05/24/2000 Pneumococcal Vaccine: 65+ Years Completed 03/31/2015, 04/30/2003 Zoster Vaccines Completed 08/03/2020, 03/15, 12/30/2008 VITAMIN D LEVEL ONCE IN A LIFETIME-USE SMARTSET# [id number] Completed 06/06/2023, 02/11/2022, 02/04/2021, Additional history exists [...] filedocumented as of this encounter Care Teams Outside Parts Salesman Relationship Specialty Start Date End Date Emily Mcdermott DO [address] [place] [address] PCP - General Family Medicine 03/19/18 documented as of this encounter
--- OUTSIDE RECORDS SUMMARY | 2024-07-22 02:03 | External Medical Summary ---
Author Name Unknown Address Unknown Organization [id number]:[place] [place] [address] [facility] [address] Laboratory Report Ordering Provider Test Date Status BRAYDEN STPALETON 03/14/2024 08:36:42 Final Observation Date Value Abnormality Reference (Units ) Status Triglyceride 03/14/2024 08:36:42 90 <=174 ( mg/dL) Final Triglyceride Reference Range s (mg/dL):
<150 Acceptable
150-174 Borderline high
175-499 High
>=500 Very high Cholesterol 03/14/2024 08:36:42 214 Above high normal <200 (mg/dL) Final Total Cholesterol Reference Ranges (mg/dL):
<200 Desirable
200-239 Borderline high
>=240 High HDL 03/14/2024 08:36:42 86 >49 (mg/dL ) Final HDL Cholesterol Reference Ra nges (mg/dL):
>=60 High (Desirable)
<50 Low (Undesirable) For Females
<40 Low (Undesirable) For Males NON-HDL CHOLESTEROL 03/14/2024 08:36:42 128 <=159 (mg/dL) Final Non-HDL Cholesterol Referenc e Range (mg/dL):
<100 Target level for high risk ASCVD patient
<130 Optimal for general population
130-159 Near optimal for general population
160-189 Borderline High
190-219 High
>=220 Very High LDL, (calculated) 03/14/2024 08:36:42 110 <= 129 (mg/dL) Final LDL Cholesterol Reference Ra nges (mg/dL):
<70 Target level for high risk ASCVD patient
<100 Optimal for general population
100-129 Near optimal for general population
130-159 Borderline high
160-189 High
>=190 Very high Performing Location [facility] [place] [address] [facility] [address]
--- OUTSIDE RECORDS SUMMARY | 2024-07-22 02:03 | External Medical Summary | Summary of Care ---
Author Name Unknown Organization [facility] Address [address] [place] [address] Phone [phone] Care Team Providers Care Print Press Operator Name Role Phone Baldemar Emily Harman DO Primary Care Provider Reason for Visit * Reason Comments Outpatient Testing Encounter Details Date Type Department Care Team (Late st Contact Info) Description 03/14/2024 8:50 AM EDT Laboratory Laboratory [facility] [address] [place] [id number] [facility] [address] [place] [address] Arrived Allergies Active Allergy Reactions Criticality Noted Date [...] 60 mg under the skin once. Active [place]-3 Fish Oil 1200 MG Oral Capsule Take [...] 08/24/2023 Does the household have a re lar source of income? (Household - for ages [...] Description 04/11/2024 10:30 AM EDT Imaging Radiology [address] 132 [facility] [place] [address] 06/11/2024 10:00 AM EDT Office Visit Rheumatology [place] [address] [facility] [place] [address] Quincy Chau CRNP [address] [facility] [place] [address] 09/06/2024 2:00 PM EST Office Visit Neurology [facility] [address] [place] [address] Misty Hernandez CRNP [address] [place] [address] 09/09/2024 1:00 PM EST Office Visit Family Practice [facility] [address] [place] [address] Emily Mcdermott DO 200 [facility] [place], [place] [address] 12/09/2024 9:45 AM EDT Office Visit Dermatology [facility] [address] [place] 200 [place] [address] Greg Sousa MD 200 [facility] [place] [address] Health Maintenance Due Date Last Done Comments Depression Screening 02/18/2022 02/18/2021 Albumin/Creatinine Ratio 02/11/2023 02/11/2022 CKD PHOS USE SMARTSET 70577 02/11/2023 07/0 08/2021, 02/03/2020, 10/30/2018 HbA1c 02/11/2023 02/11/2022, 02/04/2021 COVID-19 Vaccine ( season) 2023 05/12/2023, 06/29/2021, 10/07/2020, Additional history exists CKD HGB USE SMARTSET 76834 02/23/202403/14, 02/22/2023, 02/11/2022, Additional history exists Influenza Vaccine (FLU shot) (#1) 2024 04/27/2023, 04/27/2022, 05/01/2021, Additional history exists DXA Scan 09/18/2025 09/18/2023, 08/16, 09/11/2019, Additional history exists DTaP,Tdap,and Td Vaccines (2 - Td or Tdap) 04/14/2027 04/14/2017, 11/26/2009, 05/24/2000 Pneumococcal Vaccine: 65+ Years Completed 03/31/2015, 04/30/2003 Zoster Vaccines Completed 08/03/2020, 03/15, 12/30/2008 VITAMIN D LEVEL ONCE IN A LIFETIME-USE SMARTSET# 37787 Completed 06/06/2023, 02/11/2022, 02/04/2021, Additional history exists [...] filedocumented as of this encounter Care Teams Print Press Operator Relationship Specialty Start Date End Date Emily Mcdermott DO [address] [place] [address] PCP - General Family Medicine 03/19/18 documented as of this encounter
--- OUTSIDE RECORDS SUMMARY | 2024-07-22 02:03 | External Medical Summary ---
Author Name Unknown Address Unknown Organization K09:[facility] [place] [address] Laboratory Report Ordering Provider Test Date Status BRAYDEN STAPLETON 03/14/2024 08:36:42 Final Observation Date Value Abnormality Reference (Units ) Status BUN 03/14/2024 08:36:42 22 Above high normal 6-20 (mg/dL) Final Creatinine 03/14/2024 08:36:42 1.0 0.5-1.0 (mg/dL) Final Glomerular filtration rate/1.73 sq M.predicted [Volume Rate/Area] in Serum, Plasma or Blood by Creatinine-based formula (CKD-EPI) 03/14/2024 08:36:42 55 Below low normal >=60 (mL/min) Final eGFR is calculated based on the CKD-EPI 2020 equation. Sodium 03/14/2024 08:36:42 141 135-146 (m mol/L) Final Potassium 03/14/2024 08:36:42 3.9 3.5-5.1 (m mol/L) Final Cl 03/14/2024 08:36:42 104 98-107 (mm ol/L) Final CO2 03/14/2024 08:36:42 25 22-32 (mmo l/L) Final Anion gap 03/14/2024 08:36:42 12 7-15 (mmol /L) Final Glucose 03/14/2024 08:36:42 108 70-120 (mg /dL) Final Calcium 03/14/2024 08:36:42 8.6 8.4-10.2 ( mg/dL) Final Performing Location [facility] [place] [address]
--- OUTSIDE RECORDS SUMMARY | 2024-07-22 02:03 | External Medical Summary | Summary of Care ---
Author Name Unknown Organization [facility] Address [address] [place] [address] Phone [phone] Care Team Providers Care Control Room Supervisor Name Role Phone Emily Mcdermott DO Primary Care Provider Reason for Visit * Reason Onset Date Comments Med Request 03/31/2024 Encounter Details Date Type Department Care Team (Late st Contact Info) Description 03/31/[address] [facility] [address] [facility] [place] [address] [facility] [address] Med Request Allergies Active Allergy Reactions Criticality Noted Date Comments Sulfacetamide Sodium-Sulfur Hives 03/14/20 12 documented as of this encounter (statuses as of 06/30/2024) Medications vitamin e (AQUASOL E) 400 UNIT Capsule Take 1 Capsule by mouth in the morning. Active Calcium Carb-Cholecalcif rigoberto (CALCIUM + D3) 600-200 MG-UNIT per tablet Take 1 Tablet by mouth in the morning. Active Denosumab 60 MG/ML Subcutaneous Solution Prefilled Syringe Inject 60 mg under the skin once. Active [place]-3 Fish Oil 1200 MG Oral Capsule Take by mouth. Activ e Vitamin C 500 MG Oral Capsule Take by mouth. Ac tive amLODIPine Besylate 2.5 MG Oral Tablet (Norvasc)Indicat ions:HTN, goal below 140/90 TAKE 1 TABLET BY MOUTH EVERY DAY IN THE MORNING 90 Tablet 2 12/09/19 24 Active Nirmatrelvir&Rit onavir 300/100 20 x 150 MG & 10 x 100MG Oral Tablet Therapy Pack (Paxlovid (300/100)) Take 2 pink tablets of Nirmatrelvir and 1 white tablet of Ritonavir two times a day by mouth. 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 (Household - for ages [...] ages 0-17 years) Not on file 08/24/2023 Comments No Sex and Gender Information Value Date Recorded Sex Assigned at Female 11/16/2023 5:14 PM EDT Legal Sex Female 6:58 AM EST Gender Identity Female 11/16/2023 5:14 PM EDT Sexual Orientation Straight 11/16/2023 5: 14 PM EDT documented as of this encounter Miscellaneous Notes * Telephone Encounter - Shahla SuHENRY - 03/31/2024 12:25 PM EDT Reason for patient call/what is patient requesting? Paxlovid Have you had symptoms of COVID-19 such as fever, sore throat, shortness of breath? COVID19 Symptoms:yes Date of first symptoms: 03/30/2024 Date of last fever: n/a Date of last symptoms: hoarse throat on 03/30 Have you had close exposure to someone who tested positive for COVID-19? COVID19 Exposure: yes Date of first exposure: roommate on trip for the past 10 days Date of last exposure: n/a Testing location requested: Positive COVID 19 test in the past 90 days? Clinic Test No Home test yes positive today Did you have 2 vaccines yes Boostersyes Call Details are Required documented in this encounter Plan of Treatment Upcoming Encounters Date Type Department Care Team (Late st Contact Info) Description 09/06/2024 2:00 PM EST Office Visit Neurology [facility] [address] [facility] [place] [address] Misty Hernandez CRNP [address] [place] [address] 09/09/2024 1:00 PM EST Office Visit Family Practice [facility] [address] [facility] [place] [address] Emily Mcdermott DO [address] [facility] [place] [address] 12/09/2024 9:45 AM EDT Office Visit Dermatology [facility] [address] [facility] [place] [address] Greg Sousa MD [address] [facility] [place] [address] 12/11/2024 1:30 PM EDT Nurse Only Rheumatology [place] [id number] [place] [address] Pf, Nurse Rheum [facility][note 3] [place] [address] Health Maintenance Due Date Last Done Comments Adult Wellness Visit 11/24/2003 Depression Screening 02/18/2022 02/18/2021 COVID-19 Vaccine ( season) 2024 05/12/2023, 06/29/2021, 10/07/2020, Additional history exists Influenza Vaccine (FLU shot) (#1) 2024 04/27/2023, 04/27/2022, 05/01/2021, Additional history exists Albumin/Creatinine Ratio 03/14/2025 03/14/2024, 070 08/2021 CKD HGB USE SMARTSET 39404 03/14/202503/14, 02/22/2023, 02/11/2022, Additional history exists CKD PHOS USE SMARTSET 47101 03/14/2025 08/0 08/2023, 02/11/2022, 02/03/2020, Additional history exists HbA1c 03/14/2025 03/14/2024, 07/0 08/2021, 02/04/2021 DXA Scan 09/18/2025 09/18/2023, 08/16, 09/11/2019, Additional history exists DTap/Tdap Vaccines (2 - Td or Tdap) 04/14/2027 04/14/2017, 11/26/2009, 05/24/2000 Pneumococcal Vaccine: 65+ Years Completed 03/31/2015, 04/30/2003 Zoster Vaccines Completed 08/03/2020, 03/15, 12/30/2008 VITAMIN D LEVEL ONCE IN A LIFETIME-USE SMARTSET# [id number] Completed 06/07/2024, 06/06/2023, 02/11/2022, Additional history exists [...] filedocumented as of this encounter Care Teams Control Room Supervisor Relationship Specialty Start Date End Date Emily Mcdermott DO [address] [place] [address] PCP - General Family Medicine 03/19/18 documented as of this encounter
--- OUTSIDE RECORDS SUMMARY | 2024-07-22 02:03 | External Medical Summary | Summary of Care ---
Author Name Unknown Organization [facility] Address [address] [place] [address] Phone [phone] Care Team Providers Care Beauty Sales Advisor Name Role Phone Baldemar Diaz Ghazal Primary Care Provider Reason for Visit * Reason Onset Date Comments Order Request 06/04/2024 Vit d / prolia Encounter Details Date Type Department Care Team (Late st Contact Info) Description 06/04/2024 Telephone Rheumatology [place] [id number] [place] [address] Quincy Chau CRNP [address] [place] [address] Order Request (Vit d / prolia) Allergies Active Allergy Reactions Criticality Noted Date Comments Sulfacetamide Sodium-Sulfur Hives 03/14/20 12 documented as of this encounter (statuses as of 06/05/2024) Medications Medication Sig Dispensed Refills Start Date End Date Status vitamin e (AQUASOL E) 400 UNIT Capsule Take 1 Capsule by mouth in the morning. Active Calcium Carb-Cholecalcifero l (CALCIUM + D3) 600-200 MG-UNIT per tablet Take 1 Tablet by mouth in the morning. Active Denosumab 60 MG/ML Subcutaneous Solution Prefilled Syringe Inject 60 mg under the skin once. 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[place]), KA-type lesion R kovacs 05/2017 Osteoporosis without current pathological fractu re 04/27/2012 documented as of this encounter (statuses as of 06/05/2024) Resolved Problems Problem Noted Date Diagnosed Date [...] as of this encounter (statuses as of 06/05/2024) Immunizations Name Administration Dates Next Due COVID-19 mRNA, LNP-s, No Pre serve, 2-Dose Series (Moderna) 06/29/2021,10/07/2020,09/09/2020 COVID-19, MRNA-LNP, 23-24, P F, 30 MCG/0.3 mL, 12 YRS AND ABOVE, IM (PFIZER-Comirnat) 05/12/2023 Diptheria/Tetanus (Adult) 11/26/2009,05/24/2000 Pneumococcal Conjugate Vacc, [...] No 08/24/2023 Does the household have a [facility] source of income? (Household - for ages [...] encounter Miscellaneous Notes * Telephone Encounter - Quincy Chau CRNP - 06/05/2024 12:19 PM EDT Reviewed and signed. * Telephone Encounter - Maricarmen Dumont LPN - 06/04/2024 2:34 PM EDT Chart reviewed. Patient has been seen within the last 12 months by a Rheumatology provider. Prolia authorization approved and updated in referral. Last injection has been > 6 months and 1 day. CAMorders pended for signature. Pt needs updated vit D level checked, order pended, messaged left for pt to get labs done Thank you! documented in this encounter Plan of Treatment Upcoming Encounters Date Type Department Care Team (Late st Contact Info) Description 06/11/2024 10:00 AM EDT Office Visit Rheumatology [facility] [address] [facility] [place] [address] Quincy Chau CRNP [address] [place] [address] 09/06/2024 2:00 PM EST Office Visit Neurology [facility] [address] [facility] [place] [address] Misty Hernandez CRNP [address] [place] [address] 09/09/2024 1:00 PM EST Office Visit Family Practice [facility] [address] [facility] [place] [address] Emily Mcdermott DO [address] [facility] [place] [address] 12/09/2024 9:45 AM EDT Office Visit Dermatology [facility] [address] [facility] [place] [address] Greg Sousa MD [address] [facility] [place] [address] Scheduled Orders Name Type Priority Associated Diagnoses Orde r Schedule 25-HYDROXY VITAMIN D Lab Routine Senile osteoporosis Expected: 06/04/2024, Expires: 06/04/2025 Health Maintenance Due Date Last Done Comments Adult Wellness Visit 11/24/2003 Depression Screening 02/18/2022 02/18/2021 COVID-19 Vaccine ( season) 2024 05/12/2023, 06/29/2021, 10/07/2020, Additional history exists Influenza Vaccine (FLU shot) (#1) 2024 04/27/2023, 04/27/2022, 05/01/2021, Additional history exists Albumin/Creatinine Ratio 03/14/2025 03/14/2024, 07/0 08/2021 CKD HGB USE SMARTSET [id number] 03/14/202503/14, 02/22/2023, 02/11/2022, Additional history exists CKD PHOS USE SMARTSET [id number] 03/14/2025 08/0 08/2023, 02/11/2022, 02/03/2020, Additional history exists HbA1c 03/14/2025 03/14/2024, 07/0 08/2021, 02/04/2021 DXA Scan 09/18/2025 09/18/2023, 08/16, 09/11/2019, Additional history exists DTap/Tdap Vaccines (2 - Td or Tdap) 04/14/2027 04/14/2017, 11/26/2009, 05/24/2000 Pneumococcal Vaccine: 65+ Years Completed 03/31/2015, 04/30/2003 Zoster Vaccines Completed 08/03/2020, 03/15, 12/30/2008 VITAMIN D LEVEL ONCE IN A LIFETIME-USE SMARTSET# [id number] Completed 06/06/2023, 02/11/2022, 02/04/2021, Additional history exists [...] Senile osteoporosis- Primary documented in this encounter Care Teams Beauty Sales Advisor Relationship Specialty Start Date End Date Emily Mcdermott DO [address] [place] [address] PCP - General Family Medicine 03/19/18 documented as of this encounter
--- OUTSIDE RECORDS SUMMARY | 2024-07-22 02:04 | External Medical Summary | Summary of Care ---
Author Name Unknown Organization [facility] Address [address] [place] [address] Phone [phone] Care Team Providers Care Professor Of Public Administration Name Role Phone Emily Mcdermott DO Primary Care Provider Reason for Referral * Evaluate & Treat - Unlimited Visits (Within 30 days (routine)) - Authorized Specialty Diagnoses / Procedures Referred By Darya nguyễn Referred To Contact Neurology Diagnoses Memory changes Emily Mcdermott DO [address] [place] [address] Referral ID Status Reason Start Date Expiration Date Visits Requested Visits Authorized [id number] Authorized Specialty Services Required 03/08/[phone] Question Answer Referral Priority Within 30 days (routine) Where should this appointment be scheduled? [facility] Is this referral being placed for insurance purposes ONLY No, patient needs appointment [facility] REFERRAL QUESTIONS Memory/Cognition Reason for Visit * Reason Comments Re-Check Encounter Details Date Type Department Care Team (Late st Contact Info) Description 03/08/2024 2:20 PM EDT Office Visit Family Practice [facility] [place] [address] [place] [address] Emily Mcdermott DO [address] [place] [address] Screening for lipoid disorders*; Stage 3a chronic kidney disease (HCC); Prediabetes; Senile osteoporosis; Memory changes; HTN, goal below 140/90 Allergies Active Allergy Reactions Criticality Noted Date Comments Sulfacetamide Sodium-Sulfur Hives 03/14/20 12 documented as of this encounter (statuses as of 03/09/2024) Medications Medication Sig Dispensed Refills Start Date End Date Status vitamin e (AQUASOL E) 400 UNIT Capsule Take 1 Capsule by mouth in the morning. Active Calcium Carb-Cholecalciferol (CALCIUM + D3) 600-200 MG-UNIT per tablet Take 1 Tablet by mouth in the morning. Active Denosumab 60 MG/ML Subcutaneous Solution Prefilled Syringe Inject 60 mg under the skin once. Active [place]-3 Fish Oil 1200 MG Oral Capsule Take by mouth. Activ e Vitamin C 500 MG Oral Capsule Take by mouth. 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[place]), KA-type lesion R kovacs 05/2017 Osteoporosis without current pathological fractu re 04/27/2012 documented as of this encounter (statuses as of 03/09/2024) Resolved Problems Problem Noted Date Diagnosed Date [...] as of this encounter (statuses as of 03/09/2024) Immunizations Name Administration Dates Next Due COVID-19 [...] on file documented as of this encounter Last Filed Vital Signs Vital Sign Reading Time Taken Comments Blood Pressure 124/68 03/08/2024 1:58 PM EDT Pulse 78 03/08/2024 1:58 PM EDT Temperature 36.9 C (98.4 F) 03/08/2024 1:58 PM ED T Respiratory Rate 18 03/08/2024 1:58 PM EDT Oxygen Saturation 98% 03/08/2024 1:58 PM EDT Inhaled Oxygen Concentration - - Weight 51.7 kg (114 lb) 03/08/2024 1:58 PM EDT Height - - Body Mass Index 20.19 09/05/2023 10:09 AM EST documented in this encounter Patient Instructions * Patient Instructions* Emily Mcdermott DO - 03/08/2024 2:45 PM EDT Aricept, or Namenda for memory loss. documented in this encounter Progress Notes * Emily Mcdermott DO - 03/08/2024 2:31 PM EDT Subjective: Ann Farmer is a 88 year old female. Chief Complaint Patient presents with Re-Check HPI: Patient's past medical, surgical, family, and social history were reviewed. Medications, allergies, immunizations, and health care maintenance screenings were also reviewed. Requests to connect with daughter via telephone, daughter can't be there due to covid, but concerned about pt's memory- connected and discussed concerns Would like documentation that she is having more problems, issues with cognition, discussed prior MOCA score of 25/30, c/w mild dementia, and again discussed option of aricept to prevent / slow further decline- will think about it. reviewed appropriate use, benefits, risks, side effects and alternatives. Hypertension Follow Up The patient is taking medications as instructed. No medication side effects are described. The patient is not monitoring home blood pressures. The patient denies any acute focal neurologic symptoms. The patient reports no chest pain, no orthopnea, and no dyspnea on exertion. The patient denies intermittent claudication symptoms. PHM: Patient Active Problem List Diagnosis Osteoporosis without current pathological fracture Hx of nonmelanoma skin cancer Senile osteoporosis HTN, goal below 140/90 Stage 3a chronic kidney disease Prediabetes Memory changes Current Outpatient Medications Medication Sig Dispense Refill amLODIPine Besylate 2.5 MG Oral Tablet (Norvasc) TAKE 1 TABLET BY MOUTH EVERY DAY IN THE MORNING 90Tablet 2 Vitamin C 500 MG Oral Capsule Take by mouth. [place]-3 Fish Oil 1200 MG Oral Capsule Take by mouth. Denosumab 60 MG/ML Subcutaneous Solution Prefilled Syringe Inject 60 mg under the skin once. Calcium Carb-Cholecalciferol (CALCIUM + D3) 600-200 MG-UNIT per tablet Take 1 Tablet by mouth in the morning. vitamin e (AQUASOL E) 400 UNIT Capsule Take 1 Capsule by mouth in the morning. No current facility-administered medications for this visit. Review of patient's allergies indicates: Allergen Reactions Sulfacetamide Sodium-Sulfur Hives Objective: BP 124/68 | Pulse 78 | Temp 36.9 C (98.4 F) (Tympanic) | Resp 18 | Wt 51.7 kg (114 lb) | SpO2 98% | BMI 20.19 kg/m | BSA 1.52 m Physical Exam: General: alert, healthy, and no distress Head: Normocephalic, No masses, lesions, tenderness or abnormalities Neck: supple, no adenopathy, no bruits, thyroid normal size, non-tender, without nodularity Heart: regular rate & rhythm, no murmur, and no gallops Lungs: chest symmetric with normal AP diameter, no chest deformities noted, no chest wall tenderness, lungs clear to auscultation Pulses: carotid=2/4 w/o bruits Extremities: less than 2 second capillary refill, no joint deformities, effusion, or inflammation Latest Reference Range & Units 02/22/23 09:54 02/22/23 10:02 Triglycerides <=174 mg/dL 81 Cholesterol <200 mg/dL 203 (H) Non-HDL Cholesterol <=159 mg/dL 121 HDL Cholesterol >49 mg/dL 82 LDL Cholesterol <=129 mg/dL 105 Sodium 135 - 146 mmol/L 139 Potassium 3.5 - 5.1 mmol/L 4.8 Chloride 98 - 107 mmol/L 101 CO2 22 - 32 mmol/L 28 BUN 6 - 20 mg/dL 25 (H) Creatinine 0.5 - 1.0 mg/dL 1.1 (H) Estimated Glomerular Filtration Rate >=60 mL/min 52 (L) Anion Gap 7 - 15 mmol/L 10 Glucose 70 - 120 mg/dL 110 Calcium 8.4 - 10.2 mg/dL 9.1 HGB 12.0 - 15.3 g/dL 14.2 Protein/ Creatinine Ratio, Urine <150 mg/g 109 Protein, Random Urine mg/dL 5 Creatinine, Random Urine mg/dL 46 Radiology, [facility] DXA Performed: 09/18/23 DXA Resulted: 09/19/2023 Ann Farmer Reason for testing: monitoring to assess efficacy of therapy Osteoporosis treatment (per questionnaire): A. Previous treatment: Boniva/Ibandronate B. Current treatment: Prolia/Denosumab Major risk factors: none Using a [employer] [facility] [place] images of the lumbar spine, left hip were obtained using DXA.. The bone mineral density and T scores [standard, young, normal, female population] are as follows: RESULTS: Lumbar spine: 0.942 gms/cm2 T-score: -1.0 Left femoral neck: 0.561 gms/cm2 T-score: -2.6 FRAX not indicated. IMPRESSIONS: Fracture risk is based on current National Osteoporosis Foundation (www.nof.org) Clinicians Guide and English Association of Clinical Endocrinology (AACE) Guidelines (www.aace.com) and the application of current WHO FRAX tool (https://www.mane.ac.uk/FRAX/) as well as the 2017 [place] Collegeof Rheumatology Glucocorticoid Induced Osteoporosis (GIOP) Guidelines (rheumatology.org/Practice-Rigo lity/Clinical-Support/Hsnoiska-Edkwajlp-Gwxzfankdo) using Bone mineral density derived T-scores andclinical risk factors obtained from the patient questionnaire. 1. The fracture risk is HIGH (remains HIGH) 2. The quality of the examination is GOOD. 3. No previous study for comparison. DEXA machine was recently upgraded so comparison study can notbe made SUGGESTIONS: Information concerning the evaluation and treatment of osteoporosis can be found at the National Osteoporosis Foundation website (www.nof.org) and English Association of Clinical Endocrinology (AACE-www.aace.com). Osteoporosis prevention and treatment begins by modifying risk factors (such as smoking cessation and avoiding alcohol excess) and by participating in weight-bearing activities and exercise. Issues related to fall prevention and home safety should be addressed. Current NOF guidelinessuggest 1200 to 1500 mg of calcium from diet and or supplemental sources. It is generally felt bestto get calcium from ones diet. Calcium carbonate and calcium citrate are common calcium supplement choices in most local pharmacies. If the patient is taking a proton pump inhibitor, then calcium citrate should be the preferred supplement, if that is necessary. NOF guidelines for vitamin D are 800 to 1000 units of vitamin D3 daily. However, this may best be guided by measurement of 25-OH vitamin-D level, aiming for a level between 30 to 50 units (ng/ml). Additional information can be found at the FRAX website (https://www.mane.ac.uk/FRAX/), and the [place] College of Rheumatology website (https://www.rheumatology.org/Practice-Quality/Clinical-Support/Clinical-Practic e-Guidelines). 1. The present treatment with Prolia/Denosumab may be helping to maintain bone mineral density. in this patient and should be continued. 2. A repeat study should be considered in 2 years, while on therapy RIVERA FITZGERALD M.D. ISCD Certified Clinical Herbarium Curator Department of Rheumatology [facility] ASSESSMENT/PLAN: Screening for lipoid disorders (Primary) - LIPID PANEL WITH DIRECT LDL IF TG IS HIGH; Future; Expected date: 03/08/2024 Stage 3a chronic kidney disease (HCC) - ALBUMIN / CREATININE RATIO, URINE; Future; Expected date: 03/08/2024 - PHOSPHORUS - HGB; Future; Expected date: 03/08/2024 - BASIC METABOLIC PANEL; Future; Expected date: 03/08/2024 Prediabetes Fasting sugar was a little high suggesting prediabetes or insulin resistance. This means you may develop diabetes in the next few years. You should do everything you can to prevent diabetes now including cutting out sugars, especially sugar sweetened beverages, watching carbs, switching to whole grains and eating 3-4 small servings daily. Exercising 30-60 minutes daily can help the insulin resistance a lot, and10% weight loss, if applicable can also help. Senile osteoporosis Prolia, weight bearing exercise like walking Memory changes Consider aricept, can recheck memory test next visit HTN, goal below 140/90 Well controlled. 30 min spent with patient, reviewing history, performing physical exam, reviewing labs, studies, specialist OVNs, and reports, educating and coordinating care, discussing treatment and completing note. Emily Mcdermott DO documented in this encounter Nursing Notes * Gina Card LPN - 03/08/2024 1:52 PM EDT Ann Farmer presents for 6 month recheck. Medications & HM reviewed. documented in this encounter Plan of Treatment Upcoming Encounters Date Type Department Care Team (Late st Contact Info) Description 04/11/2024 10:30 AM EDT Imaging Radiology [facility] [address] [facility] [place] [address] [facility] [place] [address] 06/11/2024 10:00 AM EDT Office Visit Rheumatology [place] [id number] [facility] [place] [address] Quincy Chau CRNP [address] [facility] [place] [address] 09/06/2024 2:00 PM EST Office Visit Neurology [facility] [address] [place] [address] [facility] [address] [facility] [address] 09/09/2024 1:00 PM EST Office Visit Family Practice [facility] [address] [place] [address] Emily Mcdermott DO [address] [place] [address] 12/09/2024 9:45 AM EDT Office Visit Dermatology [facility] [place] [address] [facility] [place] [address] Greg Sousa MD [address] [facility] [place] [address] Scheduled Orders Name Type Priority Associated Diagnoses Orde r Schedule ALBUMIN / CREATININE RATIO, URINE Lab Routine Stage 3a chronic kidney disease (HCC) Expected: 03/08/2024, Expires: 03/08/2025 PHOSPHORUS Lab Routine Stage 3a chronic kidney disease (HCC) Ordered: 03/08/2024 HGB Lab Routine Stage 3a chronic kidney disease (HCC) Expected: 03/08/2024, Expires: 03/08/2025 LIPID PANEL WITH DIRECT LDL IF TG IS HIGH Lab Routine Screening for lipoid disorders Expected: 03/08/2024, Expires: 03/08/2025 BASIC METABOLIC PANEL Lab Routine Stage 3a chronic kidney disease (HCC) Expected: 03/08/2024 (Approximate), Expires: 03/08/2025 Scheduled Referrals Name Type Priority Associated Diagnoses Orde r Schedule ADULT NEUROLOGY REFERRAL OP Referral Within 30 days (routine) Memory changes Ordered: 03/08/2024 Health Maintenance Due Date Last Done Comments Depression Screening 02/18/2022 02/18/2021 Albumin/Creatinine Ratio 02/11/2023 02/11/2022 CKD PHOS USE SMARTSET [id number] 02/11/2023 07/0 08/2021, 02/03/2020, 10/30/2018 HbA1c 02/11/2023 02/11/2022, 02/04/2021 COVID-19 Vaccine ( season) 2023 05/12/2023, 06/29/2021, 10/07/2020, Additional history exists CKD HGB USE SMARTSET [id number] 02/23/202402/22, 02/11/2022, 02/18/2021, Additional history exists Influenza Vaccine (FLU shot) (#1) 2024 04/27/2023, 04/27/2022, 05/01/2021, Additional history exists DXA Scan 09/18/2025 09/18/2023, 08/16, 09/11/2019, Additional history exists DTaP,Tdap,and Td Vaccines (2 - Td or Tdap) 04/14/2027 04/14/2017, 11/26/2009, 05/24/2000 Pneumococcal Vaccine: 65+ Years Completed 03/31/2015, 04/30/2003 Zoster Vaccines Completed 08/03/2020, 03/15, 12/30/2008 VITAMIN D LEVEL ONCE IN A LIFETIME-USE SMARTSET# [id number] Completed 06/06/2023, 02/11/2022, 02/04/2021, Additional history exists [...] encounter Visit Diagnoses Diagnosis Screening for lipoid disorders- Primary Stage 3a chronic kidney disease (HCC) Prediabetes Other abnormal glucose Senile osteoporosis Memory changes Memory loss HTN, goal below 140/90 Unspecified essential hypertension documented in this encounter Care Teams Professor Of Public Administration Relationship Specialty Start Date End Date Emily Mcdermott DO [address] [place] [address] PCP - General Family Medicine 03/19/18 documented as of this encounter"
[2024-07-22] MEDS ORDERED: ASCORBIC ACID 500 MG TAB PO SCH (09:00)
== END 2024-07-21 17:02 | disposition short-term general hospital (02) | DRG 53 ==
LOC: ED 08:19 → 2S 11:34